=== PATIENT | female | born 1990 | race Caucasian/White ===

== ENCOUNTER 2020-05-07 15:45 | Emergency (ER) | payer OTHER, SELFPAY ==
[2020-05-07 15:47] VITALS: BP 99/57; PULSE 68; PULSE 76; RESP 17; TEMP 36.9; O2SAT 100; O2SAT 99; BMI 17.5
--- NOTE | 2020-05-07 16:13 | ED.VIS.GEN ---
History of Present Illness Chief Complaint: Vag Bleeding Informant: Patient Onset: Today Narrative: 29-year-old female presents with concern for pelvic pain and vaginal bleeding. States that it began this morning. States it is aching in nature. States that she has been passing clots. Has gone through approximately 3 pads today. States that she has had issues with her period before in the past. States that she has felt lightheaded. Denies any chest pain or shortness of breath. He says she has followed up with her [employer] Dr. Trey Menon before in the past for this issue. States that she was briefly on oral contraception however it causes her to have side effects including anger and mood swings. States that every month she does have significant pain with her period which will last for approximately 1 day. Denies any vaginal discharge, fever, chills, urinary symptoms. Last menstrual period approximately 28 days ago. Past Medical History - Allergies and Home Meds Allergies/Adverse Reactions: Allergies nut - unspecified Allergy (Verified 05/07/20 15:46) Hives Primary Care Physician: Romulo Kemp DO [Primary Care Provider] - Past Medical History: None Surgical History: cholecystectomy Lives: Spouse/ Significant Other Smoking Status: Current every day smoker Alcohol: None Drugs: None Review of Systems General: Denies: Chills, Fever, Sweats Eyes: Denies: Visual changes - bilaterally, Diplopia ENT: Denies: Rhinorrhea, Sore throat Cardiovascular: Denies: Chest pain, Palpitations Respiratory: Denies: Dyspnea, Cough, Dyspnea on exertion Gastrointestinal: Denies: Abdominal pain, Nausea, Vomiting, Diarrhea, Melena, Hematochezia Genitourinary: Reports: - - vaginal bleeding. Denies: Dysuria, Hematuria, Frequency Musculoskeletal: Denies: Back pain, Extremity Pain Skin: Denies: Rash, Wounds Neurological: Reports: - - dizziness. Denies: Headache, Weakness, Numbness Physical Exam Vital Signs/Narrative: Vital Signs Temp Pulse Resp BP Pulse Ox 05/07/20 15:47 98.5 F 76 17 99/57 L 100 Inital Vital Signs reviewed: Yes General: Well nourished, Well developed, No Acute Distress Head: Normocephalic, Atraumatic Eyes: Perrl, EOMI ENT: Moist mucous membranes, No rhinorrhea Neck: Supple, Nontender Cardiovascular: Regular rate, Regular rhythm, No murmurs Respiratory: No distress, CTA bilaterally, Chest nontender Abdomen: Soft, Nondistended, Normal bowel sounds, - - TTP in the suprapubic region Back: Nontender, Normal Inspection Extremities: Nontender, No edema Skin: Normal color, No rash Neurological: Alert, Oriented x3, Cranial nerves II-XII grossly intact, Normal Strength, Normal Sensation Psychological: Normal affect, Normal Mood Diagnostic/Tx/Re-eval Laboratory Data 05/07/20 05/07/20 05/07/20 16:15 16:15 17:17 WBC 14.6 H RBC 4.27 Hgb 13.1 Hct 40.0 MCV 93.7 MCH 30.7 MCHC 32.8 RDW Std Deviation 41.0 RDW Coeff of Carline 12.1 Plt Count 232 MPV 10.4 Immature Gran % (Auto) 0.500 Neut % (Auto) 83.4 H Lymph % (Auto) 10.7 L E[place]ka % (Auto) 4.4 Eos % (Auto) 0.7 Baso % (Auto) 0.3 Absolute Neuts (auto) 12.1 H Absolute Lymphs (auto) 1.56 Nucleated RBC % 0 Sodium 140 Potassium 4.1 Chloride 109 H Carbon Dioxide 26.0 Anion Gap 5 BUN 11 Creatinine 0.77 Estim Creat Clear Calc 80.62 Est GFR (MDRD) Af Amer 113 Est GFR (MDRD) Non-Af 93 BUN/Creatinine Ratio 14.3 Glucose 115 H Calcium 8.6 Total Bilirubin 0.80 AST 12 L ALT 22 Alkaline Phosphatase 41 L Total Protein 7.3 Albumin 4.0 Globulin 3.3 Albumin/Globulin Ratio 1.2 Urine Color Urine Clarity Urine pH Ur Specific Gordon Urine Protein Urine Glucose (UA) Urine Ketones Urine Occult Blood Urine Nitrite Urine Bilirubin Urine Urobilinogen Ur Leukocyte Esterase Urine RBC Urine WBC Ur Squamous Epith Cells Urine Bacteria Urine Mucus Urine Test Negative 05/07/20 17:17 WBC RBC Hgb Hct MCV MCH MCHC RDW Std Deviation RDW Coeff of Carline Plt Count MPV Immature Gran % (Auto) Neut % (Auto) Lymph % (Auto) Eureka % (Auto) Eos % (Auto) Baso % (Auto) Absolute Neuts (auto) Absolute Lymphs (auto) Nucleated RBC % Sodium Potassium Chloride Carbon Dioxide Anion Gap BUN Creatinine Estim Creat Clear Calc Est GFR (MDRD) Af Amer Est GFR (MDRD) Non-Af BUN/Creatinine Ratio Glucose Calcium Total Bilirubin AST ALT Alkaline Phosphatase Total Protein Albumin Globulin Albumin/Globulin Ratio Urine Color Yellow Urine Clarity Clear Urine pH 7.0 Ur Specific Gordon 1.010 Urine Protein Negative Urine Glucose (UA) Normal Urine Ketones Negative Urine Occult Blood 250 H Urine Nitrite Negative Urine Bilirubin Negative Urine Urobilinogen Normal Ur Leukocyte Esterase Negative Urine RBC 0-5 SEEN Urine WBC 0 SEEN Ur Squamous Epith Cells 0-5 SEEN Urine Bacteria RARE Urine Mucus 0 SEEN Urine Test - Medical Decision Making Appears well nontoxic. Vital signs within normal limits. Benign abdominal exam. Vaginal exam shows abnormal appearing tissue on the cervix. No evidence of discharge. No significant cervical motion tenderness. Lab work does show nonspecific leukocytosis. Afebrile. Patient not concerned for STDs at this time. Patient has no unilateral tenderness on abdominal pain. Patient's pain has been intermittent and she has had these with every 1 of her periods recently. Patient was advised to follow-up with her [employer] Dr. Marquez within the next 2 to 3 days. Will be given naproxen for home. Asked to return for new or worsening symptoms. Discharged home in stable condition. ED Disposition - Plan for ED Patient: Diagnosis: Pelvic pain Instructions: ED Cramping Menstrual Prescriptions: Naproxen 500 mg PO BID #10 tab Transmission Status: Pending to [id number] Referrals: Romulo Kemp DO [Primary Care Provider] - Patti Marquez MD [STAFF PHYSICIAN] -
[2020-05-07] MEDS: 0.9% Normal Saline 1,000 ML 1000 ML IV (16:16)
[2020-05-07 16:28] LABS: Absolute Lymphocyte Count 1.56 X10^3/uL (0.83-4.51); Absolute Neutrophil Count 12.1 X10^3/uL (2.0-7.7); Basophil# 0.05 X10^3/uL; Basophil% 0.3 % (0-1); Eosinophils% 0.7 % (0-5); Hemoglobin 13.1 g/dL (12.0-15.0); Lymphocyte # 1.56 X10^3/ul (4.0); Lymphocyte % 10.7 % (19-41); Mean Corp Hgb Conc 32.8 g/dL (32-36); Mean Corpuscular Hgb 30.7 pg (27.0-32.0); Mean Corpuscular Volume 93.7 fL (81-99); Mean Platelet Vol. 10.4 fl (6.2-12.0); Monocyte# 0.64 X10^3/uL; Monocyte% 4.4 % (0-10); NRBC Flagged by Analyzer 0 % (0-5); Neutrophil # 12.13 X10^3/uL (2.7-7.7); Neutrophil % 83.4 % (47-70); Platelet Count 232 K/mm3 (150-450); RBC Distribution Width CV 12.1 % (11.6-14.6); Red Blood Count 4.27 M/mm3 (4.2-5.4); White Blood Count 14.6 K/mm3 (4.4-11.0)
[2020-05-07 16:46] LABS: ALB/GLOB Ratio 1.2 RATIO (0.9-2.4); AST(SGOT) 12 U/L (15-37); Alanine Aminotransfer ALT/SGPT 22 U/L (13-56); Alkaline Phosphatase 41 U/L (45-117); Anion Gap 5 (5-15); BUN 11 mg/dL (7-18); BUN/Creat Ratio 14.3 RATIO (10-20); Calcium,Total 8.6 mg/dL (8.5-10.1); Chloride 109 mmol/L (98-107); Creatinine, Serum 0.77 mg/dL (0.55-1.02); EST Glomerular Filtration Rate 93 mL/min (>60); Est Glom Filt Rate - Afr Amer 113 mL/min (>60); Estimated Creatinine Clearance 80.62 ml/min; Globulin 3.3 g/dL (2.2-4.2); Glucose 115 mg/dL (74-106); Potassium 4.1 mmol/L (3.5-5.1); Protein, Total 7.3 g/dL (6.4-8.2); Sodium Level 140 mmol/L (136-145)
[2020-05-07 17:23] LABS: Mucous, Urine 0 SEEN /hpf (<or=2+); White Blood Cells 0 SEEN /hpf (0-5)
[2020-05-07 17:36] LABS: Internal QC Validated? YES +Cl - CLEAR BKGD; Pregnancy, Urine Negative Negative
[2020-05-07 17:37] LABS: Color, Urine Yellow (Yellow); Glucose, Dipstick Normal (Normal); Ketone-Dipstick Negative (Negative); Leukocyte Esterase-Dipstick Negative /ul (Negative); Nitrite-Dipstick Negative (Negative); Occult Blood-Urine 250 /ul (Negative); Protein-Dipstick Negative (Negative); Urine Bilirubin Dipstick Negative (Negative); Urine Clarity Clear (Clear); Urine Urobilinogen Normal (Normal)
[2020-05-07 17:38] LABS: Bacteria RARE /hpf (None Seen); Squamous Epithelial Cells - UA 0-5 SEEN /hpf (5-10)
[2020-05-07 17:39] LABS: Red Blood Cells-Urine 0-5 SEEN /hpf (0-5)
[2020-05-07 18:23] VITALS: RESP 16
[2020-05-07 18:31] VITALS: BP 94/69; RESP 16
[2020-05-07 21:27] LABS: Chlamydia Trachomatis by PCR Negative (Negative); Neisserai gonorrhoeae by PCR Negative (Negative); Probe Check PASS; Sample Adequacy Control PASS; Specimen Processing Control PASS
== END 2020-05-07 18:32 | disposition home or self-care (01) ==
PROVIDERS: Emergency Provider Emergency Medicine; PCP Student in an Organized Health Care Education/Training Program
DX: R10.2 Pelvic and perineal pain (principal); F17.200 Nicotine dependence, unspecified, uncomplicated
CPT/HCPCS: 80053; 81001; 81025; 85025; 87210; 87491; 87591; 96360; 99283; J7030; A4216

== ENCOUNTER → 2020-05-15 | Outpatient (CLI) | payer OTHER, SELFPAY ==
[2020-05-15 11:03] VITALS: BMI 17.5
[2020-05-15 20:45] LABS: Chlamydia Trachomatis by PCR Negative (Negative); Neisserai gonorrhoeae by PCR Negative (Negative); Probe Check PASS; Sample Adequacy Control PASS; Specimen Processing Control PASS
[2020-05-26 19:43] LABS: HPV APTIMA, High Risk Positive (Negative)
== END | disposition home or self-care (01) ==
LOC: LABSPEC 17:16
PROVIDERS: PCP Student in an Organized Health Care Education/Training Program; Referring Provider Nurse Practitioner Women's Health; Visit Provider Nurse Practitioner Women's Health
DX: N89.8 Other specified noninflammatory disorders of vagina (principal); Z11.3 Encounter for screening for infections with a predominantly sexual mode of transmission; Z86.19 Personal history of other infectious and parasitic diseases; Z12.4 Encounter for screening for malignant neoplasm of cervix
CPT/HCPCS: 87491; 87591; 87624; 88175; G0145

== ENCOUNTER → 2020-05-28 | Outpatient (CLI) | payer OTHER, SELFPAY ==
[2020-05-15 11:03] VITALS: BMI 17.5
--- NOTE | 2020-05-28 07:56 | US_ITS ---
STUDY: ULTRASOUND OF THE FEMALE PELVIS - COMPLETE REASON FOR EXAM: Female, 29 years old. Menorrhagia LMP: 05/07/2020 TECHNIQUE: Transabdominal and Transvaginal TECHNICAL QUALITY: Adequate. COMPARISON: None. FINDINGS: The uterus is retroverted and is in a midline position. The uterus measures 7.4 cm x 6.4 cm x 4.7 cm. There are Nabothian cysts of the cervix. The endometrium measures 10.1 mm in thickness, and is hyperechoic. There is no demonstrated endometrial mass. There is no demonstrated myometrial mass. I.U.D. - The patient does not have an I.U.D. The right ovary is visualized. The right ovary measures 3.4 cm x 2.8 cm x 1.8 cm. There is no right ovarian cyst or ovarian mass. There is no visualized right adnexal mass or complex lesion. There is normal arterial and normal venous vascularity. The left ovary is visualized. The left ovary measures 3.5 cm x 2.7 cm x 3.1 cm. There is a 2.4 cm x 2.2 cm x 2 cm left ovarian cyst. There is no visualized left adnexal mass or complex lesion. There is normal arterial and normal venous vascularity. There is no fluid in the cul-de-sac. The pre void volume of the bladder was 109 ml. Polycystic ovary disease: No. US/Transvaginal Non- IMPRESSION: 2.4 cm x 2.2 cm x 2 cm left ovarian cyst. Electronically Signed: Eloy Aguila, at 13:50 EDT , Service support ,
--- NOTE | 2020-05-28 07:56 | US_ITS ---
STUDY: ULTRASOUND OF THE FEMALE PELVIS - COMPLETE REASON FOR EXAM: Female, 29 years old. Menorrhagia LMP: 05/07/2020 TECHNIQUE: Transabdominal and Transvaginal TECHNICAL QUALITY: Adequate. COMPARISON: None. FINDINGS: The uterus is retroverted and is in a midline position. The uterus measures 7.4 cm x 6.4 cm x 4.7 cm. There are Nabothian cysts of the cervix. The endometrium measures 10.1 mm in thickness, and is hyperechoic. There is no demonstrated endometrial mass. There is no demonstrated myometrial mass. I.U.D. - The patient does not have an I.U.D. The right ovary is visualized. The right ovary measures 3.4 cm x 2.8 cm x 1.8 cm. There is no right ovarian cyst or ovarian mass. There is no visualized right adnexal mass or complex lesion. There is normal arterial and normal venous vascularity. The left ovary is visualized. The left ovary measures 3.5 cm x 2.7 cm x 3.1 cm. There is a 2.4 cm x 2.2 cm x 2 cm left ovarian cyst. There is no visualized left adnexal mass or complex lesion. There is normal arterial and normal venous vascularity. There is no fluid in the cul-de-sac. The pre void volume of the bladder was 109 ml. Polycystic ovary disease: No. US/Pelvic (Non ) IMPRESSION: 2.4 cm x 2.2 cm x 2 cm left ovarian cyst. Electronically Signed: Eloy Aguila, at 13:50 EDT , Service support ,
== END | disposition home or self-care (01) ==
LOC: OPUS 07:56
PROVIDERS: PCP Student in an Organized Health Care Education/Training Program; Referring Provider Nurse Practitioner Women's Health; Visit Provider Nurse Practitioner Women's Health
DX: N92.0 Excessive and frequent menstruation with regular cycle (principal)
CPT/HCPCS: 76830; 76856

== ENCOUNTER 2020-06-24 08:11 | Day surgery (SDC) | payer OTHER, SELFPAY ==
[2020-06-11 13:06] VITALS: BMI 17.5
[2020-06-24] VITALS (17 sets, daily range): BP systolic 91–116; BP diastolic 53–73; PULSE 46–87; RESP 16; TEMP 36.2–37.2; O2SAT 94–100; BMI 18.0; BMI 17.9
--- NOTE | 2020-06-24 05:07 | PCM.HPOB.BLA ---
- Problem List (1) Abnormal uterine bleeding (AUB) Status: Acute Comment: failed ocp in past. recommend TVHBS (2) Pelvic pain Status: Acute Comment: plan TVH BS History and Physical Date of Admission: 06/24/20 Intake Vital Signs 06/11/20 BMI 17.5 06/11/20 Height 5 ft 5 in 06/11/20 Weight: 106 lb 06/11/20 BMI 17.6 06/11/20 BP 98/64 Intake Visit Reasons: surg. 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 Patti Milligan MD) household members: spouse number of children: 2 current occupational status: unemployed history of recent travel: No sexually active: Yes Smoking Status: Current every day smoker alcohol intake: current alcohol intake frequency: holidays/special occasions only substance use type: does not use caffeine: Yes what type of physical activity do you participate in: none seatbelt use: always do you feel safe at home: Yes HPI surg. consult TVH: Details: ASHLEY MCDERMOTT is a 29 year old who presents for ocnsultation for hysterectomy. she has a history of heavy bleeding and then has severe dysmenorrhea. she has been on control in the past three different types and she had severe mood side effects. she has had to call off work due to pain and bleeding. she is done having children. Female Reproductive History Cycle Length: 21-35 Bleeding Duration: 5 Questions: Metorrhagia: No, Sexually active: Yes, Dyspareunia: Yes, PCB: No Pregancy History 3 Elective abortions Hx Para 2 Spontaneous abortions 1 Hx # Term Pregnancies Ectopic pregnancies Hx # Pregnancies Multiple births # of living children 2 Past Pregnancies Del. Date Name GA/Weeks Outcome Route Bth Weight Infant Gen Labor Lgth Anesthesia Del [facility] Provider FOB 12/04/10 Serenity 34 live - Female 05/02/14 Taran 38 live - full term Male ROS Const Constitutional: Denies fatigue, fever(s), headache(s), increased appetite, poor appetite, weight gain or weight loss Cardio Card: Denies chest pain Resp Resp: Denies cough or dyspnea GI GI: Reports as per HPI; denies abdominal pain, constipation, nausea or vomiting : Reports as per HPI; denies difficulty urinating, painful urination, nipple discharge, urinary frequency, urinary incontinence, urinary hesitancy, urinary urgency, vaginal discharge, vaginal dryness, vaginal odor or vaginal itching Skin Skin/Breast: Denies change in hair, breast lump, breast pain, breast skin changes or nipple discharge Exam Const General: cooperative, healthy appearing, comfortable, no acute distress, well developed Nutritional Appearance: average body habitus Orientation: alert HENMT Head: normal to inspection, normocephalic Neck Neck: normal visual inspection, trachea midline Thyroid: thyroid normal Resp Effort & Inspection: normal respiratory effort GI Inspection: normal to inspection, non-distended Palpation: soft, no hepatosplenomegaly Bimanual Exam- Adnexa, other: normal adnexae, adnexae mobile, no adnexal masses, pelvic support normal Pelvic Support: normal Skin General: no rashes or lesions noted Assessment & Plan Problems 1. Pelvic pain R10.2 plan TVH BS 2. Abnormal uterine bleeding (AUB) N93.9 failed ocp in past. recommend TVHBS Plan After discussing the patient's diagnosis and treatment plan options, patient wishes to proceed with surgical management. I have discussed with the patient the risks, benefits, and alternatives of the procedure which include but are not limited to risks of anesthesia, bleeding, infection, possible damage to bowel, bladder, or surrounding vasculature which could lead to additional surgery to evaluate any complications. Patient agrees to procedure and wishes to proceed. ACOG/uptodate references given for additional information regarding procedure. Coding Level of Care Code Off vis,est,level 4 Diagnoses Pelvic pain R10.2 Abnormal uterine bleeding (AUB) N93.9 UPDATE- I have seen the patient and performed any clinically relevant updates to the history and physical exam. Patti Milligan MD
[2020-06-24 08:46] LABS: Hematocrit 42.1 % (37-47); Hemoglobin 14.3 g/dL (12.0-15.0); Mean Corpuscular Hgb 31.6 pg (27.0-32.0); Mean Corpuscular Volume 92.9 fL (81-99); Mean Platelet Vol. 10.5 fl (6.2-12.0); Platelet Count 223 K/mm3 (150-450); RBC Distribution Width CV 12.1 % (11.6-14.6); Red Blood Count 4.53 M/mm3 (4.2-5.4); White Blood Count 9.3 K/mm3 (4.4-11.0)
[2020-06-24] MEDS: Gabapentin 600 MG Tablet PO (09:00)
[2020-06-24] MEDS: Acetaminophen 500 MG Tablet 1000 MG PO ×3 (09:00→20:50)
[2020-06-24 09:08] LABS: International Normalized Ratio 1.1; Prothrombin Time (Protime)PT. 13.9 SECONDS (11.7-14.9)
[2020-06-24 09:09] LABS: Partial Thromboplast Time 30.4 Seconds (24.1-36.2)
[2020-06-24 09:10] LABS: AST(SGOT) 17 U/L (15-37); Alanine Aminotransfer ALT/SGPT 24 U/L (13-56); Albumin, Serum 4.1 g/dL (3.2-5.0); Alkaline Phosphatase 42 U/L (45-117); Bilirubin, Direct 0.16 mg/dL (0.00-0.30); Globulin 3.5 g/dL (2.2-4.2); Magnesium 1.9 mg/dL (1.6-2.6); Protein, Total 7.6 g/dL (6.4-8.2)
[2020-06-24 09:11] LABS: Bedside Glucose 90 mg/dL (70-110)
[2020-06-24] MEDS: Lactated Ringers 1,000 ML 40 ML IV (09:16)
[2020-06-24 09:52] LABS: Internal QC Validated? YES +Cl - CLEAR BKGD
[2020-06-24 09:53] LABS: Pregnancy, Urine Negative Negative
--- NOTE | 2020-06-24 10:00 | HYST_PTH ---
PATIENT: ASHLEY MCDERMOTT LOC: [facility] – [place] U#:[id number] AGE/SX: 29/F ROOM: RE06/24/[address]: Dr. Patti Milligan MD : 1990 BED: DIS: 06/25/2020 SPEC #: [id number] RECD: 06/24/20 13:54 STATUS: BIENVENIDO IGNACIO #: [id number] NEAL: 06/24/20 10:[address]: Patti Milligan DEPT: SURGICAL PATHOLOGY RECD BY: Moe Schwartz ENTERED: 06/25/20 09:31 SP TYPE: HYSTERECT OTHR DR: Dr. 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 - Focal hyperkeratosis. - Moderate chronic inflammation. - Resection margin is free of dysplastic changes. Endometrium - secretory endometrium. Myometrium - focal superficial adenomyosis. Bilateral fallopian tubes - no pathologic diagnosis. SJ:rg 06/27/20 COMMENT The entire cervix is examined. Dysplastic changes also involves the endocervical glands. Results from immunohistochemistry ([id number]) for surrogate HPV marker (p16) will be reported separately. Case has been reviewed in consultation with Dr. Matthews who concurs with the above diagnosis. IDC:AM MICROSCOPIC DESCRIPTION Slides are reviewed. GROSS DESCRIPTION Received in fixative is one container labeled with the patient's name and designated uterus, cervix and bilateral fallopian tubes. The specimen consists of a hysterectomy specimen consisting of uterus with cervix and detached bilateral fallopian tubes. The uterus with cervix weighs 89 gm and measures 8 x 6.5 x 4 cm. The serosal surface is bruce, glistening. The ectocervical mucosa is focally eroded. The external os is circular in contour. The endocervical canal measures 2.5 cm in length and the endocervical mucosa is unremarkable. The triangular endometrial cavity measures 3.5 cm in length and up to 4 cm in width. The endometrium is bruce, glistening without any mass lesion and measures 0.3 cm in thickness. Sections of the uterine wall do not reveal any mass lesion and measures up to 2 cm in thickness. The fallopian tubes are not identified as right or left. One of the fallopian tubes measure 4 cm in length and up to 0.6 cm in diameter. The fimbrial end is identified. Sections reveal unremarkable cut surfaces. The second fallopian tube is interrupted in the middle and measures 6 cm in length and up to 0.5 cm in diameter. The fimbrial end is identified. Sections reveal unremarkable cut surfaces. Lei Maker sections are submitted in eight cassettes as follows: 1 - anterior cervix, 2 - posterior cervix, 3 & 4 - anterior uterine wall, 5 & 6 - posterior uterine wall, 7 & 8 - bilateral fallopian tubes with each cassette containing one fallopian tube. / SJ:tasia 06/25/20 The rest of the cervix is submitted in six more cassettes, 9-11 - anterior cervix, 12-14 - posterior cervix. / JUICE:tasia 06/26/20 TC:5 CPT: 68465
--- NOTE | 2020-06-24 10:18 | PCM.OPRPT ---
Problem List (1) Abnormal uterine bleeding (AUB) Status: Acute Comment: failed ocp in past. recommend TVHBS (2) Pelvic pain Status: Acute Comment: plan TVH BS Report of Operation Date of Procedure: 06/24/20 Pre-Operative Diagnosis: aub pelvic pain Post-Operative Diagnosis: same Surgery/Procedure Performed:: tvh bs Description of Surgical Findings:: nl tubes ovaries spring inspector: Bernadette Green Type of Anesthesia:: General Special Medications: none Specimen's removed: uterus tubes Drains: walters Estimated Blood Loss (mL): 50 Fluids Replaced: crystalloid Description of Procedure: Patient was taken to the operating room and was placed under general anesthesia was prepped and draped in normal sterile fashion in the dorsal lithotomy position. Preoperative antibiotics and SCDs and Walters catheter was placed inside the bladder. Weighted speculum was placed in the vagina and the anterior and posterior lip of the cervix was grasped with 2 Memo clamps and circumferentially injected with dilute vasopressin. A circumferential incision was made with a scalpel and the posterior cul-de-sac was entered into sharply and a longneck speculum was placed. The anterior cul-de-sac was also dissected down and entered into sharply and the uterosacral ligaments were clamped cut and suture ligated bilaterally followed by the cardinal ligaments which were Clamped cut and suture ligated bilaterally with 0 Monocryl. The uterus serially descended and progressive bites were taken bilaterally up to the level of the utero-ovarian ligament bilaterally which was clamped transected and double ligated with 0 Monocryl suture and 0 Vicryl free tie. Bilateral fallopian tubes and ovaries were well visualized and noted be within normal limits and the bilateral fallopian tubes were transected across the base with a Harper clamp and removed and sutured with 0 Vicryl suture. Excellent hemostasis was noted. The vagina was closed with [id number] 0 Vicryl pop offs including the posterior and anterior peritoneum in the reapproximation. Excellent hemostasis was noted. All instruments removed from the vagina clear urine was noted at the end of the procedure and patient was awoken and taken recovery in stable condition. Grafts/Implants Used: none - Complications none - Admit VTE Documentation VTE Present on Admission: No VTE Mechan Device Prophylaxis: SCD's VTE Pharm Prophylaxis ordered?: Yes Multi Select Codes - Urinary/Genital Urinary/Genital CPT Codes: 81747 TVH+BS/O <250gr uterus
--- NOTE | 2020-06-24 10:21 | PCM.DC.VHY ---
Discharge Diet: No Restrictions Discharge Activity: Return to Normal Activity, May Not Drive, May Shower May resume sexual activity in: 6-8 weeks Call your doctor if your incision/area has: Continuous Slow Oozing, Sudden Increased Bleeding, Increased Pain/ Swelling, Increased Redness, Foul Smelling Discharge Call your doctor if you observe: Fever of 101 or Higher, Inability to urinate, Inability to have a bowel movement, Using more than one pad per hour Allergies/Adverse Reactions: Allergies nut - unspecified Allergy (Verified 06/24/20 08:47) Hives Medications to take at Discharge acetaminophen 325 mg tablet 325 mg PO ONCE PRN 05/15/20 Metronidazole [Flagyl] 500 mg PO BID 06/13/20 Mv-Min/Iron/Folic/Calcium/Vitk [Women's Multivitamin Tablet] 1 ea PO DAILY 06/13/20 Naproxen [Naprosyn] 250 - 500 mg PO Q8H PRN PRN #30 tab 06/24/20 Oxycodone HCl/Acetaminophen [Percocet 5-325] 1 - 2 tablet PO Q6H PRN PRN 7 Days #15 tablet 06/24/20 The following prescriptions were given: Naproxen [Naprosyn] 250 - 500 mg PO Q8H PRN PRN #30 tab PRN Reason: MILD PAIN Transmission Status: Pending to [facility] Oxycodone HCl/Acetaminophen [Percocet 5-325] 1 - 2 tablet PO Q6H PRN PRN 7 Days #15 tablet PRN Reason: Pain Transmission Status: Sent to [facility] Primary Care Physician: Romulo Kemp DO [Primary Care Provider] - Test Results: Test results from this visit will be discussed in further detail at your follow-up appointment, if applicable. Please Follow Up With: Patti Milligan MD - [phone]
[2020-06-24] MEDS: Lubricating Jelly 60 GM Tube 30 GM TOPICAL (11:15)
[2020-06-24] MEDS: Vasopressin 20 UNITS/ML Vial (12:05)
[2020-06-24] MEDS: Lactated Ringers 1,000 ML 70 ML IV (14:32)
[2020-06-24] MEDS: 0.9% Saline Lock 10 ML Syringe IV (17:17)
[2020-06-24] MEDS: Ketorolac 30 MG/ML Syringe IV ×2 (17:17→23:06)
[2020-06-24] MEDS: oxyCODONE 5 MG Tablet PO (18:36)
[2020-06-24] MEDS: Docusate Sodium 100 MG Capsule PO (20:50)
--- NOTE | 2020-06-25 | IMM_PTH ---
PATIENT: ASHLEY MCDERMOTT [place] [facility] [place][id number] AGE/SX: 29/F ROOM: RE06/24/[address]: Dr. Patti Milligan MD : 1990 BED: DIS: 06/25/2020 SPEC #: [id number] RECD: 06/26/20 13:09 STATUS: BIENVENIDO RESylvia #: [id number] NEAL: 06/25/20 00:[address]: Patti Milligan DEPT: IMMUNOHISTOCHEMISTRY RECD BY: Shanon Ellis ENTERED: 06/26/20 13:10 SP TYPE: IMMUNO OTHR DR: Dr. Romulo Kemp DO Tissues: Uterus, NOS Procedures: p16 (initial) KI-67 (add) P16 (add) PHYSICIAN & INSTITUTION [place] [address] SPECIMEN INFORMATION: Tissue Source: Uterus Clinical Info: Pelvic pain, abnormal uterine bleeding Specimen Number: [id number] #1 & 2 CPT code: 63975, 95811 x3 METHODOLOGY: Deparaffinized sections of prefer/formalin-fixed tissue or PAP/DQ stained slides are incubated with monoclonal/polyclonal antibodies/oligonucleotide probes. Localization is made via biotin free immunoperoxidase method. Appropriate controls are performed and reacted as expected. Results on target cell population are indicated in the following table: RESULTS: ANTIBODY / CLONE RESULT Block 1 P16 (E6H4) positive, focal, block-like Ki-67 (30-9) positive, moderate Block 2 P16 (E6H4) positive, focal, block-like Ki-67 (30-9) positive, moderate These tests were developed and their performance characteristics determined by [facility]. They may not have been cleared or approved by the U.S. Food and Drug Administration. The FDA has determined that such clearance or approval is not necessary. The above immunohistochemical/dualISH markers are ordered and reviewed by the Pathologist. INTERPRETATION: Uterus, hysterectomy: Mild and moderate squamous dysplasia, EDNA II (HSIL). AM:tasia 06/30/20 Case has been reviewed in consultation with Dr. Garcia who concurs with the above diagnosis. IDC:JUICE
[2020-06-25 02:49] VITALS: BP 97/57; PULSE 83; RESP 16; TEMP 37.2; O2SAT 98
[2020-06-25] MEDS: oxyCODONE 5 MG Tablet PO ×2 (02:57→06:49)
[2020-06-25] MEDS: Acetaminophen 500 MG Tablet 1000 MG PO ×2 (02:57→10:30)
--- NOTE | 2020-06-25 04:41 | PCM.PN.OB ---
Subjective: patient recovering well, denies CP, SOB, N, or V. patient is ambulating, voiding ,tolerating adequate po, and pain is controlled with oral medications. - Physical Exam Vitals/I&O's: Vital Signs Temp Pulse Resp BP Pulse Ox 99.0 F 83 16 97/57 L 98 06/25/20 02:49 06/25/20 02:49 06/25/20 02:49 06/25/20 02:49 06/25/20 02:49 Oxygen Flow Rate (L/min) 6 Oxygen Delivery Method Room Air Weight: 108 lb 0.424 oz Body Mass Index (BMI) 17.9 Intake and Output for Last 24 Hours 06/23/20 06/24/20 06/25/20 23:59 23:59 23:59 Intake Total 1203 / 1203 Output Total 850 / 850 Balance 353 / 353 General: Alert, Oriented x3 Laboratory Results 06/24/20 08:25: Urine Test Negative 06/24/20 08:34: WBC 9.3, RBC 4.53, Hgb 14.3, Hct 42.1, MCV 92.9, MCH 31.6, MCHC 34.0, RDW Std Deviation 41.0, RDW Coeff of Carline 12.1, Plt Count 223, MPV 10.5 06/24/20 08:34: PT 13.9, INR 1.1, APTT 30.4 06/24/20 08:34: Magnesium 1.9, Total Bilirubin 0.60, Direct Bilirubin 0.16, AST 17, ALT 24, Alkaline Phosphatase 42 L, Total Protein 7.6, Albumin 4.1, Globulin 3.5 06/24/20 08:34: Blood Type AB POSITIVE, Antibody Screen NEGATIVE 06/24/20 08:43: POC Glucose 90 Current Medications Acetaminophen (Tylenol) 1,000 mg PO Q6H [facility] Last Admin: 06/25/20 02:57 Dose: 1,000 mg Documented by: Docusate Sodium (Colace) 100 mg PO BID [facility] Last Admin: 06/24/20 20:50 Dose: 100 mg Documented by: Enoxaparin Sodium (Lovenox) 40 mg SC DAILY [facility] Lactated Ringer's () 1,000 mls @ 70 mls/hr IV .[id number] [facility] Stop: 06/25/20 14:30 Last Admin: 06/24/20 14:32 Dose: 70 mls/hr Documented by: Ketorolac Tromethamine (Toradol (Bkc)) 30 mg IV Q6H [facility] Stop: 06/25/20 23:31 Last Admin: 06/24/20 23:06 Dose: 30 mg Documented by: Magnesium Oxide (Mag-Ox 400) 400 mg PO DAILY PRN PRN PRN Reason: Constipation Nutritional Formula (Lactose Free) (Ensure Enlive) 120 ml PO TIDCM [facility] Ondansetron HCl (Zofran Odt) 4 mg PO Q6H PRN PRN PRN Reason: NAUSEA Oxycodone HCl (Oxyir) 5 - 10 mg PO Q4H PRN PRN PRN Reason: Pain Score 4-10/10 Last Admin: 06/25/20 02:57 Dose: 5 mg Documented by: Sodium Chloride () 10 - 40 ml IV UD PRN PRN Reason: SALINE FLUSH Last Admin: 06/24/20 17:17 Dose: 10 ml Documented by: Medical Necessity - Tobacco Use Smoking Status: Current every day smoker Tobacco Use: Cigarettes Assessment/Plan All Active Problems (Last Reviewed 05/15/20 @ 10:33 by Mary Guillen) Pelvic pain (Acute) Abnormal uterine bleeding (AUB) (Acute) HPV test positive (Acute) LGSIL on Pap smear of cervix (Acute) patient is s/p tvh POD 1 1. routine ERAS protocol postop care- increase ambulation, encourage oral intake and oral control of pain. lovenox and scds for dvt prophylaxis, patient stable for discharge to home.
[2020-06-25] MEDS: Ketorolac 30 MG/ML Syringe IV (04:56)
[2020-06-25] MEDS: Lactated Ringers 1,000 ML 70 ML IV (04:56)
[2020-06-25 06:13] LABS: Hematocrit 35.4 % (37-47); Hemoglobin 11.5 g/dL (12.0-15.0); Mean Corp Hgb Conc 32.5 g/dL (32-36); Mean Corpuscular Hgb 30.2 pg (27.0-32.0); Mean Corpuscular Volume 92.9 fL (81-99); Mean Platelet Vol. 10.7 fl (6.2-12.0); Platelet Count 215 K/mm3 (150-450); RBC Distribution Width SD 40.7 fl (35.1-43.9); Red Blood Count 3.81 M/mm3 (4.2-5.4); White Blood Count 24.1 K/mm3 (4.4-11.0)
[2020-06-25 06:42] VITALS: BP 92/51; PULSE 64; RESP 16; TEMP 37; O2SAT 99
[2020-06-25 07:25] VITALS: O2SAT 94
[2020-06-25 10:15] VITALS: BP 101/61; PULSE 65; RESP 16; TEMP 37.1; O2SAT 98
[2020-06-25] MEDS: Docusate Sodium 100 MG Capsule PO (10:31)
== END 2020-06-25 11:33 | disposition home or self-care (01) ==
LOC: SDC 08:14 → AC 08:14 → MS3 06-25 13:42
PROVIDERS: Anesthesiology; PCP Student in an Organized Health Care Education/Training Program; Referring Provider Obstetrics & Gynecology; Visit Provider Obstetrics & Gynecology
PROC: (CPT 58260; principal; 2020-06-24 09:40)
DX: N87.1 Moderate cervical dysplasia (principal); N88.0 Leukoplakia of cervix uteri; N72 Inflammatory disease of cervix uteri; N80.0 Endometriosis of uterus; K21.9 Gastro-esophageal reflux disease without esophagitis; F17.210 Nicotine dependence, cigarettes, uncomplicated; Z11.59 Encounter for screening for other viral diseases
CPT/HCPCS: 00944; 58262; 36415; 80076; 81025; 82962; 83735; 85027; 85610; 85730; 86850; 86900; 86901; 87635; 88307; 88341; 88342; 94762; 94799; 99251; 99406; J7120; A4216; G0463; J2405; J3475; U0003

== ENCOUNTER 2020-10-09 20:43 | Emergency (ER) | payer OTHER, SELFPAY ==
[2020-08-04 10:51] VITALS: BMI 17.9
[2020-10-09 20:44] VITALS: BP 140/87; PULSE 114; RESP 16; TEMP 36.2; O2SAT 100; BMI 19.3
--- NOTE | 2020-10-09 21:35 | ED.DCSUM_ITS ---
History of Present Illness Chief Complaint: Abscess Informant: Patient Narrative: 29-year-old female presenting with painful swelling in the left inguinal region. She had concern it could be abscess or possible hernia. It is tender to palpation but is not red and is not fluctuant. She not had systemic signs or symptoms of fever, chill, nausea, vomiting. States she has been otherwise healthy. She has a follow-up with her PCP tomorrow. Past Medical History - Allergies and Home Meds Allergies/Adverse Reactions: Allergies nut - unspecified Allergy (Verified 10/09/20 20:46) Hives Primary Care Physician: Romulo Kemp DO [Primary Care Provider] - Prior records reviewed: Yes Past Medical History: - - Anxiety Surgical History: cholecystectomy, - - Hysterectomy Lives: Spouse/ Significant Other Smoking Status: Current every day smoker Alcohol: None Drugs: None Review of Systems General: Denies: Chills, Fever, Sweats Eyes: Denies: Visual changes - bilaterally, Diplopia ENT: Denies: Rhinorrhea, Sore throat Cardiovascular: Denies: Chest pain, Palpitations Respiratory: Denies: Dyspnea, Cough, Dyspnea on exertion Gastrointestinal: Denies: Abdominal pain, Nausea, Vomiting, Diarrhea, Melena, Hematochezia Genitourinary: Denies: Dysuria, Hematuria, Frequency Musculoskeletal: Denies: Back pain, Extremity Pain Skin: Denies: Rash, Wounds Neurological: Denies: Headache, Weakness, Numbness Physical Exam Vital Signs/Narrative: Vital Signs Temp Pulse Resp BP Pulse Ox 10/09/20 20:44 97.1 F L 114 H 16 140/87 H 100 Inital Vital Signs reviewed: Yes General: Well nourished, Well developed, No Acute Distress Head: Normocephalic, Atraumatic Eyes: Perrl, EOMI ENT: Moist mucous membranes, No rhinorrhea Cardiovascular: Regular rate, Regular rhythm Respiratory: No distress, CTA bilaterally Abdomen: Soft, Nontender : - - Left inguinal lymphadenopathy. Back: Nontender, Normal Inspection Extremities: Nontender, No edema Skin: Normal color, No rash. Negative for: Rash Neurological: Alert, Oriented x3 Psychological: Normal affect, Normal Mood Diagnostic/Tx/Re-eval Clinical Impression(s) from Imaging Studies Abdomen/Pelvis CT 10/09/20 21:36 IMPRESSION: Complex/involuting right ovarian cyst. Trace free fluid in the pelvis, which can be physiologic. There is no appendicitis, colitis, ascites, abscess, collection, perforation or obstruction. Other nonacute findings as outlined above. Electronically Signed: Maribell Garcia MD at 23:53 EST , Service support , Laboratory Data 10/09/20 10/09/20 10/09/20 21:51 21:51 22:05 WBC 13.6 H RBC 4.75 Hgb 13.9 Hct 43.6 MCV 91.8 MCH 29.3 MCHC 31.9 L RDW Std Deviation 40.8 RDW Coeff of Carline 12.0 Plt Count 284 MPV 10.2 Immature Gran % (Auto) 0.400 Neut % (Auto) 61.8 Lymph % (Auto) 30.1 [place] % (Auto) 6.4 Eos % (Auto) 0.9 Baso % (Auto) 0.4 Absolute Neuts (auto) 8.4 H Absolute Lymphs (auto) 4.09 Nucleated RBC % 0 Sodium 138 Potassium 3.8 Chloride 104 Carbon Dioxide 28.0 Anion Gap 6 BUN 13 Creatinine 0.78 Estim Creat Clear Calc 85.34 Est GFR (MDRD) Af Amer 110 Est GFR (MDRD) Non-Af 91 BUN/Creatinine Ratio 16.6 Glucose 89 Calcium 9.7 Urine Color Yellow Urine Clarity Clear Urine pH 6.0 Ur Specific [place] 1.015 Urine Protein Negative Urine Glucose (UA) Normal Urine Ketones Negative Urine Occult Blood Negative Urine Nitrite Negative Urine Bilirubin Negative Urine Urobilinogen Normal Ur Leukocyte Esterase Negative Urine RBC 0 SEEN Urine WBC 0-5 SEEN Ur Squamous Epith Cells 0-5 SEEN Urine Bacteria 2+ Urine Mucus 0 SEEN - Medical Decision Making 29-year-old female with painful lump in the left inguinal area which feels like it could be consistent with lymphadenopathy but also could be a hernia. She had lab work which showed a slight leukocytosis at 13,000. She is not having systemic signs or symptoms. CT of the abdomen pelvis is negative. There appears to be a lymphadenopathy here on the CT. Patient has follow-up with her primary care tomorrow and will follow up with him. I counseled the patient on return precautions. Impression: 1. Left inguinal lymphadenopathy ED Disposition - Plan for ED Patient: Disposition: Home or Assisted Living Instructions: ED Lymphangitis Referrals: Romulo Kemp DO [Primary Care Provider] -
--- NOTE | 2020-10-09 21:36 | CT_ITS ---
STUDY: CT ABDOMEN AND PELVIS WITH CONTRAST REASON FOR EXAM: Female, 29 years old. LEFT GROIN PAIN, INCREASING IN SIZE AND PAIN TODAY, HX GB, HYSTERECTOMY, D and C RADIATION DOSAGE (If Supplied By Facility): CTDIvol = ( 9.28 ) mGy, DLP = ( 295.92 ) mGycm TECHNIQUE: Transaxial 3.75 mm images were obtained from the dome of the diaphragm to the symphysis pubis with oral contrast. 100mL Isovue-370 was administered. Sagittal and coronal images were reconstructed. Individualized dose optimization techniques were used for this CT. COMPARISON: CT abdomen and pelvis 08/18/2017. 07/08/2011. FINDINGS: Minimal scarring or atelectasis in the right middle lobe. The visualized portions of the heart are within normal limits. Normal liver. Gallbladder not visualized consistent with cholecystectomy. Normal postoperative extrahepatic biliary system. Normal spleen. Normal pancreas. Normal bilateral adrenal glands. Normal right kidney. Normal left kidney. Normal visualized stomach. Normal small intestine. Normal colon. The appendix is visualized and appears normal. Normal abdominal aorta. Normal inferior vena cava. Normal retroperitoneum. Normal urinary bladder. Peripherally enhancing low-attenuation in the right ovary 2.5 x 2.3 x 2.3 cm measuring 31 [place] units consistent with an involuting cyst. Uterus is surgically absent. Trace free fluid in the pelvis, which can be physiologic. Normal abdominal wall. Normal osseous structures. CT/Abdomen/Pelvis WITH Contrast IMPRESSION: Complex/involuting right ovarian cyst. Trace free fluid in the pelvis, which can be physiologic. There is no appendicitis, colitis, ascites, abscess, collection, perforation or obstruction. Other nonacute findings as outlined above. Electronically Signed: Maribell Garcia MD at 23:53 EST , Service support ,
[2020-10-09 22:06] LABS: Absolute Lymphocyte Count 4.09 X10^3/uL (0.83-4.51); Absolute Neutrophil Count 8.4 X10^3/uL (2.0-7.7); Basophil# 0.06 X10^3/uL; Basophil% 0.4 % (0-1); Eosinophil# 0.12 X10^3/uL; Eosinophils% 0.9 % (0-5); Hematocrit 43.6 % (37-47); Hemoglobin 13.9 g/dL (12.0-15.0); Lymphocyte # 4.09 X10^3/ul (4.0); Lymphocyte % 30.1 % (19-41); Mean Corp Hgb Conc 31.9 g/dL (32-36); Mean Corpuscular Hgb 29.3 pg (27.0-32.0); Mean Corpuscular Volume 91.8 fL (81-99); Mean Platelet Vol. 10.2 fl (6.2-12.0); Monocyte# 0.87 X10^3/uL; Monocyte% 6.4 % (0-10); NRBC Flagged by Analyzer 0 % (0-5); Neutrophil # 8.39 X10^3/uL (2.7-7.7); Neutrophil % 61.8 % (47-70); Platelet Count 284 K/mm3 (150-450); RBC Distribution Width SD 40.8 fl (35.1-43.9); Red Blood Count 4.75 M/mm3 (4.2-5.4); White Blood Count 13.6 K/mm3 (4.4-11.0)
[2020-10-09 22:12] LABS: Mucous, Urine 0 SEEN /hpf (<or=2+); Red Blood Cells-Urine 0 SEEN /hpf (0-5)
[2020-10-09 22:14] LABS: Color, Urine Yellow (Yellow); Glucose, Dipstick Normal (Normal); Ketone-Dipstick Negative (Negative); Leukocyte Esterase-Dipstick Negative /ul (Negative); Nitrite-Dipstick Negative (Negative); Occult Blood-Urine Negative /ul (Negative); Protein-Dipstick Negative (Negative); Specific Gravity, Urine 1.015 (1.002-1.030); Urine Bilirubin Dipstick Negative (Negative); Urine Clarity Clear (Clear); Urine Urobilinogen Normal (Normal)
[2020-10-09 22:17] LABS: Anion Gap 6 (5-15); BUN 13 mg/dL (7-18); BUN/Creat Ratio 16.6 RATIO (10-20); Calcium,Total 9.7 mg/dL (8.5-10.1); Chloride 104 mmol/L (98-107); Creatinine, Serum 0.78 mg/dL (0.55-1.02); EST Glomerular Filtration Rate 91 mL/min (>60); Est Glom Filt Rate - Afr Amer 110 mL/min (>60); Estimated Creatinine Clearance 85.34 ml/min; Glucose 89 mg/dL (74-106); Potassium 3.8 mmol/L (3.5-5.1); Sodium Level 138 mmol/L (136-145)
[2020-10-09 22:23] LABS: Bacteria 2+ /hpf (None Seen); Squamous Epithelial Cells - UA 0-5 SEEN /hpf (5-10); White Blood Cells 0-5 SEEN /hpf (0-5)
[2020-10-09] MEDS: Morphine 4 MG/ML Syringe IV (23:30)
[2020-10-09] MEDS: Ondansetron 4 MG/2 ML Vial IV (23:31)
[2020-10-09 23:32] VITALS: BP 108/70; PULSE 102; RESP 14; O2SAT 95
== END 2020-10-10 00:23 | disposition home or self-care (01) ==
PROVIDERS: Emergency Provider Student in an Organized Health Care Education/Training Program; PCP Student in an Organized Health Care Education/Training Program
DX: R59.0 Localized enlarged lymph nodes (principal); F17.200 Nicotine dependence, unspecified, uncomplicated
CPT/HCPCS: 74177; 80048; 81001; 85025; 96374; 96375; 99283; Q9967; A4216; J2405

== ENCOUNTER 2023-06-27 08:22 | Emergency (ER) | payer OTHER, SELFPAY ==
[2023-06-27 08:22] VITALS: BP 126/81; PULSE 108; RESP 16; TEMP 36.2; O2SAT 100; BMI 19.4
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
== END 2023-06-27 09:52 | disposition home or self-care (01) ==
LOC: ED 09:01
PROVIDERS: Emergency Provider Emergency Medicine; PCP Student in an Organized Health Care Education/Training Program; Visit Provider Emergency Medicine
DX: S97.82XA Crushing injury of left foot, initial encounter (principal); F17.210 Nicotine dependence, cigarettes, uncomplicated; W23.2XXA Caught, crushed, jammed or pinched between a moving and stationary object, initial encounter
CPT/HCPCS: 73630; 99282

== ENCOUNTER 2024-09-13 20:00 | Emergency (ER) | payer OTHER, SELFPAY ==
[2024-09-13 20:00] VITALS: BP 125/87; PULSE 105; RESP 26; TEMP 36.2; O2SAT 99; BMI 18.3
--- NOTE | 2024-09-13 22:11 | EDS_ITS ---
HPI History of Present Illness Chief Complaint: Laceration Detail of Chief Complaint: Injury to right little finger Informant: patient Onset/Context/Timing Onset: Today and Hours Mechanism/Context: Blunt Injury Location of pain/injuries: - (Right little finger) Quality of Pain: Aching Location: Nail of the right little finger Current Severity: Mild Maximum Severity: Moderate Worsened by: Use of right hand Relieved by: Remaining still Associated Symptoms Associated Symptoms: Negative for Parasthesias, Weakness, Loss of function or Inability to ambulate Narrative Narrative: Patient is a 33-year-old [id number] woman. She presents with injury to her left little finger. She was peeling potatoes. The potato slicer hit her nail and partially avulsed the nail. She denies pain in the finger. She denies limited range of motion. She states her last tetanus shot was when she was 14. Tetanus Immunization: >10 years Prior similar symptoms: No Recent Illness/Hospitalization: No PFSH PFSH Medical History (Updated 09/13/24 @ 22:[address] Yusuf Roe MD) EDNA III (cervical intraepithelial neoplasia III) Home Medications ?Medication ?Instructions ?Recorded ?Last Taken ?Type acetaminophen 325 mg tablet 325 mg PO ONCE PRN Headache 08/04/20 Unknown History (Tylenol) lorazepam 1 mg tablet 1 mg PO PRN PRN Anxiety 10/09/20 Unknown History Allergy/AdvReac Type Severity Reaction Status Date / Time nut - unspecified Allergy Hives Verified 09/13/24 20:00 Family History Father Heart disease Mother COPD (chronic obstructive pulmonary disease) Diabetes Grandfather Heart disease Surgical History Hx of bilateral salpingectomy History of total vaginal hysterectomy (TVH) History of oral surgery History of dilation and curettage History of cholecystectomy Social History household members: spouse number of children: 2 current occupational status: employed history of recent travel: No sexually active: Yes Smoking Status: Current every day smoker tobacco type: cigarettes alcohol intake: current alcohol intake frequency: holidays/special occasions only substance use type: does not use caffeine: Yes what type of physical activity do you participate in: none seatbelt use: always do you feel safe at home: Yes TYSHAWN ROS ED Neurologic Neurologic: Denies paresthesias or weakness Hematologic/Lymphatic Hematologic/Lymphatic: Denies easy bleeding or easy bruising EXAM Physical Exam Const Vital Signs: 09/13/24 20:00 Temperature 97.2 F L Temperature Source Temporal Pulse Rate 105 H Respiratory Rate 26 H Blood Pressure 125/87 H Blood Pressure Mean 99 Pulse Ox 99 Oxygen Delivery Method Room Air Positive well nourished and well developed General Appearance ED: well developed and NAD HEENT atraumatic Eyes PERRL and EOMs intact bilaterally Resp normal respiratory effort Cardio regular rhythm Rate: regular rate Extremity Extremity Narrative: There is injury to the nailbed of the right little finger. The extensor Intrasite tendon is functionally intact. The flexor digitorum superficialis and flexor digitorum profundus are intact. Patient has normal to point discrimination. Patient has normal capillary refill. Since there is no swelling of the digit or pain on the volar surface x-ray was not obtained this is a soft tissue injury. Neuro oriented x3 and CN's II-XII intact bilaterally Sensorium / Orientation: alert Skin No no wounds Skin Narrative: Nailbed injury PROC Procedures Other Procedures Procedure(s): Digit was anesthetized by digital block using 1% lidocaine without epinephrine. A total of 2.5 cc was infiltrated. After 10 minutes patient had no sensation in the digit. The nail was removed. Was removed in 2 pieces. There is a small flap like laceration distal ulnar side of the nailbed. Using 5-0 Vicryl 1 simple interrupted stitch was placed. The nail was cleansed. The nail was then sutured back in place. Patient's wound was irrigated with 100 cc of normal saline. In my opinion antibiotics are not indicated. Discharge Plan Triage Chief Complaint: Laceration ED Provider: Yusuf Roe Dx/Rx/DC Orders Clinical Impression: Nailbed laceration, finger Instructions: ED Laceration, All Closures Prescriptions: No Action acetaminophen [Tylenol] 325 mg tablet 325 mg PO ONCE PRN (Reason: Headache) lorazepam 1 MG tablet 1 mg PO PRN PRN (Reason: Anxiety) Patient Comments: 1 MG PO TID 5 days anxiety Primary Care Provider: Romulo Kemp Referrals: Romulo Kemp DO [Primary Care Provider] - Lebron Bates MD [Med Staff - Active Staff] - 3-5 Days Print Language: Kinyarwanda Disposition Disposition: Home, Self Care
[2024-09-13] MEDS: Lidocaine 1% (20 ml mdv) 20 ML Vial 10 ML INFILT (22:13)
[2024-09-13] MEDS: Diphth,Pertuss(Acell),Tet Vac 0.5 ML Vial IM (22:16)
== END 2024-09-13 22:36 | disposition home or self-care (01) ==
PROVIDERS: Emergency Provider Emergency Medicine; PCP Student in an Organized Health Care Education/Training Program; Referring Provider Emergency Medicine; Visit Provider Emergency Medicine
DX: S61.316A Laceration without foreign body of right little finger with damage to nail, initial encounter (principal); W26.8XXA Contact with other sharp object(s), not elsewhere classified, initial encounter; F17.210 Nicotine dependence, cigarettes, uncomplicated
CPT/HCPCS: 11760; 90715; 99282

== ENCOUNTER → 2025-02-22 | Outpatient (CLI) | payer OTHER, SELFPAY ==
[2025-02-22 12:09] LABS: Hematocrit 41.8 % (37-47); Hemoglobin 13.8 g/dL (12.0-15.0); Mean Corpuscular Hgb 30.6 pg (27.0-32.0); Mean Corpuscular Volume 92.7 fL (81-99); Mean Platelet Vol. 11.1 fl (6.2-12.0); Platelet Count 272 K/mm3 (150-450); RBC Distribution Width CV 12.2 % (11.6-14.6); RBC Distribution Width SD 41.4 fl (35.1-43.9); Red Blood Count 4.51 M/mm3 (4.2-5.4)
[2025-02-22 12:48] LABS: Free T3 3.2 pg/mL (2.18-3.98)
== END | disposition home or self-care (01) ==
LOC: LAB 11:24
PROVIDERS: PCP Student in an Organized Health Care Education/Training Program; Referring Provider Nurse Practitioner Family; Visit Provider Nurse Practitioner Family
DX: Z00.00 Encounter for general adult medical examination without abnormal findings (principal); Z83.49 Family history of other endocrine, nutritional and metabolic diseases
CPT/HCPCS: 36415; 84432; 84439; 84443; 84481; 85027; 86376; 86800

== ENCOUNTER → 2025-02-25 | Outpatient (CLI) | payer OTHER, SELFPAY ==
[2025-02-25 17:40] LABS: HIV Nonreactive (Nonreactive); Syphilis Antibodies Nonreactive (Nonreactive)
[2025-02-27 20:07] LABS: HCV Quant. RNA PCR HCV Not Detected IU/mL (.)
[2025-02-28 04:07] LABS: Chlamydia By Nucleic Acid AMP Negative (Negative); Gonococcus By Nucleic Acid AMP Negative (Negative)
[2025-02-28 12:08] LABS: HPV APTIMA, High Risk Negative (Negative)
== END | disposition home or self-care (01) ==
PROVIDERS: PCP Student in an Organized Health Care Education/Training Program; Referring Provider Nurse Practitioner Women's Health; Visit Provider Nurse Practitioner Women's Health
DX: Z12.4 Encounter for screening for malignant neoplasm of cervix (principal); Z20.2 Contact with and (suspected) exposure to infections with a predominantly sexual mode of transmission
CPT/HCPCS: 36415; 86703; 86780; 87491; 87522; 87591; 87624; 88175; G0145

== ENCOUNTER 2025-07-23 17:02 | Emergency (ER) | payer OTHER, SELFPAY ==
[2025-07-23 17:02] VITALS: BP 118/77; PULSE 100; RESP 14; TEMP 35.6; O2SAT 100; BMI 18.5
--- OUTSIDE RECORDS SUMMARY | 2025-07-23 19:07 | XMS RPT_ITS | CCD ---
Author Organization [facility] Care Team Providers Care Cloth Desizing Range Tender Name Role Phone KIMMIE, CROW Unavailable Unavailable KEMP, ROMULO Unavailable Unavailable KIMMIE, CROW Unavailable Unavailable KEMP, ROMULO Unavailable Unavailable JILLIAN MARTINEZ Unavailable Unavailable KEMP, ROMULO Unavailable Unavailable Romulo Kemp DO Primary Care Provider Romulo Kemp DO Primary Care Provider Romulo Kemp DO Primary Care Provider Pily CONSTRUCTION EQUIPMENT TECHNICIAN.LEGAL CONSULTANT, Suad Unavailable Dr. Romulo Kemp DO Primary Care Provider Pily PRIMING POWDER PREMIX BLENDER-CSuad Attending Provider Pily PRIMING POWDER PREMIX BLENDER-CSuad Referring Provider Dr. Romulo Kemp DO Referring Provider Jordi PRIMING POWDER PREMIX BLENDER-CKiara Attending Provider Jordi PRIMING POWDER PREMIX BLENDER-CKiara Referring Provider Dr. Dustin Flowers MD Attending Provider Justo, Romulo Primary Care Unavailable Kemp, Romulo Referring Unavailable Dustin Flowers Attending Unavailable Kemp, Romulo Referring Unavailable Kemp, Romulo Primary Care Unavailable Keystone PRIMING POWDER PREMIX BLENDERKiara Attending Unavailable Jordi PRIMING POWDER PREMIX BLENDERKiara Attending Unavailable Justo, Romulo Primary Care Unavailable Jordi PRIMING POWDER PREMIX BLENDER, Kiara Referring Unavailable Kemp, Romulo Primary Care Unavailable Pily PRIMING POWDER PREMIX BLENDER, Suad Referring Unavailable Pily PRIMING POWDER PREMIX BLENDER, Suad Attending Unavailable Justo, Romulo Primary Care Unavailable Roe, Yusuf Referring Unavailable Roe, Yusuf Attending Unavailable Assessment, Health Risk Referring Unavaila ble Assessment, Health Risk Attending Unavaila ble Romulo Kemp Primary Care Unavailable Marin STEWARTN.Roxana HERNANDEZ Unavailable [phone] ROMULO KEMP Primary Care Unavailable PILYSUAD Attending Unavailable ROMULO KEMP Primary Care Unavailable SELF Referring Unavailable ANABEL HUGHES Attending Unavailable ROMULO KEMP Primary Care Unavailable ROMULO KEMP Primary Care Unavailable ANABEL HUGHES Referring Unavailable Allergies Allergy Classification Reported Allergen(s) Allergy Type Date of Onset Reaction(s) Facility (13 sources) Seasonal allergy; Translations: [SEASONAL ALLERGIES] Allergy to substance 3 Other: See Comments [facility] Work Phone: (13 sources) tree nut, unspecified; Translations: [TREE NUTS] Drug Allergy 7 [facility] (2 sources) Seasonal Allergies: Uncoded; Translations: [Seasonal Allergies: Uncoded] Allergy to substance 5 [facility] (2 sources) nut - unspecified; Translations: [nut - unspecified] Allergy to substance 5 [facility] Medications Current Medications Medication Drug Class(es) Dates Sig (Normalized) Sig (Original) acetaminophen 325 mg oral tablet (16 sources) Start: 08-04-2020 take 1 tablet by mouth once as needed for headache Acetaminophen (Tylenol) 325 mg tablet Active 325 mg PO ONCE as needed for Headache August 04, 2020 12:00am Start: 05-15-2020 End: 07-10-2020 take 1 tablet by mouth once as needed for pain Acetaminophen (Tylenol) 325 mg tablet Discontinued 325 mg PO ONCE as needed for Pain Or Fever May 15, 2020 12:00am July 10, 2020 9:22am take 2 tablets by [facility] every six hours as needed acetaminophen (TYLENOL) 325 mg tablet Indications: Screening for cervical cancer , Encounter for gynecological examination with abnormal finding , Abnormal uterine bleeding Take 650 mg by mouth every 6 hours as needed. Active Comment on above: Take 650 mg by mouth every 6 hours as needed. [id number] 200 actuat albuterol 0.09 mg/actuat metered dose inhaler (13 sources) beta2-Adrenergic Agonist Start: 2018 End: 2023 take 2 puff(s) by inhalation every four hours as needed albuterol HFA (PROVENTIL HFA, VENTOLIN HFA) 90 mcg/actuation inhaler Indications: Wheezing Inhale 2 Puffs as instructed every 4 hours as needed. 1 Each 08/14/2024 Active Comment on above: Inhale 2 Puffs as in structed every 4 hours as needed. amoxicillin 875 mg / clavulanate 125 mg oral tablet (3 sources) Penicillin-class Antibacterial Start: 2023 End: 2023 take 1 tablet by mouth twice daily amoxicillin-clavulana te potassium (AUGMENTIN) 875-125 mg per tablet Indications: Dental infection Take 1 tablet by mouth two times a day for 10 days. 20 tablet 08/03/2024 08/13/2024 Active azithromycin 250 mg oral tablet (1 source) Macrolide Antimicrobial Start: 2023 End: 2023 take 2 tablets by mouth once daily, then take 1 tablet by mouth once daily azithromycin (ZITHROMAX) 250 mg tablet Take 2 tablets by mouth once daily for 1 day, THEN 1 tablet once daily for 4 days. 6 tablet 08/07/2024 08/12/2024 Active benzonatate 100 mg oral capsule (7 sources) Non-narcotic Antitussive Start: 2018 End: 2023 take 1 capsule by mouth every eight hours as needed for cough and cough benzonatate (TESSALON PERLES) 100 mg capsule Indications: Cough Take 1 capsule by mouth three times daily as needed. 40 capsule 01/05/2019 08/14/2024 Discontinued Comment on above: Take 1 capsule by [facility] three times daily as needed. cefadroxil 500 mg oral capsule (3 sources) Cephalosporin Antibacterial Start: 2023 End: 2023 take 1 capsule by mouth twice daily cefADROxil (DURICEF) 500 mg capsule Take 1 capsule by mouth two times a day for 10 days. 20 capsule 08/14/2024 08/24/2024 Active colestipol hydrochloride 1000 mg oral tablet (7 sources) Bile Acid Sequestrant Start: 2017 End: 2023 take 1 tablet by mouth once daily colestipol (COLESTID) 1 gram tablet Take 1 tablet by mouth once daily. 30 tablet 5 12/12/2017 08/14/2024 Discontinued Comment on above: Take 1 tablet by flor once daily. cyclobenzaprine hydrochloride 10 mg oral tablet (8 sources) Muscle Relaxant Start: 2020 End: 2023 take 1 tablet by mouth every twelve hours as needed cyclobenzaprine (FLEXERIL) 10 mg tablet Take 1 tablet by mouth twice daily as needed for muscle spasm. 20 tablet 1 03/15/2023 08/14/2024 Discontinued Comment on above: Take 1 tablet by flor twice daily as needed for Muscle Spasm. estradiol 1 mg oral tablet (7 sources) Estrogen Start: 2017 End: 2023 take 1 tablet by mouth once daily estradiol (ESTRACE) 1 mg tablet Take 1 tablet by mouth once daily for 10 days. 10 tablet 02/20/2018 08/14/2024 Discontinued Comment on above: Take 1 tablet by flor once daily for 10 days. FLUoxetine 10 mg oral capsule (1 source) Serotonin Reuptake Inhibitor Start: 2024 take 1 capsule by mouth once daily Fluoxetine 10 mg capsule Active 10 mg PO daily 90 May 02, 2025 12:00am fluticasone propionate 0.05 mg/actuat metered dose nasal spray (7 sources) Corticosteroid Start: 2016 End: 2023 take 2 spray(s) by mouth once daily fluticasone (FLONASE) 50 mcg/actuation nasal spray Indications: Acute non-recurrent maxillary sinusitis , Cough Use 2 Sprays in each nostril once daily. Rinse mouth after use. 1 Bottle 2 02/02/2017 08/14/2024 Discontinued Comment on above: Use 2 Sprays in each nostril once daily. Rinse mouth after use. Food Supplement, Lactose-Free (ENSURE ACTIVE HIGH PROTEIN) liqd (7 sources) Start: 2017 End: 2023 take 237 mL by mouth twice daily Food Supplement, Lactose-Free (ENSURE ACTIVE HIGH PROTEIN) liqd Indications: Severely underweight adult , Bile reflux gastritis Take 237 mL by mouth twice daily. 60 Bottle 3 12/13/2017 08/14/2024 Discontinued Start: 12-13-2017 take 237 mL by mouth twice daily Food Supplement, Lactose-Free (ENSURE ACTIVE HIGH PROTEIN) liqd Indications: Severely underweight adult , Bile reflux gastritis Take 237 mL by mouth twice daily. 60 Bottle 3 12/13/2017 Active Comment on above: Take 237 mL by mouth twice daily. 12 hr guaiFENesin 600 mg extended release oral tablet (7 sources) Start: 01-06-20 End: 08-14-20 take 2 tablets by mouth twice daily guaiFENesin (MUCINEX) 600 mg 12 hr tablet Indications: Influenza-like illness Take 2 tablets by mouth twice daily. 30 tablet 01/05/2019 08/14/2024 Discontinued Comment on above: Take 2 tablets by mo [facility] twice daily. hydrOXYzine hydrochloride 25 mg oral tablet (7 sources) Antihistamine Start: 04-20-20 End: 08-14-20 take 1 tablet by mouth every six hours as needed hydrOXYzine HCl (ATARAX) 25 mg tablet Take 1 tablet by mouth every 6 hours as needed for Itching/Rash. 30 tablet 04/20/2019 08/14/2024 Discontinued Comment on above: Take 1 tablet by flor every 6 hours as needed for Itching/Rash. 12 hr hyoscyamine sulfate 0.375 mg extended release oral tablet (9 sources) Start: 12-12-19 18 take 1 tablet by mouth twice daily hyoscyamine SR (SYMAX-SR) 0.375 mg 12 hr tablet Take 1 tablet by mouth twice daily. 60 tablet 3 12/12/2017 Active Comment on above: Take 1 tablet by flor twice daily. LORazepam 1 mg oral tablet (16 sources) Benzodiazepine Start: 10-09-20 20 Lorazepam 1 MG tablet Active 1 mg PO NEEDED as needed for Anxiety October 09, 2020 1:00am Start: 06-25-2020 End: 06-30-2020 take 1 tablet by mouth three times daily Lorazepam 1 MG tablet Discontinued 1 mg PO THREE TIMES A DAY 10 5 0 June 25, 2020 12:00am June 29, 2020 12:00am June 30, 2020 12:02am anxiety lorazepam (ATIVA N ORAL) Take by mouth. Active lorazepam (ATIVA N ORAL) Take by mouth. 0 Active Comment on above: Take by mouth. meclizine hydrochloride 12.5 mg oral tablet (7 sources) Antiemetic Start: End: take 1 tablet by mouth every six hours as needed for dizziness and dizziness meclizine (ANTIVERT) 12.5 mg tab Indications: Dizziness Take 1 tablet by mouth every 6 hours as needed (dizziness). 20 tablet 07/07/2021 08/14/2024 Discontinued Comment on above: Take 1 tablet by flor th every 6 hours as needed (dizziness). 24 hr nicotine 0.583 mg/hr transdermal system (7 sources) Cholinergic Nicotinic Agonist Start: End: apply 1 dose transdermal route every twenty-four hours nicotine (NICODERM) 14 mg/24 hr Indications: nicotine withdrawal symptoms , smoking cessation Apply 1 Patch as directed every 24 hours. 30 Patch 1 12/09/2020 08/14/2024 Discontinued Comment on above: Apply 1 Patch as dir ected every 24 hours. nitrofurantoin, macrocrystals 25 mg / nitrofurantoin, monohydrate 75 mg oral capsule (2 sources) Nitrofuran Antibacterial Start: End: take 1 capsule by mouth twice daily nitrofurantoin monohydrate and macrocrystal (MACROBID) 100 mg capsule Take 1 capsule by mouth two times a day for 5 days. 10 capsule 08/05/2024 08/10/2024 Active nystatin 230007 unt/ml oral suspension (7 sources) Polyene Antifungal Start: End: nystatin (MYCOSTATIN) 100,000 unit/mL suspension Take 5 mL by mouth four times daily. 1tsp swish in mouth for several minutes, then swallow (or expectorate) 4 times daily until gone. 200 mL 09/20/2018 08/14/2024 Discontinued Comment on above: Take 5 mL by mouth f our times daily. 1tsp swish in mouth for several minutes, then swallow (or expectorate) 4 times daily until gone. ondansetron 8 mg disintegrating oral tablet (16 sources) Serotonin-3 Receptor Antagonist Start: End: ondansetron orally disintegrating (ZOFRAN ODT) 8 mg disintegrating tablet Take one tab 30 min prior to taking azithromycin. Can repeat in 8 hrs if needed. 2 tablet 10/13/2020 08/14/2024 Discontinued Start: 08-18-2017 End: 08-14-2024 take 1 tablet by mouth every eight hours as needed for nausea Ondansetron 4 MG tablet Discontinued 4 mg PO EVERY 8 HOURS NEEDED as needed for Nausea August 18, 2017 12:00am May 15, 2020 10:32am Comment on above: DISSOLVE ONE TABLET BY MOUTH EVERY 8 HOURS NEEDED FOR NAUSEA Take one tab 30 min prior to taking azithromycin. Can repeat in 8 hrs if needed. predniSONE 20 mg oral tablet (4 sources) Start: 08-03-2024 End: 08-07-2024 take 1 tablet by mouth once daily at mealtime predniSONE (DELTASONE) 20 mg tablet Indications: Bronchitis Take 1 tablet by mouth once daily for 4 days. Take daily with food. 4 tablet 08/03/2024 08/07/2024 Active Start: 03-15-2023 End: 03-20-2023 take 2 tablets by mouth once daily predniSONE (DELTASONE) 20 mg tablet Take 2 tablets by mouth once daily for 5 days. 10 tablet 0 03/15/2023 03/20/2023 Active Comment on above: Take 2 tablets by mo [facility] once daily for 5 days. sucralfate 1000 mg oral tablet (7 sources) Aluminum Complex Start: 7 End: 4 take 1 tablet by mouth 30 minutes before bedtime sucralfate (CARAFATE) 1 gram tablet TAKE 1 PO 30 MINUTES BEFORE MEALS AND AT BEDTIME. 120 tablet 3 10/27/2017 08/14/2024 Discontinued Comment on above: TAKE 1 PO 30 MINUTES BEFORE MEALS AND AT BEDTIME. traMADol hydrochloride 50 mg oral tablet (7 sources) Opioid Agonist Start: 8 End: 4 traMADol (ULTRAM) 50 mg tablet Indications: Chronic pain syndrome Take 1 tablet by mouth as needed for Pain for up to 7 days. 28 tablet 12/13/2017 08/14/2024 Discontinued Comment on above: Take 1 tablet by flor as needed for Pain for up to 7 days. Completed/Discontinued Medications Medication Drug Class(es) Dates Sig (Normalized) Sig (Original) acetaminophen 325 mg / oxyCODONE hydrochloride 5 mg oral tablet (2 sources) Opioid Agonist Start: 06-24-2020 End: 07-01-2020 Oxycodone-Acetaminoph en 1 TABLET tablet Discontinued 1 - 2 {tbl} PO EVERY 6 HOURS NEEDED as needed for Pain 15 7 0 June 24, 2020 June 30, 2020 12:00am July 01, 2020 12:02am Other acute postprocedural pain Start: 06-24-2020 End: 07-01-2020 take 1 tablet by mouth every six hours as needed Oxycodone-Acetaminophen Discontinued 1 - 2 TABLET PO EVERY 6 HOURS NEEDED 15 7 June 24, 2020 July 01, 2020 12:02am lidocaine 0.05 mg/mg medicated patch (1 source) Antiarrhythmic, Amide Local Anesthetic Start: 02-05-2022 End: 02-10-2022 lidocaine (LIDODERM) 5 % Indications: Acute pain of right shoulder Apply 2 Patches as directed every 24 hours for 5 days. Remove old patch prior to placing new patch. Location: shoulder and collarbone 10 Patch 02/05/2022 02/10/2022 metroNIDAZOLE 500 mg oral tablet (4 sources) Nitroimidazole Antimicrobial Start: 06-13-2020 End: 07-10-2020 take 1 tablet by mouth twice daily Metronidazole 500 MG tablet Discontinued 500 mg PO TWICE A DAY June 13, 2020 12:00am July 10, 2020 9:22am bacterial infection Start: 05-15-2020 End: 06-11-2020 take 1 tablet by mouth twice daily Metronidazole (Flagyl) 500 mg tablet Discontinued 500 mg PO TWICE A DAY 14 0 May 15, 2020 12:00am June 11, 2020 1:05pm Vr-Kc-Fbhf-Fa-Ca Carb-Vit K (1 source) Start: 06-13-2020 End: 08-04-2020 Fq-Jh-Mupg-Fa-Ca Carb-Vit K Discontinued 1 EACH PO DAILY June 13, 2020 12:00am August 04, 2020 10:51am Ui-Vm-Tfyb-Fa-Ca Carb-Vit K 1 EACH tablet (1 source) Start: 06-13-2020 End: 08-04-2020 take 1 tablet by mouth once daily Bg-Hd-Qfgk-Fa-Ca Carb-Vit K 1 EACH tablet Discontinued 1 NMA PO DAILY June 13, 2020 12:00am August 04, 2020 10:51am supplement naproxen 500 mg oral tablet (6 sources) Nonsteroidal Anti-inflammatory Drug Start: 02-05-2022 End: 03-07-2022 take 1 tablet by mouth twice daily as needed for pain naproxen (NAPROSYN) 500 mg tablet Indications: Acute pain of right shoulder Take 1 tablet by mouth twice daily as needed (for pain/inflammation). Take with food. 60 tablet 02/05/2022 03/07/2022 Start: 06-24-2020 End: 07-10-2020 take 250-500 mg by mouth every eight hours as needed for pain Naproxen 250 MG tablet Discontinued 250 - 500 mg PO EVERY 8 HOURS NEEDED as needed for MILD PAIN 30 June 24, 2020 12:00am July 10, 2020 9:22am Start: 05-07-2020 End: 06-11-2020 take 1 tablet by mouth twice daily Naproxen 500 MG tablet Discontinued 500 mg PO TWICE A DAY May 07, 2020 12:00am June 11, 2020 1:06pm Comment on above: Take 1 tablet by flor twice daily as needed (for pain/inflammation). Take with food. Problems Active Problems Problem Classification Problem Date Documented Date Episodic/Chronic Anxiety disorders (12 sources) Panic disorder without agoraphobia; Translations: [Panic disorder [episodic paroxysmal anxiety]] Onset: 07-17-2015 07-17-2015 Chronic Cancer of cervix (4 sources) Carcinoma in situ of uterine cervix; Translations: [Carcinoma in situ of cervix, unspecified] 10-09-2020 Episodic Comment on above: Paps x20 years Crushing injury or internal injury (2 sources) Crush injury of left foot; Translations: [Crushing injury of left foot, initial encounter] 06-27-2023 Episodic Disorders of teeth and jaw (1 source) Infection of tooth; Translations: [Periapical abscess without sinus] 08-03-2024 Episodic Genitourinary symptoms and ill-defined conditions (1 source) Scalding pain on urination ; Translations: [Dysuria] 08-03-2024 Episodic Immunizations and screening for infectious disease (2 sources) Exposure to sexually transmissible disorder; Translations: [Contact with and (suspected) exposure to infections with a predominantly sexual mode of transmission] Onset: 02-25-2025 02-25-2025 Episodic Mood disorders (12 sources) Recurrent major depression in partial remission; Translations: [Major depressive disorder, recurrent, in partial remission] Onset: 07-17-2015 07-17-2015 Chronic Mycoses (1 source) Superficial mycosis, unspecified; Translations: [Fungal rash of torso] Onset: 02-20-2025 Episodic Open wounds of extremities (1 source) Laceration of nail bed of finger ; Translations: [Laceration without foreign body of unspecified finger with damage to nail, initial encounter] 09-21-2024 Episodic Other female genital disorders (14 sources) Abnormal uterine bleeding; Translations: [Abnormal uterine and vaginal bleeding, unspecified] Onset: 09-07-2016 09-07-2016 Chronic Comment on above: failed ocp in past. recommend TVHBS Other injuries and conditions due to external causes (1 source) Unspecified injury of right wrist, hand and finger(s), initial encounter; Translations: [Unspecified injury of right wrist, hand and finger(s), initial encounter] Onset: 05-02-2025 Episodic Other lower respiratory disease (1 source) Wheezing; Translations: [Wheezing] 08-14-2024 Episodic Other non-traumatic joint disorders (1 source) Pain in right shoulder; Translations: [Pain in joint, shoulder region] 02-05-2022 Episodic Other screening for suspected conditions (not mental disorders or infectious disease) (2 sources) Encounter for screening for malignant neoplasm of cervix; Translations: [Encounter for screening for nutritional disorder] Onset: 02-20-2025 Episodic Pancreatic disorders (not diabetes) (2 sources) Acute pancreatitis; Translations: [Acute pancreatitis without necrosis or infection, unspecified] 11-13-2013 Episodic Residual codes; unclassified (2 sources) Positive measurement finding; Translations: [Positive test for human papillomavirus (HPV)] 05-29-2020 Episodic Residual codes; unclassified (2 sources) FH: Thyroid disorder; Translations: [Family history of other endocrine, nutritional and metabolic diseases] 03-07-2025 Episodic Residual codes; unclassified (1 source) Family history of other endocrine, nutritional and metabolic diseases; Translations: [Family history of thyroid disease] Onset: 02-20-2025 Episodic Sprains and strains (2 sources) Strain of neck muscle; Translations: [Strain of muscle, fascia and tendon at neck level, initial encounter] Episodic Substance-related disorders (2 sources) Tobacco user; Translations: [Nicotine dependence, unspecified, uncomplicated] 11-13-2013 Chronic Thyroid disorders (3 sources) Garcia thyroiditis; Translations: [Autoimmune thyroiditis] Onset: 05-02-2025 05-02-2025 Chronic Viral infection (2 sources) Herpes simplex type 2 infection; Translations: [Herpesviral infection, unspecified] 02-25-2025 Episodic Comment on above: rare outbreak:last 2 022 Past or Other Problems Problem Classification Problem Date Documented Da te Episodic/Chronic Abdominal pain (16 sources) Indigestion; Translations: [Epigastric pain] Onset: 10-28-2017 10-28-2017 Episodic Comment on above: plan TV BS Chronic obstructive pulmonary disease and bronchiectasis (4 sources) Bronchitis; Translations: [Bronchitis, not specified as acute or chronic] Onset: 08-14-2024 08-03-2024 Episodic Hemorrhage during ; abruptio placenta; placenta previa (20 sources) Subchorionic hematoma; Translations: [Other antepartum hemorrhage, unspecified trimester] Onset: 04-05-2013 Resolved: 07-03-2014 10-26-2021 Episodic Other complications of (10 sources) H/O: premature delivery; Translations: [Supervision of other high risk pregnancies, unspecified trimester] Onset: 03-27-2013 Resolved: 07-03-2014 10-26-2021 Episodic Other complications of (10 sources) Maternal tobacco use in ; Translations: [Smoking (tobacco) complicating , unspecified trimester] Onset: 03-27-2013 Resolved: 07-03-2014 10-26-2021 Episodic Other complications of (10 sources) H/O: miscarriage; Translations: [Supervision of with other poor reproductive or obstetric history, unspecified trimester] Onset: 09-20-2013 Resolved: 07-03-2014 10-26-2021 Episodic Other gastrointestinal disorders (1 source) Alteration in bowel elimination; Translations: [Change in bowel habit] Onset: 10-28-2017 10-28-2017 Episodic Other gastrointestinal disorders (11 sources) Altered bowel function; Translations: [Change in bowel habit] Onset: 10-28-2017 10-28-2017 Episodic Other gastrointestinal disorders (10 sources) History of pancreatitis; Translations: [Personal history of other diseases of the digestive system] Onset: 03-27-2013 Resolved: 07-03-2014 10-26-2021 Episodic Other infections; including parasitic (10 sources) History of sexually transmitted disease; Translations: [Personal history of other infectious and parasitic diseases] Onset: 03-27-2013 Resolved: 07-03-2014 10-26-2021 Episodic Results Test Name Value Interpretation Reference Range Facility [facility] 05-06-2025 [facility] Tele[facility] (EMQ) -- ASHLEY BROWN ([id number]) 1990 F IPA Date Time Provider Department 05/06/25 ROMULO KEMP EMQ During your visit today, we recorded the following information about you: Carri Brown 05/06/2025 4:10 PM Signed Lvm for pt stating that she has a referral to see Endocrinology. Provided the number to call and schedule when ready. Will send letter in mail. Allergies As of Date: 05/06/2025 Noted Allergy Reaction SEASONAL ALLERGIES 03/27/2013 14 - Other: See Comments Comments: RUNNY NOSE, ITCHY EYES TREE NUTS 10/27/2017 4 - Hives Date Reviewed: 02/20/2025 Reviewed by: Martha Castaneda MA - Fully Assessed Reason for Visit: Appointment [[id number]] Prescriptions as of 05/06/2025 - albuterol HFA (PROVENTIL HFA, VENTOLIN HFA) 90 mcg/actuation inhaler Inhale 2 Puffs as instructed every 4 hours as needed. - lorazepam (ATIVAN ORAL) Take by mouth. - acetaminophen (TYLENOL) 325 mg tablet Take 650 mg by mouth every 6 hours as needed. Problem List As Of Date 05/06/2025 Noted Resolved History of delivery, currently *03/27/2013 07/03/2014 Tobacco use in [O99.330] 03/27/2013 07/03/2014 History of herpes genitalis [Z86.19] 03/27/2013 07/03/2014 History of pancreatitis [Z87.19] 03/27/2013 07/03/2014 Subchorionic hemorrhage [O46.8X9] 04/05/2013 07/03/2014 History of miscarriage, currently [O09*09/20/2013 07/03/2014 Low-lying placenta [O44.40] 02/18/2014 07/03/2014 Recurrent major depression in partial remission*07/17/2015 Panic disorder without agoraphobia [F41.0] 07/17/2015 Abnormal uterine bleeding [N93.9] 09/07/2016 Altered bowel habits [R19.4] 10/28/2017 Dyspepsia [R10.13] 10/28/2017 Encounter Status:Closed by CARRI BROWN on 05/06/25 Normal [facility] Endocrinology Visit Reporton 05-02-2025 Endocrinology Visit Report [facility] [address] [place] [address] OFFICE VISIT Date of Service: 05/02/25 MR#: [id number] Acct: [id number] Name: ASHLEY BROWN Rep #: [id number] : 1990 Provider: Aga Ahmadi Age/Sex: 34/F Location[place] [facility] [place] [facility] [place] Status: Signed Intake Vital Signs 02/25/25 13:36 05/02/25 10:29 Height 5 ft 5 in 5 ft 5 in Weight: 109 lb 110 lb BMI 18.1 18.3 BP 127/78 H 127/88 H Blood Pressure Location Lt brachial Position Sitting Pulse 75 Pulse Source Monitor Pulse Oximetry (%) 98 Oxygen Delivery Method room air Intake Visit Reasons: Thyroid Chief Complaint: Thyroid Allergies Seasonal Allergies: Uncoded Allergy (Mild, Verified 05/02/25 10:34) Other nut - unspecified Allergy (Verified 05/02/25 10:34) Hives Medications ???Medication ???Instructions ???Recorded ???Confirmed ???Type acetaminophen 325 mg tablet 325 mg PO ONCE PRN Headache 05/02/25 History (Tylenol) lorazepam 1 mg tablet 1 mg PO PRN PRN Anxiety 10/09/20 0 05/02/25 History fluoxetine 10 mg capsule 10 mg PO QDAY #90 caps 05/02/25 Rx PFSH Medical History (Updated 05/02/25 @ 15:[address] Dustin Flowers MD) Joint laxity Dysautonomia Garcia's thyroiditis EDNA III (cervical intraepithelial neoplasia III) Surgical History Hx of bilateral salpingectomy History of total vaginal hysterectomy (TVH) History of oral surgery History of dilation and curettage History of cholecystectomy Family History Father Heart disease Alcoholism Mother Diabetes Bladder cancer, Onset Age: 60 COPD (chronic obstructive pulmonary disease) Arthritis Cancer Uterine cancer Thyroid disorder Respiratory disease Grandfather Heart disease Arthritis Cancer Uncle Skin cancer Social History household members: spouse number of children: 2 current occupational status: employed current occupation: [employer] history of recent travel: No sexually active: Yes Smoking Status: Current every day smoker tobacco type: cigarettes alcohol intake: current alcohol intake frequency: holidays/special occasions only substance use type: does not use caffeine: Yes what type of physical activity do you participate in: none seatbelt use: always do you feel safe at home: Yes additional social history: soon to be . Has boyfriend - Female Reproductive History Menstrual Ab spontaneous: 1 HPI HPI Chief Complaint: Thyroid Details: ASHLEY BROWN, is a 34 F who presents to the office today for evaluation and management of thyroid disease. She has known Garcia's disease. In January, TSH 2.8 TPO 137 Her complaints include: tachycardia, palpitations, postural dizziness, body aches, being extra bendy (lax joints). She was on fluoxetine in the past, but it was stopped as a possible cause of her tachycardia. ROS Const Constitutional: Positive for fatigue and other (difficulty gaining weight); No weight change ENT ENT: Positive for dizziness/vertigo and balance problems Cardio Cardiology: Positive for palpitations and other (increased cardiac awareness); No chest pain at rest, chest pain with exertion or shortness of breath Musc Musculoskeletal: Positive for joint pain, myalgias and other (joint laxity) Neuro Neurology: Positive for lack of coordination and tremor(s) (Pt describes them as jitters. ) Psych Psychiatric: Positive for anxiety Skin Skin: No wounds Endo Endocrine: Positive for fatigue; No weight change Exam Const General: cooperative, healthy appearing, comfortable, no acute distress, well developed and not cushingoid Nutritional Appearance: underweight Orientation: alert, awake and oriented x3 HENMT Head: normal to inspection Ears: hearing grossly normal bilaterally Nose: external nose normal Mouth: oral mucosae normal Eyes General: appearance normal, both eyes and all related structures Alignment and Position: alignment normal Periorbital: periorbital findings normal Eyelids: eyelids normal Conjunctivae: conjunctivae normal Neck Neck: normal visual inspection Neck mass: No Thyroid: thyroid normal Lymphatic: no lymphadenopathy noted Chest Chest palpation inspection: normal inspection of the chest Resp Effort Inspection: normal respiratory effort, able to speak in complete sentences, symmetric chest movement, no audible wheezes and no cough Auscultation: Bilateral: Clear to Auscultation Cardio Rate: regular rate Rhythm: regular rhythm Pulses: posterior tibial pulses present Musc Other: Extreme joint laxity, prominent ears Skin General: no nelda (more content not included)... Normal [facility] 03[facility]07[facility]2025 [facility] -- ASHLEY BROWN ([id number]) 1990 F [facility] Date Time Provider Department 03/07/25 [facility] During your visit today, we recorded the following information about you: Aga Fong, ASTER 03/07/2025 1:48 PM Signed [facility] reports they received a referral from [facility] provider for patient to see Endo due to family history of thyroid disease. States if labs or documentation do not show a valid reason for referral for patient to see Endo they will not see patient. They are able to view patient's thyroid labs and state they are normal. Pt does not take medications that would qualify for referral to endo. Suad Nascimento APRN.[facility] 03/07/2025 1:52 PM Signed I agree with this and stated the same in the previous message. Please let patient know. Suad Nascimento APRN.Martha Ritchie MA 03/07/2025 3:37 PM Signed Sent to pt via message MIN Foster Sherrie, RN 03/11/2025 12:39 PM Signed Ivanna from [facility] calling and requesting pt's recent OV note be sent to them for further review to re-determine if Dr. Flowers will see pt or not. Faxed as requested. ASTER Neri M Robin, RN 03/11/2025 3:02 PM Signed Faxed recent ov notes to [facility]- states they only received 1 page of the last fax. . Allergies As of Date: 03/07/2025 Noted Allergy Reaction SEASONAL ALLERGIES 03/27/2013 14 - Other: See Comments Comments: RUNNY NOSE, ITCHY EYES TREE NUTS 10/27/2017 4 - Hives Date Reviewed: 02/20/2025 Reviewed by: Martha Castaneda MA - Fully Assessed Reason for Visit: Referral to Endo [Other] Prescriptions as of 03/11/2025 - albuterol HFA (PROVENTIL HFA, VENTOLIN HFA) 90 mcg/actuation inhaler Inhale 2 Puffs as instructed every 4 hours as needed. - lorazepam (ATIVAN ORAL) Take by mouth. - acetaminophen (TYLENOL) 325 mg tablet Take 650 mg by mouth every 6 hours as needed. Problem List As Of Date 03/07/2025 Noted Resolved History of delivery, currently *03/27/2013 07/03/2014 Tobacco use in [O99.330] 03/27/2013 07/03/2014 History of herpes genitalis [Z86.19] 03/27/2013 07/03/2014 History of pancreatitis [Z87.19] 03/27/2013 07/03/2014 Subchorionic hemorrhage [O46.8X9] 04/05/2013 07/03/2014 History of miscarriage, currently [O09*09/20/2013 07/03/2014 Low-lying placenta [O44.40] 02/18/2014 07/03/2014 Recurrent major depression in partial remission*07/17/2015 Panic disorder without agoraphobia [F41.0] 07/17/2015 Abnormal uterine bleeding [N93.9] 09/07/2016 Altered bowel habits [R19.4] 10/28/2017 Dyspepsia [R10.13] 10/28/2017 Encounter Status:Closed by MARTHA CASTANEDA on 03/07/25 [facility] 03-06-2025 [facility] ([facility] -- ASHLEY BROWN ([id number]) 1990 F [facility] Date Time Provider Department 03/06/25 [facility] During your visit today, we recorded the following information about you: Margaret Peraza 03/06/2025 1:47 PM Signed Patient is requesting a referral to Endocrinology to see Dr. Flowers after her thyroid labs came back high. Please review and advise patient. Margaret Peraza March 06, 2025 1:46 PM Martha Castaneda MA 03/06/2025 6:16 PM Signed See thyroid labs attached-- Scan on 03/06/2025 8:35 AM by Provider, External, PAFeleciaC: Miscellaneous Lab Suad Nascimento APRN.DAVID 03/07/2025 7:03 AM Signed I can send her a consult if she would like. However, the elevated labs are not significantly elevated, and all they show is that she is at increased risk to develop hypothyroidism. This is not indicative of a thyroid problem. Endocrinology consult placed, please fax per her request if she would still like to see Dr. Flowers. Suad Nascimento APRN.Martha Ritchie MA 03/07/2025 9:17 AM Signed Pt informed. Consult faxed per pt request Martha Castaneda MA Allergies As of Date: 03/06/2025 Noted Allergy Reaction SEASONAL ALLERGIES 03/27/2013 14 - Other: See Comments Comments: RUNNY NOSE, ITCHY EYES TREE NUTS 10/27/2017 4 - Hives Date Reviewed: 02/20/2025 Reviewed by: Martha Castaneda MA - Fully Assessed Reason for Visit: Referral to Endocrinology [Other] Primary Visit Diagnosis:Family history of thyroid disease [Z83.49] Order(s):CONSULT TO ENDOCRINOLOGY [9007] Order #: [id number]: 1 FUTURE Prescriptions as of 03/07/2025 - albuterol HFA (PROVENTIL HFA, VENTOLIN HFA) 90 mcg/actuation inhaler Inhale 2 Puffs as instructed every 4 hours as needed. - lorazepam (ATIVAN ORAL) Take by mouth. - acetaminophen (TYLENOL) 325 mg tablet Take 650 mg by mouth every 6 hours as needed. Problem List As Of Date 03/06/2025 Noted Resolved History of delivery, currently *03/27/2013 07/03/2014 Tobacco use in [O99.330] 03/27/2013 07/03/2014 History of herpes genitalis [Z86.19] 03/27/2013 07/03/2014 History of pancreatitis [Z87.19] 03/27/2013 07/03/2014 Subchorionic hemorrhage [O46.8X9] 04/05/2013 07/03/2014 History of miscarriage, currently [O09*09/20/2013 07/03/2014 Low-lying placenta [O44.40] 02/18/2014 07/03/2014 Recurrent major depression in partial remission*07/17/2015 Panic disorder without agoraphobia [F41.0] 07/17/2015 Abnormal uterine bleeding [N93.9] 09/07/2016 Altered bowel habits [R19.4] 10/28/2017 Dyspepsia [R10.13] 10/28/2017 Encounter Status:Closed by MARTHA CASTANEDA on 03/07/25 Normal [facility] Thyroglobulin w/Anti-TG ABon 03-05-2025 TG-ULICES 27 ng/mL Normal . [facility] Comment on above: Result Comment: This test was developed and its performance characteristics determined by [facility]. It has not been cleared or approved by the Food and Drug Administration. Reference Range: Pubertal Children and Adults: <40 According to the National Academy of Clinical Biochemistry, the reference interval for Thyroglobulin (TG) should be related to euthyroid patients and not for patients who underwent thyroidectomy. TG reference intervals for these patients depend on the residual mass of the thyroid tissue left after surgery. Establishing a post-operative baseline is recommended. The assay quantitation limit is 2.0 ng/mL. Performed By: #### L 501.63231, L501.9520, L506.0400, L3300.6750, L100.0500, L3300.6820 ####[facility] [address] [place], [address] Thyroid Antibodieson 025 TG AB 1.1 IU/mL High 0.0-0.9 [facility] Comment on above: Result Comment: Thyr oglobulin Antibody measured by [employer] Kaylene Methodology It should be noted that the presence of thyroglobulin antibodies may not be pathogenic nor diagnostic, especially at very low levels. The assay chemical instrumentation officer has found that four percent of individuals without evidence of thyroid disease or autoimmunity will have positive TgAb levels up to 4 IU/mL. Performed By: #### L 501.61431, L501.9520, L506.0400, L3300.6750, L100.0500, L3300.6820 ####[facility] [address] [facility] [place], [address] THYR PEROX AB 137 IU/mL High 0-34 [facility] Comment on above: Result Comment: Perf ormed at: CB - [facility] [address] [id number] Canine Deputy: Toby Reese PhD, Phone: [phone] Performed at: [facility] [place] [id number] Canine Deputy: Sonny Hughes MD, Phone: [phone] Performed By: #### L 501.00978, L501.9520, L506.0400, L3300.6750, L100.0500, L3300.6820 ####[facility] [address] [place], [address] Chlamydia/GC TORIE aptimaon CHLAMY,NUC ACID Negative Normal Negative [facility] Comment on above: Performed By: #### L 7000.1800, L7400.0280 #### [facility] [address] [place], [address] GC BY NUC ACID Negative Normal Negative [facility] Comment on above: Result Comment: Perf ormed at: =G - [facility] [address] [id number] Canine Deputy: Bebe Rodgers MD, Phone: [phone] Performed By: #### L 7000.1800, L7400.0280 #### [facility] [address] [place], [address] PAP IG HPV APTIMA 16/18,45on 02-28-2025 ADEQ Comment Normal . [facility] Comment on above: Order Comment: Speci men Comment: [id number] Specimen Comment: No. of containers..01 ThinPrep Vial Result Comment: Sati sfactory for evaluation. No endocervical cells are present. This is consistent with a history of hysterectomy. Performed By: #### L 7000.1800, L7400.0280 #### [facility] [address] [place], [address] COMM . Normal . [facility] Comment on above: Order Comment: Speci men Comment: [id number] Specimen Comment: No. of containers..01 ThinPrep Vial Performed By: #### L 7000.1800, L7400.0280 #### [facility] [address] [place], [address] COMMENT Comment Normal . [facility] Comment on above: Order Comment: Speci men Comment: [id number] Specimen Comment: No. of containers..01 ThinPrep Vial Result Comment: This liquid based ThinPrep(R) pap test was screened with the use of an image guided system. Performed By: #### L 7000.1800, L7400.0280 #### [facility] [address] [place], [address] DIAG Comment Normal . [facility] Comment on above: Order Comment: Speci men Comment: [id number] Specimen Comment: No. of containers..01 ThinPrep Vial Result Comment: NEGA TIVE FOR INTRAEPITHELIAL LESION OR MALIGNANCY. CELLULAR CHANGES ASSOCIATED WITH INFLAMMATION ARE PRESENT. Performed By: #### L 7000.1800, L7400.0280 #### [facility] [address] [place], [address] HPV APTIMA, HR Negative Normal Negative [facility] Comment on above: Order Comment: Speci men Comment: [id number] Specimen Comment: No. of containers..01 ThinPrep Vial Result Comment: This nucleic acid amplification test detects fourteen high- risk HPV types (16,18,31,33,35,39,45,51,52,56,58,59,66,68) without differentiation. Performed By: #### L 7000.1800, L7400.0280 #### [facility] [address] [place], [address] HPV Clarissa Rfx Comment Normal . [facility] Comment on above: Order Comment: Speci men Comment: [id number] Specimen Comment: No. of containers..01 ThinPrep Vial Result Comment: Crit eria not met, HPV Genotype not performed. Performed at: - [address] [id number] Canine Deputy: Bebe Rodgers MD, Phone: [phone] Performed at: = - [facility], [place] [id number] Canine Deputy: Bebe Rodgers MD, Phone: [phone] Performed By: #### L 7000.1800, L7400.0280 #### [facility] [address] [place], [place], [address] PAPSMR Comment Normal . [facility] Comment on above: Order Comment: Speci men Comment: [id number] Specimen Comment: No. of containers..01 ThinPrep Vial Result Comment: The Pap smear is a screening test designed to aid in the detection of premalignant and malignant conditions of the uterine cervix. It is not a diagnostic procedure and should not be used as the sole means of detecting cervical cancer. Both false-positive and false-negative reports do occur. Performed By: #### L 7000.1800, L7400.0280 #### [facility] [address] [place], [place], [id number] PERFORM Comment Normal . [facility] Comment on above: Order Comment: Speci men Comment: [id number] Specimen Comment: No. of containers..01 ThinPrep Vial Result Comment: Gómez Sanchez, Jewel Sorter (ASCP) Performed By: #### L 7000.1800, L7400.0280 #### [facility] [address] 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 [facility] Comment on above: Performed By: #### L 7000.7000, L509.8002, L3890.6006 ####[facility] [address] [place], [address] HCV QT RNA PCR Not detected Normal . [facility] Comment on above: Performed By: #### L 7000.7000, L509.8002, L3890.6006 ####[facility] [address] [place], [address] TEST INFO: Comment Normal . [facility] Comment on above: Result Comment: The quantitative range of this assay is 15 IU/mL to 100 million IU/mL. Performed at: [address], [place], [place] [id number] Canine Deputy: Cheryl De La Rosa MD, Phone: [phone] Performed By: #### L 7000.7000, L509.8002, L3890.6006 ####[facility] [address] [place], [address] Cervical or vaginal specimen microscopic examination by liquid based cytology (reportOrdered By: Kiara Bacon on 02-25-2025 Cytology report Cyto stain.thin prep Doc (Cvx/Vag) Comment . [facility] Comment on above: Criteria not met, HP V Genotype not performed.Performed at: [address] [id number] Director: Bebe Rodgers MD, Phone: [phone] at: =[address] [id number] Director: Bebe Rodgers MD, Phone: [phone] Cervical or vagninal specime n microscopic examination by cytology stain (reported asOrdered By: Kiara Bacon on 02-25-2025 Cytology report Cyto stain Doc (Cvx/Vag) Comment . [facility] Comment on above: The Pap smear is a s creening test designed to aid in thedetection of premalignant and malignant conditions of theuterine cervix. It is not a diagnostic procedure andshould not be used as the sole means of detecting cervicalcancer. Both false-positive and false-negative reports dooccur. Chlamydia trachomatis rRNA d etection by probe and target amplification methodOrdered By: Kiara Bacon on 02-25-2025 C. trachomatis rRNA TORIE+probe Ql (Unsp spec) Negative Negative [facility] Detection in cervical specim en of any of human papilloma virus (HPV) 16, 18, 31, 33,Ordered By: Kiara Bacon on 02-25-2025 HPV 16+18+31+33+35+39+45+ 51+52+56+58+59+66+68 DNA Probe+sig amp Ql (Cvx) Negative Negative [facility] Comment on above: This nucleic acid am plification test detects fourteen high- risk HPV types (16,18,31,33,35,39,45,51,52,56,58,59,66,68)without differentiation. HIVon 02-25-2025 HIV Non-Reactive Normal Nonreactive [facility] Comment on above: Result Comment: Non- Reactive Reactive Repeatedly reactive samples must be confirmed according to CDC recommended confirmatory algorithms. The subresults for either HIVAG or AHIV can be used as an aid in the selection of the confirmation algorithm for reactive samples. [facility] Order the HIV antibody detection and differentiation: lc#[id number] Performed By: #### L 7000.7000, L509.8002, L3890.6006 ####[facility] [address] [place], [place], [address] Laboratory - CytologyOrdered By: Kiara Bacon on 02-25-2025 Jewel Sorter Cyto stain Nom (Cvx/Vag) [ID] Comment . [facility] Comment on above: Daya Weinberg gist (ASCP) Laboratory - Miscellaneous t estsOrdered By: Kiara Bacon on 02-25-2025 Service comment (Unsp spec) [Interp] . . [facility] Neisseria gonorrhoeae nuclei c acid detection by amplified probe techniqueOrdered By: Kiara Bacon on 02-25-2025 N. gonorrhoeae DNA TORIE+probe Ql (Unsp spec) Negative Negative [facility] Comment on above: Performed at: [address] [id number] Director: Bebe Rodgers MD, Phone: [phone] No Panel InformationOrdered By: Kiara Bacon on 02-25-2025 Pap Smear Specimen Adequacy Comment . [facility] Comment on above: Satisfactory for michelle luation. No endocervical cells are present. This isconsistent with a history of hysterectomy. POC Trichomonas (Rapid) Negative [facility] Addendum Document Comment . [facility] Comment on above: The quantitative ran ge of this assay is 15 IU/mL to 100million IU/mL.Performed at: [address] [id number] Director: Cheryl De La Rosa MD, Phone: [phone] HIV (1&2) Antibody Non-Reactive Nonreactive [facility] Comment on above: Non-ReactiveReactive Repeatedly reactive samples must be confirmed according to CDC recommended confirmatory algorithms. The subresults for either HIVAG or AHIV can be used as an aid in the selection of the confirmation algorithm for reactive samples.Send out specimens with Reactive results to [facility] for confirmation.Order the HIV antibody detection and differentiation: #[id number] Bed Setter Office Visit Reporton 02-25-2025 Bed Setter Office Visit Report [facility] [address], [address] [place] [address] OFFICE VISIT Date of Service: 02/25/25 MR#: [id number] Acct: [id number] Name: ASHLEY BROWN Rep #: [id number] : 1990 Provider: EMIR dickson Age/Sex: 34/F Location: [facility] Status: Signed Intake Vital Signs 09/13/24 20:00 02/25/25 13:36 Height 5 ft 5 in 5 ft 5 in Weight: 109 lb BMI 18.1 BP 127/78 H 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: No Is patient in pain?: No Allergies Seasonal Allergies: Uncoded Allergy (Mild, Verified 02/25/25 13:55) Other nut - unspecified Allergy (Verified 02/25/25 13:55) Hives Medications ???Medication ???Instructions ???Recorded ???Confirmed ???Type acetaminophen 325 mg tablet 325 mg PO ONCE PRN Headache 02/25/25 History (Tylenol) lorazepam 1 mg tablet 1 mg PO PRN PRN Anxiety 10/09/20 0 02/25/25 History Is last menstrual period known: No Post menopausal: No Patient : No : No PFSH Medical History (Updated 02/25/25 @ 14:02 by Kiara Bacon NP, ANNABEL-C) EDNA III (cervical intraepithelial neoplasia III) Surgical History Hx of bilateral salpingectomy History of total vaginal hysterectomy (TVH) History of oral surgery History of dilation and curettage History of cholecystectomy Family History (Updated 02/25/25 @ 13:43 by Kiara Powell) Father Heart disease Mother Diabetes Bladder cancer, Onset Age: 60 COPD (chronic obstructive pulmonary disease) Grandfather Heart disease Uncle Skin cancer Social History (Updated 02/25/25 @ 13:44 by Kiara Powell) household members: spouse number of children: 2 current occupational status: employed current occupation: [employer] history of recent travel: No sexually active: Yes Smoking Status: Current every day smoker tobacco type: cigarettes alcohol intake: current alcohol intake frequency: holidays/special occasions only substance use type: does not use caffeine: Yes what type of physical activity do you participate in: none seatbelt use: always do you feel safe at home: Yes additional social history: soon to be . Has boyfriend - History 3 Elective abortions Hx Para 2 Spontaneous abortions 1 Hx # Term Pregnancies Ectopic pregnancies Hx # Pregnancies Multiple births # of living children 2 Past Pregnancies Del. Date Name GA/Weeks Outcome Route Bth Weight Infant Gen Labor Lgth Anesthesia Del Locatn Provider FOB 12/04/10 Se[facility]ity 34 live - Female 05/02/14 Taran 38 live - full term Male HPI Encounter for routine gynecological examination Details: ASHLEY BROWN is a 34 year old who presents for annual exam. Last exam 2019. New sexual partner. Last PAP: EDNA 3 at time of hysterectomy, paps yearly X 20 yr from 2020 History of abnormal PAP: yes Last mammogram: age 39 Other preventative health care screenings: [facility] Female Reproductive History Questions: sexually active: Yes, dyspareunia: No and PCB: No ROS Const Constitutional: Denies fatigue, weight gain or weight loss Cardio Card: Denies chest pain Resp Resp: Denies cough or dyspnea on exertion GI GI: Denies abdominal pain, bloating, change in stool character, constipation or vomiting : Reports as per HPI; Denies difficulty voiding, pelvic pain, urinary frequency, urinary incontinence, urinary urgency, vaginal discharge or vaginal pruritus Exam Const General: cooperative, healthy appearing, no acute distress and well developed Orientation: alert, oriented to person and oriented to place HENMT Head: normal to inspection Neck Neck: normal visual inspection Thyroid: thyroid normal Lymphatic: no lymphadenopathy noted Chest Breast inspection: normal inspection of the breasts and normal inspection of the axillae Breast palpation: normal palpation of the breasts, normal palpation of the axillae and no axillary lymphadenopathy Resp Effort Inspection: normal respiratory effort GI Palpation: soft, no masses and nontender Rectal Exam: deferred External Female Exam: normal external appearance and normal appearance of the urethra Urethra: normal appearance of the urethra and normal palpation Speculum Exam - Vagina: normal appearance of the vagina and normal vaginal discharge Speculum Exam - Cervix: absent Bimanual Exam- Vagina Uterus: normal bimanual exam and uterus absent Bimanual Exam- Adnexa, other: normal adnexae, no masses, normal and non-tender Pelvic Support: normal Neuro General: patient alert and patient oriented x3 Psych Affect: normal affect Coding Level of Care Code Off vis,new,prev 18-39yrs Diagnoses Encounter for obstetrician and gynaecologist (more content not included)... Normal [facility] Serum or plasma hepatitis C virus RNA measurement by probe and target amplification mOrdered By: Kiara Bacon on 02-25-2025 HCV RNA TORIE+probe Qn Not detected . [facility] Syphilis Antibodieson 2024 Syphilis Abs Non-Reactive Normal Nonreactive [facility] Comment on above: Performed By: #### L 7000.7000, L509.8002, L3890.6006 #### [facility] [address] [place], [address] CBC-Complete Blood Cnt No Di ffon 02-22-2025 Erythrocyte distribution width (RBC) [Ratio] 12.2 % Normal 11.6-14.6 [facility] Comment on above: Performed By: #### L 501.58315, L501.9520, L506.0400, L3300.6750, L100.0500, L3300.6820 ####[facility] [address] [place], [address] Hematocrit (Bld) [Volume fraction] 41.8 % Normal 37-47 [facility] Comment on above: Performed By: #### L 501.81636, L501.9520, L506.0400, L3300.6750, L100.0500, L3300.6820 ####[facility] [address] [place], [address] Hemoglobin (Bld) [Mass/Vol] 13.8 g/dL Normal 12.0-15.0 [facility] Comment on above: Performed By: #### L 501.84339, L501.9520, L506.0400, L3300.6750, L100.0500, L3300.6820 ####[facility] [address] [place], [address] MCH (RBC) [Entitic mass] 30.6 pg Normal 27.0-32.0 [facility] Comment on above: Performed By: #### L 501.38467, L501.9520, L506.0400, L3300.6750, L100.0500, L3300.6820 ####[facility] [address] [place], [address] MCHC (RBC) [Mass/Vol] 33.0 g/dL Normal 32-36 [facility] Comment on above: Performed By: #### L 501.54796, L501.9520, L506.0400, L3300.6750, L100.0500, L3300.6820 ####[facility] [address] [place], [address] MCV (RBC) [Entitic vol] 92.7 fL Normal 81-99 [facility] Comment on above: Performed By: #### L 501.42312, L501.9520, L506.0400, L3300.6750, L100.0500, L3300.6820 ####[facility] [address] [place], [address] Platelet mean volume (Bld) [Entitic vol] 11.1 fL Normal 6.2-12.0 [facility] Comment on above: Performed By: #### L 501.83676, L501.9520, L506.0400, L3300.6750, L100.0500, L3300.6820 ####[facility] [address] [place], [address] Platelets (Bld) [#/Vol] 272 10*3/uL Normal 150-450 [facility] Comment on above: Performed By: #### L 501.59317, L501.9520, L506.0400, L3300.6750, L100.0500, L3300.6820 ####[facility] [address] [place], [address] RBC (Bld) [#/Vol] 4.51 10*6/uL Normal 4.2-5.4 [facility] Comment on above: Performed By: #### L 501.60266, L501.9520, L506.0400, L3300.6750, L100.0500, L3300.6820 ####[facility] [address] [place], [address] RDW SD 41.4 fl Normal 35.1-43.9 [facility] Comment on above: Performed By: #### L 501.99597, L501.9520, L506.0400, L3300.6750, L100.0500, L3300.6820 ####[facility] [address] [place], [address] WBC (Bld) [#/Vol] 12.0 10*3/uL High 4.4-11.0 [facility] Comment on above: Performed By: #### L 501.70475, L501.9520, L506.0400, L3300.6750, L100.0500, L3300.6820 ####[facility] [address] [place], [address] Erythrocyte distribution wid th ratioOrdered By: Suad Nascimento on 02-22-2025 Erythrocyte distribution width (RBC) [Ratio] 12.2 % 11.6-14.6 [facility] Erythrocyte distribution wid th standard deviationOrdered By: Suad Nascimento on 02-22-2025 Erythrocyte distribution width (RBC) [Ratio] 41.4 fl 35.1-43.9 [facility] Free T3on 02-22-2025 Free T3 [Mass/Vol] 3.2 pg/mL Normal 2.18-3.98 [facility] Comment on above: Performed By: #### L 501.66983, L501.9520, L506.0400, L3300.6750, L100.0500, L3300.6820 ####[facility] [address] [place], [address] Free G7Wkmjche By: Suad willson on 02-22-2025 Free T3 [Mass/Vol] 3.2 pg/mL 2.18-3.98 [facility] Hematocrit Auto (Bld) [Volum e fraction]Ordered By: Suad Nascimento on 02-22-2025 Hematocrit (Bld) [Volume fraction] 41.8 % 37-47 [facility] Hemoglobin measurementOrdere d By: Suad Nascimento on 02-22-2025 Hemoglobin (Bld) [Mass/Vol] 13.8 g/dL 12.0-15.0 [facility] MCV (mean corpuscular volume ) determinationOrdered By: Suad Nascimento on 02-22-2025 MCV (RBC) [Entitic vol] 92.7 fL 81-99 [facility] Mean corpuscular hemoglobin (MCH) determinationOrdered By: Suad Nascimento on 02-22-2025 MCH (RBC) [Entitic mass] 30.6 pg 27.0-32.0 [facility] Mean corpuscular hemoglobin concentration (MCHC) determinationOrdered By: Suad Nascimento on 02-22-2025 MCHC (RBC) [Mass/Vol] 33.0 g/dL 32-36 [facility] Mean platelet volume determi nationOrdered By: Suad Nascimento on 02-22-2025 Platelet mean volume (Bld) [Entitic vol] 11.1 fL 6.2-12.0 [facility] Platelet countOrdered By: Griselda gilbertkazaki Nascimento on 02-22-2025 Platelets (Bld) [#/Vol] 272 10*3/uL 150-450 [facility] RBC Auto (Bld) [#/Vol]Ordere d By: Suad Nascimento on 02-22-2025 RBC (Bld) [#/Vol] 4.51 10*6/uL 4.2-5.4 [facility] Serum or plasma thyroperoxid ase antibody assay (units/volume)Ordered By: Suad Nascimento on 02-22-2025 TPO Ab Qn 137 [IU]/mL High 0-34 [facility] Comment on above: Performed at: [employer] [address] [id number] Director: Toby Reese PhD, Phone: [phone] at: [facility] [employer] [id number] [place] [id number] Director: Sonny Hughes MD, Phone: [phone] T4 Free Directon 02-22-2025 T4 FREE DIRECT 1.10 ng/dL Normal 0.76-1.46 [facility] Comment on above: Performed By: #### L 501.71639, L501.9520, L506.0400, L3300.3250, L100.0500, L3300.6820 ####[facility] [address] [place], [place], [id number] T4 freeOrdered By: Suad willson on 02-22-2025 Free T4 [Mass/Vol] 1.10 ng/dL 0.76-1.46 [facility] TSH DL <= 0.005 mIU/L QnOrde red By: Suad Nascimento on 02-22-2025 TSH Qn 2.850 uIU/mL 0.300-4.200 [facility] Thyroglobulin measurement by radioimmunoassay (ULICES)Ordered By: Suad Nascimento on 02-22-2025 Thyroglobulin Ab ULICES Qn (S) 27 ng/mL . [facility] Comment on above: This test was develo ped and its performance characteristicsdetermined by [facility]. It has not been cleared or approvedby the Food and Drug Administration.Reference Range:Pubertal Childrenand Adults: <40According to the National Academy of Clinical Biochemistry,the reference interval for Thyroglobulin (TG) should berelated to euthyroid patients and not for patients whounderwent thyroidectomy. TG reference intervals for thesepatients depend on the residual mass of the thyroid tissueleft after surgery. Establishing a post-operative baselineis recommended. The assay quantitation limit is 2.0 ng/mL. Thyroid Stim Hormone (TSH)on 02-22-2025 TSH 2.850 uIU/mL Normal 0.300-4.200 [facility] Comment on above: Performed By: #### L 501.03601, L501.9520, L506.0400, L3300.6750, L100.0500, L3300.6820 ####[facility] [address] [place], [address] White blood cell (WBC) count Ordered By: Suad Nascimento on 02-22-2025 WBC (Bld) [#/Vol] 12.0 10*3/uL High 4.4-11.0 [facility] CNOVon 02-20-2025 [facility] ASHLEY [facility]OWN ([id number]) 1990 F Date Time Provider Department 02/20/25 1:00 PM SUAD NASCIMENTO During your visit today, we recorded the following information about you: Pulse Blood pressure Weight Height 96/minute 111/75 49.8 kg 1.7 m Suad Nascimento APRN.CNP 02/20/2025 2:59 PM Signed Chief Complaint Patient presents with: Insurance Physical: Rash on chest and left thigh x 6 months, unsteady, tunnel vision, heart palp, flushed with activity x 1 month HPI Ashley Brown is a 34 year old female who presents here today for Above Complaints.. Reports a woozy feeling- Pt reports feeling woozy and feels a warm/cool sensation throughout her whole body similar to the feeling of having a glass of wine. Her skin on her chest and cheeks also becomes red which this happens. This is triggered by walking fast for short distances. Siting down and resting helps. This started a month ago and has been persistent. Denies SOB, chest pain, palpitations, vertigo, syncope. Pt is concerned for her thyroid d/t strong family history of thyroid disease. Skin rash- Couple months ago she noticed small flat patches on her chest. They get red when taking a hot shower. Does not itch or cause pain or discomfort in any way, not spreading from what she can tell. Past medical history, appointments, medications, allergies reviewed. Previous Medical History PAST MEDICAL HISTORY Diagnosis Date Abnormal Pap smear of cervix FRACTURE WRIST AGE 6 Herpes simplex without mention of complication PANCREATITIS 2010 Recurrent major depression in partial remission (HCC) 07/17/2015 ? hypomanic Previous Surgical History PAST SURGICAL HISTORY Procedure Laterality Date COLONOSCOPY FLX DX W/COLLJ SPEC WHEN PFRMD 11/22/2017 Colonoscopy DILATION AND CURETTAGE DXAND/THER NONOBSTETRIC 2013 Dilation AND curettage ESOPHAGOGASTRODUODENOSCOPY TRANSORAL DIAGNOSTIC 11/22/2017 EGD LAPAROSCOPY SURG CHOLECYSTECTOMY 2011 Cholecystectomy, lap Family History FAMILY HISTORY Problem Relation Age of Onset Diabetes Mother COPD Mother Thyroid Mother Lipids Father Heart Father Patient Allergies ALLERGIES Allergen Reactions Seasonal Allergies Other: See Comments RUNNY NOSE, ITCHY EYES Tree Nuts Hives Current Medications Current Outpatient Medications on File Prior to Visit Medication Sig albuterol HFA (PROVENTIL HFA, VENTOLIN HFA) 90 mcg/actuation inhaler Inhale 2 Puffs as instructed every 4 hours as needed. lorazepam (ATIVAN ORAL) Take by mouth. hyoscyamine SR (SYMAX-SR) 0.375 mg 12 hr tablet Take 1 tablet by mouth twice daily. (Patient not taking: Reported on 04/20/2019 ) acetaminophen (TYLENOL) 325 mg tablet Take 650 mg by mouth every 6 hours as needed. No current facility-administered medications on file prior to visit. Social History Social History Tobacco Use Smoking status: Every Day Current packs/day: 0.50 Average packs/day: 0.5 packs/day for 9.0 years (4.5 ttl pk-yrs) Types: Cigarettes Smokeless tobacco: Never Vaping Use Vaping status: Never Used Substance Use Topics Alcohol use: Yes Comment: Rarely Drug use: No Review of Symptoms REVIEW OF SYSTEMS See HPI, otherwise negative EXAM: [facility] 05/01/2020 General Appearance: Well appearing, alert, in no acute distress, well-hydrated, well nourished.. Skin: Positives: small, round flat pink-colored patches scattered across chest- approximately 0.5cm in diameter Ears: External ears normal, canals clear. Oropharynx: Lips, mucosa, and tongue normal, teeth and gums normal, oropharynx normal. Neck: Negative findings: no asymmetry, masses, or scars, Positive findings: thyroid: normal to inspection and palpation and tender. Lungs: Lungs clear to auscultation. No wheezing, rhonchi, rales.. Heart: RRR without murmur, gallop, or rubs. No ectopy. Abdomen: Normal abdominal exam, Abdomen soft, non-tender. Bowel sounds normal. No masses, organomegaly. Extremities: No deformities, edema, skin discoloration, clubbing or cyanosis. Good capillary refill. . Peripheral Pulses: Normal. Psychiatric: pleasant, cooperative Health Maintenance List Hepatitis B Vaccine(1 of 3 - 19+ 3-dose series) Never done Pneumococcal Vaccine(2 of 2 - PCV) due on 05/03/2015 Cervical Cancer Screening due on 02/15/2023 Covid-19 Vaccine(2023- season) Never done DTaP,Tdap,Td Vaccine(3 - Td or Tdap) due on 09/13/2034 Influenza Vaccine Completed Hepatitis C Screening Completed HIV Screening Completed Data reviewed ASSESSMENT/PLAN: 1. Well adult exam - ICD9: V70.0, ICD10: Z00.00 (primary diagnosis) - THYROID STIMULATING HORMONE - T3 - T4 FREE/FREE THYROXINE - THYROGLOBULIN ANTIBODY - THYROID PEROXIDASE ANTIBODY 2. Family history of thyroid disease - ICD9: V18.19, ICD10: Z83.49 - THYROID STIMULATING HORMONE (more content not included)... Normal [facility] Mumps Antibody,IgGon 025 MUMPS Ab, IgG < 9.0 Low Immune >10.9 [facility] Comment on above: Result Comment: Nega tive <9.0 Equivocal 9.0 - 10.9 Positive >10.9 A positive result generally indicates past exposure to Mumps virus or previous vaccination. Performed By: #### L 509.4015, L3100.0539, L3100.3400, L3400.1750 #### [facility] [address] [place], [place], [id number] [facility] EMP Rubeola Titeron - RUBEOLA Ab, IgG 280.0 AU/mL Normal Immune >16.4 [facility] Comment on above: Result Comment: Nega tive <13.5 Equivocal 13.5 - 16.4 Positive >16.4 Presence of antibodies to Rubeola is presumptive evidence of immunity except when acute infection is suspected. Performed at: [address] [id number] Canine Deputy: Toby Reese PhD, Phone: [phone] Performed By: #### L 509.4015, L3100.0539, L3100.3400, L3400.1750 #### [facility] [address] [place], [address] Hepatitis B Surf AB - EMPon 12-21-2024 HEP B Surf Ab Non-Reactive Normal [facility] Comment on above: Result Comment: Non Reactive: Inconsistent with immunity less than <10 mIU/mL Reactive: Consistent with immunity greater than or equal to 10 mIU/mL Performed By: #### L 509.4015, L3100.0539, L3100.3400, L3400.1750 #### [facility] [address] [place], [place], [id number] Rubella IgG [facility] EM[facility]OY[facility] 0 12-21-2024 Rubella IgG Reactive Normal Nonreactive [facility] Comment on above: Result Comment: Anti body Results Interpretation of Immune Status Non Reactive Presumed Non-Immune Equivocal Equivocal Reactive Presumed Immune Performed By: #### L 509.4015, L3100.0539, L3100.3400, L3400.1750 #### [facility] [address] [place], [address] Emergency Department Summary on 09-13-2024 Emergency Department Summary [facility] Medical Records Department [address] [place] [address] Emergency Department Summary 09/13/24 MR#: [id number] Acct: [id number] Name: ASHLEY BROWN Rep #: [id number] : 1990 33 From: Yusuf Roe MD PCP: Dr. Romulo Kemp, DO Status:REG ER Location: ED HPI History of Present Illness Chief Complaint: Laceration Detail of Chief Complaint: Injury to right little finger Informant: patient Onset/Context/Timing Onset: Today and Hours Mechanism/Context: Blunt Injury Location of pain/injuries: - (Right little finger) Quality of Pain: Aching Location: Nail of the right little finger Current Severity: Mild Maximum Severity: Moderate Worsened by: Use of right hand Relieved by: Remaining still Associated Symptoms Associated Symptoms: Negative for Parasthesias, Weakness, Loss of function or Inability to ambulate Narrative Narrative: Patient is a 33-year-old sxmsw-plvx-crdaxumr woman. She presents with injury to her left little finger. She was peeling potatoes. The potato slicer hit her nail and partially avulsed the nail. She denies pain in the finger. She denies limited range of motion. She states her last tetanus shot was when she was 14. Tetanus Immunization: >10 years Prior similar symptoms: No Recent Illness/Hospitalization: No PFSH PFS Medical History (Updated 09/13/24 @ 22:[address] Yusuf Roe MD) EDNA III (cervical intraepithelial neoplasia III) Home Medications ???Medication ???Instructions ???Recorded ???Last Taken ???Type acetaminophen 325 mg tablet 325 mg PO ONCE PRN Headache 08/04/20 Unknown History (Tylenol) lorazepam 1 mg tablet 1 mg PO PRN PRN Anxiety 10/09/20 Unknown History Allergy/AdvReac Type Severity Reaction Status Date / Time nut - unspecified Allergy Hives Verified 09/13/24 20:00 Family History Father Heart disease Mother COPD (chronic obstructive pulmonary disease) Diabetes Grandfather Heart disease Surgical History Hx of bilateral salpingectomy History of total vaginal hysterectomy (TVH) History of oral surgery History of dilation and curettage History of cholecystectomy Social History household members: spouse number of children: 2 current occupational status: employed history of recent travel: No sexually active: Yes Smoking Status: Current every day smoker tobacco type: cigarettes alcohol intake: current alcohol intake frequency: holidays/special occasions only substance use type: does not use caffeine: Yes what type of physical activity do you participate in: none seatbelt use: always do you feel safe at home: Yes ROS ROS ED Neurologic Neurologic: Denies paresthesias or weakness Hematologic/Lymphatic Hematologic/Lymphatic: Denies easy bleeding or easy bruising EXAM Physical Exam Const Vital Signs: 09/13/24 20:00 Temperature 97.2 F L Temperature Source Temporal Pulse Rate 105 H Respiratory Rate 26 H Blood Pressure 125/87 H Blood Pressure Mean 99 Pulse Ox 99 Oxygen Delivery Method Room Air Positive well nourished and well developed General Appearance ED: well developed and NAD HEENT atraumatic Eyes PERRL and EOMs intact bilaterally Resp normal respiratory effort Cardio regular rhythm Rate: regular rate Extremity Extremity Narrative: There is injury to the nailbed of the right little finger. The extensor Intrasite tendon is functionally intact. The flexor digitorum superficialis and flexor digitorum profundus are intact. Patient has normal to point discrimination. Patient has normal capillary refill. Since there is no swelling of the digit or pain on the volar surface x-ray was not obtained this is a soft tissue injury. Neuro oriented x3 and CN's II-XII intact bilaterally Sensorium / Orientation: alert Skin No no wounds Skin Narrative: Nailbed injury PROC Procedures Other Procedures Procedure(s): Digit was anesthetized by digital block using 1% lidocaine without epinephrine. A total of 2.5 cc was infiltrated. After 10 minutes patient had no sensation in the digit. The nail was removed. Was removed in 2 pieces. There is a small flap like laceration distal ulnar side of the nailbed. Using 5-0 Vicryl 1 simple interrupted stitch was placed. The nail was cleansed. The nail was then sutured back in place. Patient's wound was irrigated with 100 cc of normal saline. In my opinion antibiotics are not indicated. Discharge Plan Triage Chief Complaint: Laceration ED Provider: Yusuf Roe Dx/Rx/DC Orders Clinical Impression: Nailbed laceration, finger Instructions: ED Laceration, All Closures Prescriptions: No Action aceta (more content not included)... Normal [facility] CNOVon 08-14-2024 [facility] ASHLEY BROWN ([id number]) 1990 F Date Time Provider Department 08/14/24 7[facility]00 [facility] During your visit today, we recorded the following information about you: Temperature Pulse Respiration Blood pressure 97.8 degrees 94/minute 16/minute 92/72 Weight 48.5 kg Anabel Hughes PA-C 08/14/2024 7:32 AM Signed Chief Complaint Patient presents with: Recheck: Was seen in [facility]. Still having cough and headache and shortness breath HPI Ashley Brown is a 33 year old female who presents here today for Above Complaints.. Still has dry cough Last fever was 4 days ago. Does feel slightly better. States she is starting to feel chest tightness again. Past medical history, appointments, medications, allergies reviewed. Previous Medical History PAST MEDICAL HISTORY Diagnosis Date Abnormal Pap smear of cervix FRACTURE WRIST AGE 6 Herpes simplex without mention of complication PANCREATITIS 2010 Recurrent major depression in partial remission (HCC) 07/17/2015 ? hypomanic Previous Surgical History PAST SURGICAL HISTORY Procedure Laterality Date COLONOSCOPY FLX DX W/COLLJ SPEC WHEN PFRMD 11/22/2017 Colonoscopy DILATION AND CURETTAGE DXAND/THER NONOBSTETRIC 2012 Dilation AND curettage ESOPHAGOGASTRODUODENOSCOPY TRANSORAL DIAGNOSTIC 11/22/2017 EGD LAPAROSCOPY SURG CHOLECYSTECTOMY 2011 Cholecystectomy, lap Family History FAMILY HISTORY Problem Relation Age of Onset Diabetes Mother COPD Mother Thyroid Mother Lipids Father Heart Father Patient Allergies ALLERGIES Allergen Reactions Seasonal Allergies Other: See Comments RUNNY NOSE, ITCHY EYES Tree Nuts Hives Current Medications Current Outpatient Medications on File Prior to Visit Medication Sig lorazepam (ATIVAN ORAL) Take by mouth. acetaminophen (TYLENOL) 325 mg tablet Take 650 mg by mouth every 6 hours as needed. cyclobenzaprine (FLEXERIL) 10 mg tablet Take 1 tablet by mouth twice daily as needed for muscle spasm. (Patient not taking: Reported on 10/22/2023) meclizine (ANTIVERT) 12.5 mg tab Take 1 tablet by mouth every 6 hours as needed (dizziness). (Patient not taking: Reported on 07/10/2021 ) nicotine (NICODERM) 14 mg/24 hr Apply 1 Patch as directed every 24 hours. (Patient not taking: Reported on 07/10/2021 ) ondansetron orally disintegrating (ZOFRAN ODT) 8 mg disintegrating tablet Take one tab 30 min prior to taking azithromycin. Can repeat in 8 hrs if needed. (Patient not taking: Reported on 10/29/2020 ) hydrOXYzine HCl (ATARAX) 25 mg tablet Take 1 tablet by mouth every 6 hours as needed for Itching/Rash. (Patient not taking: Reported on 10/29/2020 ) guaiFENesin (MUCINEX) 600 mg 12 hr tablet Take 2 tablets by mouth twice daily. (Patient not taking: Reported on 04/20/2019 ) benzonatate (TESSALON PERLES) 100 mg capsule Take 1 capsule by mouth three times daily as needed. (Patient not taking: Reported on 04/20/2019 ) albuterol HFA (PROVENTIL HFA, VENTOLIN HFA) 90 mcg/actuation inhaler Inhale 2 Puffs as instructed every 4 hours as needed. (Patient not taking: Reported on 04/20/2019 ) nystatin (MYCOSTATIN) 100,000 unit/mL suspension Take 5 mL by mouth four times daily. 1tsp swish in mouth for several minutes, then swallow (or expectorate) 4 times daily until gone. (Patient not taking: Reported on 12/06/2018 ) estradiol (ESTRACE) 1 mg tablet Take 1 tablet by mouth once daily for 10 days. (Patient not taking: Reported on 12/06/2018 ) traMADol (ULTRAM) 50 mg tablet Take 1 tablet by mouth as needed for Pain for up to 7 days. (Patient not taking: Reported on 07/07/2021) Food Supplement, Lactose-Free (ENSURE ACTIVE HIGH PROTEIN) liqd Take 237 mL by mouth twice daily. (Patient not taking: Reported on 04/20/2019 ) colestipol (COLESTID) 1 gram tablet Take 1 tablet by mouth once daily. (Patient not taking: Reported on 04/20/2019 ) hyoscyamine SR (SYMAX-SR) 0.375 mg 12 hr tablet Take 1 tablet by mouth twice daily. (Patient not taking: Reported on 04/20/2019 ) ondansetron orally disintegrating (ZOFRAN ODT) 4 mg disintegrating tablet DISSOLVE ONE TABLET BY MOUTH EVERY 8 HOURS NEEDED FOR NAUSEA (Patient not taking: Reported on 05/15/2021) sucralfate (CARAFATE) 1 gram tablet TAKE 1 PO 30 MINUTES BEFORE MEALS AND AT BEDTIME. (Patient not taking: Reported on 12/06/2018 ) fluticasone (FLONASE) 50 mcg/actuation nasal spray Use 2 Sprays in each nostril once daily. Rinse mouth after use. (Patient not taking: Reported on 04/20/2019 ) No current facility-administered medications on file prior to visit. Social History Social History Tobacco Use Smoking status: Every Day Current packs/day: 0.50 Average packs/day: 0.5 packs/day for 9.0 years (4.5 ttl pk-yrs) Types: Cigarettes Smokeless tobacco: Never Vaping Use Vaping status: Never Used Subs (more content not included)... Normal [facility] 08-14-2024 [facility] Telephone ([facility]) -- ASHLEY BROWN ([id number]) 1990 F Date Time Provider Department 08/14/24 ANABEL HUGHES During your visit today, we recorded the following information about you: Anabel Hughes PA-C 08/14/2024 8:41 AM Signed Xray neg. Continue as we discussed. JOE Zuñiga Sherill A, LPN 08/14/2024 9:15 AM Signed Pt notified of same. Juvencio Holbrook LPN Allergies As of Date: 08/14/2024 Noted Allergy Reaction SEASONAL ALLERGIES 03/27/2013 14 - Other: See Comments Comments: RUNNY NOSE, ITCHY EYES TREE NUTS 10/27/2017 4 - Hives Date Reviewed: 08/14/2024 Reviewed by: Juvencio Holbrook LPN - Fully Assessed Reason for Visit: Results [95] Prescriptions as of 08/14/2024 - albuterol HFA (PROVENTIL HFA, VENTOLIN HFA) 90 mcg/actuation inhaler Inhale 2 Puffs as instructed every 4 hours as needed. - cefADROxil (DURICEF) 500 mg capsule Take 1 capsule by mouth two times a day for 10 days. - lorazepam (ATIVAN ORAL) Take by mouth. - hyoscyamine SR (SYMAX-SR) 0.375 mg 12 hr tablet Take 1 tablet by mouth twice daily. - acetaminophen (TYLENOL) 325 mg tablet Take 650 mg by mouth every 6 hours as needed. Problem List As Of Date 08/14/2024 Noted Resolved History of delivery, currently *03/27/2013 07/03/2014 Tobacco use in [O99.330] 03/27/2013 07/03/2014 History of herpes genitalis [Z86.19] 03/27/2013 07/03/2014 History of pancreatitis [Z87.19] 03/27/2013 07/03/2014 Subchorionic hemorrhage [O46.8X9] 04/05/2013 07/03/2014 History of miscarriage, currently [O09*09/20/2013 07/03/2014 Low-lying placenta [O44.40] 02/18/2014 07/03/2014 Recurrent major depression in partial remission*07/17/2015 Panic disorder without agoraphobia [F41.0] 07/17/2015 Abnormal uterine bleeding [N93.9] 09/07/2016 Altered bowel habits [R19.4] 10/28/2017 Dyspepsia [R10.13] 10/28/2017 Encounter Status:Closed by JUVENCIO HOLBROOK Chad on 08/14/24 Normal [facility] XR CHEST 2V FRONTAL/LATon XR CHEST 2V FRONTAL/LAT * * *Final Report* * * DATE OF EXAM: Aug 14 2024 8:14AM WOX 5291 - XR CHEST 2V FRONTAL/LAT / PROCEDURE REASON: Bronchitis * * * * Physician Interpretation * * * * EXAMINATION: CHEST RADIOGRAPH (2 VIEW FRONTAL and LATERAL) CLINICAL HISTORY: Bronchitis MQ: XC2_6 EXAM DATE/TIME: 08/14/2024 8:14 AM COMPARISON: Chest x-ray on 01/05/2019 RESULT: Lines, tubes, and devices: None. Lungs and pleura: No consolidation. No lung mass. No pleural effusion. No pneumothorax. Cardiomediastinal silhouette: Normal cardiomediastinal silhouette. Bones and soft tissues: Unremarkable. IMPRESSION: No acute radiographic abnormality. 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: [facility] Transcribe Date/Time: Aug 14 2024 8:37A Dictated by : CHANG COWART MD This examination was interpreted and the report reviewed and electronically signed by: CHANG COWART MD on Aug 14 2024 8:38AM EST DIVISION OF RADIOLOGY * * *Final Report* * * DATE OF EXAM: Aug 14 2024 8:14AM WOX 5291 - XR CHEST 2V FRONTAL/LAT / PROCEDURE REASON: Bronchitis * * * * Physician Interpretation * * * * EXAMINATION: CHEST RADIOGRAPH (2 VIEW FRONTAL & LATERAL) CLINICAL HISTORY: Bronchitis MQ: XC2_6 EXAM DATE/TIME: 08/14/2024 8:14 AM COMPARISON: Chest x-ray on 01/05/2019 RESULT: Lines, tubes, and devices: None. Lungs and pleura: No consolidation. No lung mass. No pleural effusion. No pneumothorax. Cardiomediastinal silhouette: Normal cardiomediastinal silhouette. Bones and soft tissues: Unremarkable. DIVISION OF RADIOLOGY Provider, Leslie Velásquez - 08/14/2024 * * *Final Report* * * DATE OF EXAM: Aug 14 2024 8:14AM WOX 5291 - XR CHEST 2V FRONTAL/LAT / PROCEDURE REASON: Bronchitis * * * * Physician Interpretation * * * * EXAMINATION: CHEST RADIOGRAPH (2 VIEW FRONTAL & LATERAL) CLINICAL HISTORY: Bronchitis MQ: XC2_6 EXAM DATE/TIME: 08/14/2024 8:14 AM COMPARISON: Chest x-ray on 01/05/2019 RESULT: Lines, tubes, and devices: None. Lungs and pleura: No consolidation. No lung mass. No pleural effusion. No pneumothorax. Cardiomediastinal silhouette: Normal cardiomediastinal silhouette. Bones and soft tissues: Unremarkable. IMPRESSION IMPRESSION: No acute radiographic abnormality. 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: [facility] Transcribe Date/Time: Aug 14 2024 8:37A Dictated by : CHANG COWART MD This examination was interpreted and the report reviewed and electronically signed by: CHANG COWART MD on Aug 14 2024 8:38AM EST [facility] Radiology Study observation (narrative) [facility] XR Chest PA and LateralOrder ed By: Ccf Provider on 08-14-2024 [facility] -- ASHLEY BROWN ([id number]) 1990 F Date Time Provider Department 08/07/24 ROSELINE SOTO [facility] During your visit today, we recorded the following information about you: Roseline Soto APRN.LEGAL CONSULTANT 08/07/2024 4:00 PM Signed Patient reaches out. Endorses that her chid is being seen presently . Dx with pneumonia. Her daughter last week I don't feel the ATB is working Will change to Zithromax. Patient aware. Allergies As of Date: 08/07/2024 Noted Allergy Reaction SEASONAL ALLERGIES 03/27/2013 14 - Other: See Comments Comments: RUNNY NOSE, ITCHY EYES TREE NUTS 10/27/2017 4 - Hives Date Reviewed: 08/03/2024 Reviewed by: Sunshine Kim MA - Fully Assessed Reason for Visit: Results [95] Order(s):azithromycin (ZITHROMAX) 250 mg tabletTake 2 tablets by mouth once daily for 1 day, THEN 1 tablet once daily for 4 days.Disp: 6 tabletRfl: 0 Prescriptions as of 08/07/2024 - azithromycin (ZITHROMAX) 250 mg tablet Take 2 tablets by mouth once daily for 1 day, THEN 1 tablet once daily for 4 days. - nitrofurantoin monohydrate and macrocrystal (MACROBID) 100 mg capsule Take 1 capsule by mouth two times a day for 5 days. - amoxicillin-clavulanate potassium (AUGMENTIN) 875-125 mg per tablet Take 1 tablet by mouth two times a day for 10 days. - predniSONE (DELTASONE) 20 mg tablet Take 1 tablet by mouth once daily for 4 days. Take daily with food. - cyclobenzaprine (FLEXERIL) 10 mg tablet Take 1 tablet by mouth twice daily as needed for muscle spasm. - meclizine (ANTIVERT) 12.5 mg tab Take 1 tablet by mouth every 6 hours as needed (dizziness). - nicotine (NICODERM) 14 mg/24 hr Apply 1 Patch as directed every 24 hours. - lorazepam (ATIVAN ORAL) Take by mouth. - ondansetron orally disintegrating (ZOFRAN ODT) 8 mg disintegrating tablet Take one tab 30 min prior to taking azithromycin. Can repeat in 8 hrs if needed. - hydrOXYzine HCl (ATARAX) 25 mg tablet Take 1 tablet by mouth every 6 hours as needed for Itching/Rash. - guaiFENesin (MUCINEX) 600 mg 12 hr tablet Take 2 tablets by mouth twice daily. - benzonatate (TESSALON PERLES) 100 mg capsule Take 1 capsule by mouth three times daily as needed. - albuterol HFA (PROVENTIL HFA, VENTOLIN HFA) 90 mcg/actuation inhaler Inhale 2 Puffs as instructed every 4 hours as needed. - nystatin (MYCOSTATIN) 100,000 unit/mL suspension Take 5 mL by mouth four times daily. 1tsp swish in mouth for several minutes, then swallow (or expectorate) 4 times daily until gone. - estradiol (ESTRACE) 1 mg tablet Take 1 tablet by mouth once daily for 10 days. - traMADol (ULTRAM) 50 mg tablet Take 1 tablet by mouth as needed for Pain for up to 7 days. - Food Supplement, Lactose-Free (ENSURE ACTIVE HIGH PROTEIN) liqd Take 237 mL by mouth twice daily. - colestipol (COLESTID) 1 gram tablet Take 1 tablet by mouth once daily. - hyoscyamine SR (SYMAX-SR) 0.375 mg 12 hr tablet Take 1 tablet by mouth twice daily. - ondansetron orally disintegrating (ZOFRAN ODT) 4 mg disintegrating tablet DISSOLVE ONE TABLET BY MOUTH EVERY 8 HOURS NEEDED FOR NAUSEA - sucralfate (CARAFATE) 1 gram tablet TAKE 1 PO 30 MINUTES BEFORE MEALS AND AT BEDTIME. - fluticasone (FLONASE) 50 mcg/actuation nasal spray Use 2 Sprays in each nostril once daily. Rinse mouth after use. - acetaminophen (TYLENOL) 325 mg tablet Take 650 mg by mouth every 6 hours as needed. Problem List As Of Date 08/07/2024 Noted Resolved History of delivery, currently *03/27/2013 07/03/2014 Tobacco use in [O99.330] 03/27/2013 07/03/2014 History of herpes genitalis [Z86.19] 03/27/2013 07/03/2014 History of pancreatitis [Z87.19] 03/27/2013 07/03/2014 Subchorionic hemorrhage [O46.8X9] 04/05/2013 07/03/2014 History of miscarriage, currently [O09*09/20/2013 07/03/2014 Low-lying placenta [O44.40] 02/18/2014 07/03/2014 Recurrent major depression in partial remission*07/17/2015 Panic disorder without agoraphobia [F41.0] 07/17/2015 Abnormal uterine bleeding [N93.9] 09/07/2016 Altered bowel habits [R19.4] 10/28/2017 Dyspepsia [R10.13] 10/28/2017 Prescriptions ordered this encounter Disp Refills Start End AZITHROMYCIN 250 MG TABLET 6 ta* 0 08/07/2024 08/12/2024 Route: ORAL Sig: Take 2 tablets by mouth once daily for 1 day, THEN 1 tablet once daily for 4 days. Encounter Status:Closed by ROSELINE SOTO on 08/07/24 [facility] CNPNon 08-05-2024 [facility] Telephone ([facility]) -- ASHLEY BROWN ([id number]) 1990 F Date Time Provider Department 08/05/24 KYREE LEAHY [facility] During your visit today, we recorded the following information about you: Kyree Leahy APRN.[facility] 08/05/2024 11:43 AM Signed Urinary culture came back and patient needs her antibiotic changed. Going to change the antibiotic to Macrobid twice a day for 5 days. Patient can continue taking the other antibiotic for upper respiratory stuff. If no improvement follow-up with PCP. Afua Woo MA 08/05/2024 1:54 PM Signed Patient given results and verbalized understanding of instructions given. Afua Woo MA Allergies As of Date: 08/05/2024 Noted Allergy Reaction SEASONAL ALLERGIES 03/27/2013 14 - Other: See Comments Comments: RUNNY NOSE, ITCHY EYES TREE NUTS 10/27/2017 4 - Hives Date Reviewed: 08/03/2024 Reviewed by: Sunshine Kim MA - Fully Assessed Reason for Visit: Results [95] Orders [681] Order(s):nitrofurantoin monohydrate and macrocrystal (MACROBID) 100 mg capsuleTake 1 capsule by mouth two times a day for 5 days.Disp: 10 capsuleRfl: 0 Prescriptions as of 08/05/2024 - nitrofurantoin monohydrate and macrocrystal (MACROBID) 100 mg capsule Take 1 capsule by mouth two times a day for 5 days. - amoxicillin-clavulanate potassium (AUGMENTIN) 875-125 mg per tablet Take 1 tablet by mouth two times a day for 10 days. - predniSONE (DELTASONE) 20 mg tablet Take 1 tablet by mouth once daily for 4 days. Take daily with food. - cyclobenzaprine (FLEXERIL) 10 mg tablet Take 1 tablet by mouth twice daily as needed for muscle spasm. - meclizine (ANTIVERT) 12.5 mg tab Take 1 tablet by mouth every 6 hours as needed (dizziness). - nicotine (NICODERM) 14 mg/24 hr Apply 1 Patch as directed every 24 hours. - lorazepam (ATIVAN ORAL) Take by mouth. - ondansetron orally disintegrating (ZOFRAN ODT) 8 mg disintegrating tablet Take one tab 30 min prior to taking azithromycin. Can repeat in 8 hrs if needed. - hydrOXYzine HCl (ATARAX) 25 mg tablet Take 1 tablet by mouth every 6 hours as needed for Itching/Rash. - guaiFENesin (MUCINEX) 600 mg 12 hr tablet Take 2 tablets by mouth twice daily. - benzonatate (TESSALON PERLES) 100 mg capsule Take 1 capsule by mouth three times daily as needed. - albuterol HFA (PROVENTIL HFA, VENTOLIN HFA) 90 mcg/actuation inhaler Inhale 2 Puffs as instructed every 4 hours as needed. - nystatin (MYCOSTATIN) 100,000 unit/mL suspension Take 5 mL by mouth four times daily. 1tsp swish in mouth for several minutes, then swallow (or expectorate) 4 times daily until gone. - estradiol (ESTRACE) 1 mg tablet Take 1 tablet by mouth once daily for 10 days. - traMADol (ULTRAM) 50 mg tablet Take 1 tablet by mouth as needed for Pain for up to 7 days. - Food Supplement, Lactose-Free (ENSURE ACTIVE HIGH PROTEIN) liqd Take 237 mL by mouth twice daily. - colestipol (COLESTID) 1 gram tablet Take 1 tablet by mouth once daily. - hyoscyamine SR (SYMAX-SR) 0.375 mg 12 hr tablet Take 1 tablet by mouth twice daily. - ondansetron orally disintegrating (ZOFRAN ODT) 4 mg disintegrating tablet DISSOLVE ONE TABLET BY MOUTH EVERY 8 HOURS NEEDED FOR NAUSEA - sucralfate (CARAFATE) 1 gram tablet TAKE 1 PO 30 MINUTES BEFORE MEALS AND AT BEDTIME. - fluticasone (FLONASE) 50 mcg/actuation nasal spray Use 2 Sprays in each nostril once daily. Rinse mouth after use. - acetaminophen (TYLENOL) 325 mg tablet Take 650 mg by mouth every 6 hours as needed. Problem List As Of Date 08/05/2024 Noted Resolved History of delivery, currently *03/27/2013 07/03/2014 Tobacco use in [O99.330] 03/27/2013 07/03/2014 History of herpes genitalis [Z86.19] 03/27/2013 07/03/2014 History of pancreatitis [Z87.19] 03/27/2013 07/03/2014 Subchorionic hemorrhage [O46.8X9] 04/05/2013 07/03/2014 History of miscarriage, currently [O09*09/20/2013 07/03/2014 Low-lying placenta [O44.40] 02/18/2014 07/03/2014 Recurrent major depression in partial remission*07/17/2015 Panic disorder without agoraphobia [F41.0] 07/17/2015 Abnormal uterine bleeding [N93.9] 09/07/2016 Altered bowel habits [R19.4] 10/28/2017 Dyspepsia [R10.13] 10/28/2017 Prescriptions ordered this encounter Disp Refills Start End NITROFURANTOIN MONOHYDRATE AND MACROCR* 10 c* 0 08/05/2024 08/10/2024 Route: ORAL Sig: Take 1 capsule by mouth two times a day for 5 days. Encounter Status:Closed by AFUA WOO on 08/05/24 [facility] Bacteria Culton 4 Bacteria identified Cx Nom (U) ORGANISM ID: 1 >=100,000 CFU/ml Escherichia coli ORGANISM ID: 1 (ESCHERICHIA COLI) ANTIBIOTIC INTERPRETATION LOTUS STATUS REFERENCE RANGE Ampicillin I 16 F Susceptible <=8 , Intermediate >8 , Resistant >16 Cefazolin S <=4 F Susceptible 0-16 , Intermediate <0 or >16 , Resistant >16 For uncomplicated urinary tract infections, cefazolin results can be used to predict susceptibility or resistance to cephalexin. Ceftriaxone S <=1 F Susceptible <=1 , Intermediate >1 , Resistant >=4 Cefepime S <=1 F Susceptible <=2 , Susceptible-Dose Dependent >2 , Resistant >=16 Ertapenem S <=0.5 F Susceptible <=0.5 , Intermediate >.5 , Resistant >1 Meropenem S <=0.25 F Susceptible <=1 , Intermediate >1 , Resistant >2 Ampicillin/Sulbact S 4 F Susceptible <=8 , Intermediate >8 , Resistant >16 Piperacillin/Tazobac S <=4 F Susceptible <16 , Susceptible-Dose Dependent >=16 , Resistant >=32 Gentamicin S <=1 F Susceptible <=2 , Intermediate >2 , Resistant >=8 Tobramycin S <=1 F Susceptible <4 , Intermediate >=4 , Resistant >=8 Trimeth sulfameth S <=20 F Susceptible <=40 , Resistant >40 Ciprofloxacin S <=0.25 F Susceptible <0.5 , Intermediate >=.5 , Resistant >=1 Nitrofurantoin S <=16 F Susceptible <=32 , Intermediate >32 , Resistant >64 Abnormal [facility] Comment on above: Performed By: #### 6 30-4 ####[facility] [id number] [place] [id number] [place] CNOVon 08-03-2024 CNOV Office Visit ([facility] ) -- ASHLEY BROWN ([id number]) 1990 F Date Time Provider Department 08/03/24 4:45 PM EMILY BUSBY [facility] During your visit today, we recorded the following information about you: Temperature Pulse Respiration Blood pressure 99 degrees 114/minute 18/minute 125/85 Weight 50 kg Emily Busby APRN.LEGAL CONSULTANT 08/03/2024 5:08 PM Signed Subjective UTI Associated symptoms include urgency. Pertinent negatives include no chills, no nausea and no vomiting. Cough Associated symptoms include shortness of breath and wheezing. Pertinent negatives include no chills and no sore throat. Ashley Brown is a 33 year old female who presents with cough x 1 month, feels like she is unable to cough up anything, chest feels tight with cough. She has not had a fever. Cough is generally dry. She has has some shortness of breath. She denies any known sick contacts. She also notes having cloudy urine, urgency, and dysuria since this morning. Denies fever. No back pain today. She also notes finding a small abscess above her top teeth. One opened and drained yesterday but she is still having some pain in the area. She feels like another one is developing. She notes poor dentition due to a medication she used to take. Review of Systems Constitutional: Negative for chills and fever. HENT: Positive for congestion (runny nose that started today). Negative for sore throat. Respiratory: Positive for cough, shortness of breath and wheezing. Negative for sputum production. Cardiovascular: Negative. Gastrointestinal: Negative for abdominal pain, nausea and vomiting. Genitourinary: Positive for dysuria and urgency. Musculoskeletal: Negative for back pain. BP 125/85 Pulse 114 Temp 37.2 ?C (99 ?F) Resp 18 Wt 50 kg (110 lb 3.7 oz) LMP 05/01/2020 SpO2 99% BMI 18.34 kg/m? PAST MEDICAL HISTORY Diagnosis Date Abnormal Pap smear of cervix FRACTURE WRIST AGE 6 Herpes simplex without mention of complication PANCREATITIS 2010 Recurrent major depression in partial remission (HCC) 07/17/2015 ? hypomanic PAST SURGICAL HISTORY Procedure Laterality Date COLONOSCOPY FLX DX W/COLLJ SPEC WHEN PFRMD 11/22/2017 Colonoscopy DILATION AND CURETTAGE DXAND/THER NONOBSTETRIC 2012 Dilation AND curettage ESOPHAGOGASTRODUODENOSCOPY TRANSORAL DIAGNOSTIC 11/22/2017 EGD LAPAROSCOPY SURG CHOLECYSTECTOMY 2010 Cholecystectomy, lap ALLERGIES Seasonal Allergies and Tree Nuts MEDICATIONS amoxicillin-clavulanate potassium (AUGMENTIN) 875-125 mg per tablet Take 1 tablet by mouth two times a day for 10 days. predniSONE (DELTASONE) 20 mg tablet Take 1 tablet by mouth once daily for 4 days. Take daily with food. cyclobenzaprine (FLEXERIL) 10 mg tablet Take 1 tablet by mouth twice daily as needed for muscle spasm. (Patient not taking: Reported on 10/22/2023) meclizine (ANTIVERT) 12.5 mg tab Take 1 tablet by mouth every 6 hours as needed (dizziness). (Patient not taking: Reported on 07/10/2021 ) nicotine (NICODERM) 14 mg/24 hr Apply 1 Patch as directed every 24 hours. (Patient not taking: Reported on 07/10/2021 ) lorazepam (ATIVAN ORAL) Take by mouth. ondansetron orally disintegrating (ZOFRAN ODT) 8 mg disintegrating tablet Take one tab 30 min prior to taking azithromycin. Can repeat in 8 hrs if needed. (Patient not taking: Reported on 10/29/2020 ) hydrOXYzine HCl (ATARAX) 25 mg tablet Take 1 tablet by mouth every 6 hours as needed for Itching/Rash. (Patient not taking: Reported on 10/29/2020 ) guaiFENesin (MUCINEX) 600 mg 12 hr tablet Take 2 tablets by mouth twice daily. (Patient not taking: Reported on 04/20/2019 ) benzonatate (TESSALON PERLES) 100 mg capsule Take 1 capsule by mouth three times daily as needed. (Patient not taking: Reported on 04/20/2019 ) albuterol HFA (PROVENTIL HFA, VENTOLIN HFA) 90 mcg/actuation inhaler Inhale 2 Puffs as instructed every 4 hours as needed. (Patient not taking: Reported on 04/20/2019 ) nystatin (MYCOSTATIN) 100,000 unit/mL suspension Take 5 mL by mouth four times daily. 1tsp swish in mouth for several minutes, then swallow (or expectorate) 4 times daily until gone. (Patient not taking: Reported on 12/06/2018 ) estradiol (ESTRACE) 1 mg tablet Take 1 tablet by mouth once daily for 10 days. (Patient not taking: Reported on 12/06/2018 ) traMADol (ULTRAM) 50 mg tablet Take 1 tablet by mouth as needed for Pain for up to 7 days. (Patient not taking: Reported on 07/07/2021) Food Supplement, Lactose-Free (ENSURE ACTIVE HIGH PROTEIN) liqd Take 237 mL by mouth twice daily. (Patient not taking: Reported on 04/20/2019 ) colestipol (COLESTID) 1 gram tablet Take 1 tablet by mouth once daily. (Patient not taking: Reported on 04/20/2019 ) hyoscyamine SR (SYMAX-SR) 0.375 mg 12 hr tablet Take 1 tablet by mouth twice daily. (Patient not taking: Reported o (more content not included)... Normal [facility] UA DIP, URINE (POC)on 2023 BILIRUBIN UA (POCT) Negative Negative [facility] CLARITY UA (POCT) Slightly Cloudy Cl [facility] COLOR UA (POCT) Yellow [facility] GLUCOSE UA (POCT) Negative Negative mg/dL [facility] Hemoglobin Ql (U) Negative Negative [facility] Interpretation and review of laboratory results Abnormal [facility] KETONE UA (POCT) Negative Negative mg/dL [facility] LEUKOCYTES UA (POCT) Negative Negative [facility] NITRITE UA (POCT) Positive Abnormal Negative [facility] PH UA (POCT) 6.5 4.5 - 8.0 [facility] Protein Ql (U) Negative Negative mg/dL [facility] SPECIFIC GRAVITY UA (POCT) 1.020 1.005 - 1.030 [facility] UROBILINOGEN UA (POCT) 0.2 Normal E.U./dL [facility] Location:[address], [place], [place], [id number] [place] [address] POINT OF CARE [facility] XR Shoulder - right 3 Viewso n 02-05-2022 IMPRESSION: Negative 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: [employer] Transcribe Date/Time: Feb 05 2022 11:42A Dictated by : TOSIN LARES MD This examination was interpreted and the report reviewed and electronically signed by: TOSIN LARES MD on Feb 05 2022 11:43AM EST DIVISION OF RADIOLOGY * * *Final Report* * * DATE OF EXAM: Feb 05 2022 11:40AM WOX [id number] - XR SHLDR >/=3V AP/EVELIN AP/OTHR RT / PROCEDURE REASON: Acute pain of right shoulder * * * * Physician Interpretation * * * * PROCEDURE: Right shoulder INDICATION: Acute pain of right shoulder .about 1.5 weeks ago threw a softball hare and heard a pop in right shoulder pain is anterior right shoulder/clavicle area TECHNIQUE: XR SHLDR >/=3V AP/EVELIN AP/OTHR RT COMPARISON: None FINDINGS: No fractures or dislocations are seen. The bones, joint spaces and soft tissues are unremarkable. DIVISION OF RADIOLOGY [facility] * * *Final Report* * * DATE OF EXAM: Feb 05 2022 11:40AM WOX 5253 - XR SHLDR >/=3V AP/EVELIN AP/OTHR RT / PROCEDURE REASON: Acute pain of right shoulder * * * * Physician Interpretation * * * * PROCEDURE: Right shoulder INDICATION: Acute pain of right shoulder .about 1.5 weeks ago threw a softball hare and heard a pop in right shoulder pain is anterior right shoulder/clavicle area TECHNIQUE: XR SHLDR >/=3V AP/EVELIN AP/OTHR RT COMPARISON: None FINDINGS: No fractures or dislocations are seen. The bones, joint spaces and soft tissues are unremarkable. IMPRESSION IMPRESSION: Negative 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: [employer] Transcribe Date/Time: Feb 05 2022 11:42A Dictated by : TOSIN LARES MD This examination was interpreted and the report reviewed and electronically signed by: TOSIN LARES MD on Feb 05 2022 11:43AM EST [facility] Radiology Study observation (narrative) [facility] XR Shoulder - right 3 ViewsO rdered By: Ccf Provider on 02-05-[address] [facility] [address] HEAD OR BRAIN W/O CONTRAS Ton 07-14-2018 CT HEAD OR BRAIN W/O CONTRAST ORIGINALCT HEAD OR BRAIN W/O CONTRAST Clinical Statement: pain; trauma patient. Status post fall. Headache and dizziness TECHNIQUE: Axial CT images from skull base to vertex without IV contrast. This exam was performed according to our departmental dose optimization program, and includes the following measures where applicable: automated exposure control, adjustment of the mAs and/or kVp according to patient size and/or exam, and an iterative reconstruction algorithm. COMPARISON: None. FINDINGS: There is no intracranial hemorrhage, mass, mass effect or abnormal extra-axial fluid collection. No CT evidence for acute territorial infarction. The density in the larger dural venous sinuses is grossly normal. The ventricles are normal. The skull base and calvarium demonstrate no acute abnormality. The included paranasal sinuses and mastoid air cells are predominantly clear. IMPRESSION: No acute intracranial abnormality. I have personally reviewed the images of this examination and agree with the resident's findings and interpretation. Interpreted By: Jameel MejiaPreliminary Report By: Jarod Hauser DOElectronically Signed By: Jameel Mejia Dictated Date: 07/14/2018 9:21:32 PM Prelim Date: 07/14/2018 9:23:46 PM Sign Date: 07/14/2018 9:44:18 PM Normal [facility]) [facility] Note on 07-14-2018 [facility] Note Normal [facility]) Pat Eduon 07-14-2018 [facility] Normal [facility]) Patient Summary Documentson 07-14-2018 Patient Summary Documents Normal [facility]) BSOon 2017 Protein mass conc . MICRO - MicrobiologyPROCEDURE: Culture Beta Strep Only [O1 *1]SOURCE: Throat BODY SITE:COLLECTED DATE/TIME: 11/23/2017 20:06 EST RECEIVED DATE/TIME: 11/23/2017 20:33 ESTSTART DATE/TIME: 11/23/2017 20:33 EST FREE TEXT SOURCE:FINAL REPORTSFinal Report []Verified Date/Time/Personnel: 2017 07:23 ESTNo Beta Strep isolated at 48hrs.PRELIMINARY REPORTSPreliminary Report []Verified Date/Time/Personnel: 11/25/2017 08:01 ESTNo beta Strep isolated at 24 hours.Order CommentsO1: Culture Beta Strep Only Order added by [email or web address] Locations*1: This test was performed at: [address], [address] [place] [address] ([place]) Comment on above: Performed By: #### ISHAAN Quintana PREGU ####[facility] [place], [place] [address] CURon 2017 CUR . MICRO - MicrobiologyPROCEDURE: Urine Culture [*1] Urine, Clean Catch BODY SITE:COLLECTED DATE/TIME: 11/23/2017 20:17 EST RECEIVED DATE/TIME: 11/24/2017 13:31 ESTSTART DATE/TIME: 11/24/2017 13:31 EST FREE TEXT SOURCE:FINAL REPORTSFinal Report []Verified Date/Time/Personnel: 2017 07:43 ESTNo growth at 48 hours.Sensitivity testing not indicated.PRELIMINARY REPORTSPreliminary Report []Verified Date/Time/Personnel: 11/25/2017 10:18 ESTNo growth to datePerforming Locations*1: This test was performed at: [address], [address] [place] [address] ([place]) Comment on above: Performed By: #### ISHAAN Quintana PREGU ####[facility] [place], [place] [address] CT ABD/PELVIS W/ IV CONTRAST ONLYon 11-24-2017 CT ABD/PELVIS W/ IV CONTRAST ONLY ORIGINALCT ABD/PELVIS W/ IV CONTRAST ONLY CLINICAL STATEMENT: Diffuse abd pain and fever since endoscopy and colonoscopy yesterday. COMPARISON: 08/17/2017. TECHNIQUE: Axial images were obtained from the lung bases through the pubic symphysis after the administration of IV contrast. Coronal and sagittal reformatted images were generated from the axial dataset. This exam was performed according to our departmental dose optimization program, and includes the following measures where applicable: automated exposure control, adjustment of the mAs and/or kVp according to patient size and/or exam, and an iterative reconstruction algorithm. FINDINGS: The included lung bases are clear. There is no visible pleural or pericardial effusion. The heart is normal in size. The liver, pancreas, spleen, adrenal glands, and kidneys are normal. The patient is status post cholecystectomy. The common duct is stable in size. Rectosigmoid wall thickening is suspected. The remainder of the colon is within normal limits. The appendix is normal. The stomach and small bowel are predominantly fluid-filled. There is no intraluminal bowel dilation. There is a small amount of free fluid in the pelvis. No free intraperitoneal air is identified. The aorta is normal in caliber. There is no lymphadenopathy. The urinary bladder, uterus, and adnexa are within normal limits. There is no visible fracture or aggressive osseous lesion. IMPRESSION: Suspect rectosigmoid wall thickening, consistent with inflammatory etiology. Evaluation of the bowel is limited without oral contrast. There is no evidence of obstruction, bowel perforation, or abscess. I have personally reviewed the images of this examination and agree with the resident's findings and interpretation. Interpreted By: Jameel Mendozareliminary Report By: Roseline Montelongo DOElectronically Signed By: Jameel Mendoza MD Dictated Date: 11/23/2017 9:25:13 PM Prelim Date: 11/23/2017 9:50:06 PM Sign Date: 11/23/2017 10:24:12 PM Normal [facility] ([place]) [facility] Note on 11-24-2017 [facility] Normal [facility] ([place]) RESPIDon 11-24-2017 Adenovirus Not Detected Normal Not Detected [facility] ([place]) Comment on above: Order Comment: Order added by [email or web address] Performed By: #### U ISHAAN Bonilla PREGU ####Ella [address] [place], [place] [address] Bordetella Parapertussis Not Detected Normal Not Detected [facility] ([place]) Comment on above: Order Comment: Order added by [email or web address] Performed By: #### U ISHAAN Bonilla PREGU ####Ella [address] [place], [place] [address] Bordetella Pertussis Not Detected Normal Not Detected [facility] ([place]) Comment on above: Order Comment: Order added by [email or web address] Performed By: #### U A, UAMICAO, PREGU ####Ella Sex[address] [place], [place] [address] Chlamydophila pneumoniae Not Detected Normal Not Detected [facility] ([place]) Comment on above: Order Comment: Order added by [email or web address] Performed By: #### U A, UAMICAO, PREGU ####Ella [address] [place], [place] [address] Coronavirus 229E Not Detected Normal Not Detected [facility] ([place]) Comment on above: Order Comment: Order added by [email or web address] Performed By: #### U A, UAMICAO, PREGU ####Ella [address] [place], [place] [address] Coronavirus HKU1 Not Detected Normal Not Detected [facility] ([place]) Comment on above: Order Comment: Order added by [email or web address] Performed By: #### U A, UAMICAO, PREGU ####Ella [address] [place], [place] [address] Coronavirus NL63 Not Detected Normal Not Detected [facility] ([place]) Comment on above: Order Comment: Order added by [email or web address] Performed By: #### U A, UAMICAO, PREGU ####Ella [address]se[address] [place], [place] [address] Coronavirus OC43 Not Detected Normal Not Detected [facility] ([place]) Comment on above: Order Comment: Order added by [email or web address] Performed By: #### U A, UAMICAO, PREGU ####Ella [address] [place], [place] [address] Human Metapneumovirus Not Detected Normal Not Detected [facility] ([place]) Comment on above: Order Comment: Order added by [email or web address] Performed By: #### U A, UAMICAO, PREGU ####Ella [address] [place], [place] [address] Influenza A Not Detected Normal Not Detected [facility] ([place]) Comment on above: Order Comment: Order added by [email or web address] Performed By: #### U A, UAMICAO, PREGU ####Ella [address] [place], [place] [address] Influenza B Not Detected Normal Not Detected [facility] ([place]) Comment on above: Order Comment: Order added by [email or web address] Performed By: #### U A, UAMICAO, PREGU ####Ella [address] [place], [place] [address] Mycoplasma pneumoniae Not Detected Normal Not Detected [facility] ([place]) Comment on above: Order Comment: Order added by [email or web address] Performed By: #### U A, UAMICAO, PREGU ####Ella [address] [place] [address] Parainfluenza 1 Not Detected Normal Not Detected [facility] ([place]) Comment on above: Order Comment: Order added by [email or web address] Performed By: #### U A, UAMICAO, PREGU ####Ella [address] [place] [id number] Parainfluenza 2 Not Detected Normal Not Detected [facility] ([place]) Comment on above: Order Comment: Order added by [email or web address] Performed By: #### U A, UAMICAO, PREGU ####Ella [address] [place] [id number] Parainfluenza 3 Not Detected Normal Not Detected [facility] ([place]) Comment on above: Order Comment: Order added by [email or web address] Performed By: #### U A, UAMICAO, PREGU ####Ella [address] [place] [id number] Parainfluenza 4 Not Detected Normal Not Detected [facility] ([place]) Comment on above: Order Comment: Order added by [email or web address] Performed By: #### U A, UAMICAO, PREGU ####Ella [address] [place], [place] [address] Respiratory Syncytial Virus Not Detected Normal Not Detected [facility] ([place]) Comment on above: Order Comment: Order added by JEAN [email or web address]_REFLEX_NEGAB Performed By: #### ISHAAN Quintana PREGU ####Ella [address] [place], [place] [address] Rhinovirus/Enteroviru s Not Detected Normal Not Detected [facility] ([place]) Comment on above: Order Comment: Order added by JEAN [email or web address]_REFLEX_NEGAB Performed By: #### ISHAAN Quintana PREGU ####Ella [address] [place], [place] [address] .Auto Diffon 11-23-2017 Ammonia mass conc (P) 1.00 10 3/mcL Normal 0.15-1.00 [facility] ([place]) Comment on above: Performed By: #### ISHAAN Quintana PREGU ####Ella [address] [place], [place] [address] Basophils Auto #/vol (Bld) 0.10 10 3/mcL Normal 0.00-0.19 [facility] ([place]) Comment on above: Performed By: #### ISHAAN Quintana PREGU ####Ella [address] [place], [place] [address] Basophils/100 WBC Auto (Bld) 0.5 % Normal 0.0-2.5 [facility] ([place]) Comment on above: Performed By: #### ISHAAN Quintana PREGU ####Ella [place] [place], [place] [address] Eosinophils Auto #/vol (Bld) 0.10 10 3/mcL Normal 0.00-0.40 [facility] ([place]) Comment on above: Performed By: #### ISHAAN Quintana PREGU ####Ella [address] [place], [place] [address] Eosinophils/100 WBC Auto (Bld) 1.0 % Normal 0.0-7.0 [facility] ([place]) Comment on above: Performed By: #### ISHAAN Quintana PREGU ####Ella [place] [place], [place] [address] Lymphocytes Auto #/vol (Bld) 2.40 10 3/mcL Normal 0.77-3.85 [facility] ([place]) Comment on above: Performed By: #### ISHAAN Quintana PREGU ####Ella [place] [place], [place] [address] Lymphocytes/100 WBC Auto (Bld) 23.3 % Normal 10.0-50.0 [facility] ([place]) Comment on above: Performed By: #### ISHAAN Quintana PREGU ####Ella [address] [place], [place] [address] Monocytes/100 WBC Auto (Bld) 9.6 % Normal 1.7-13.0 [facility] ([place]) Comment on above: Performed By: #### ISHAAN Quintana PREGU ####Ella [place] [place], [place] [address] Neutrophils/100 WBC Auto (Bld) 65.6 % Normal 37.0-80.0 [facility] ([place]) Comment on above: Performed By: #### ISHAAN Quintana PREGU ####Ella [place] [place], [place] [address] .GFRon 11-23-2017 GFR Non- >60 Normal [facility] ([place]) Comment on above: Result Comment: GFR Population mean for , Non- Americans Ages 20-29 = 116 mL/min/1.73 sq.m. Ages 30-39 = 107 mL/min/1.73 sq.m. Ages 40-49 = 99 mL/min/1.73 sq.m. Ages 50-59 = 93 mL/min/1.73 sq.m. Ages 60-69 = 85 mL/min/1.73 sq.m. Ages 70+ = 75 mL/min/1.73 sq.m.Chronic Kidney Disease: Less than 60 mL/min/1.73 square metersEnd Stage Renal Disease: Less than 15 mL/min/1.73 square meters Performed By: #### U A, UAMICAO, PREGU ####Ella [place] [place], [place] [address] GFR 110 ml/min/1.73sqm Normal [facility] ([place]) Comment on above: Result Comment: GFR Population mean for , Non- Americans Ages 20-29 = 116 mL/min/1.73 sq.m. Ages 30-39 = 107 mL/min/1.73 sq.m. Ages 40-49 = 99 mL/min/1.73 sq.m. Ages 50-59 = 93 mL/min/1.73 sq.m. Ages 60-69 = 85 mL/min/1.73 sq.m. Ages 70+ = 75 mL/min/1.73 sq.m.Chronic Kidney Disease: Less than 60 mL/min/1.73 square metersEnd Stage Renal Disease: Less than 15 mL/min/1.73 square meters Performed By: #### U A, UAMICAO, PREGU ####Ella [place] [place], [place] [address] .NEUABSon 11-23-2017 Neutrophil, Absolute 6.70 10 3/mcL High 2.85-6.16 A [facility] ([place]) Comment on above: Performed By: #### U A, UAMICROX, PREGU ####Ella [place] [place], [place] [address] .Urinalysis Microscopic (AO) on 11-23-2017 RBC Test strip #/vol (U) None Seen Normal None Seen [facility] ([place] Comment on above: Performed By: #### U A, UAMICAO, PREGU ####Ella [address] [place], [place] [address] UA Squam Epithelial 0-5 Abnormal None Seen [facility] ([place]) Comment on above: Performed By: #### U A, UAMICAO, PREGU ####Ella [place] [place], [place] [address] UA WBC 0-5 Abnormal None Seen [facility] ([place] Comment on above: Performed By: #### U A, UAMICAO, PREGU ####[facility] [place] [address] BSAon 11-23-2017 Body surface area Derived from formula . MICRO - MicrobiologyPROCEDURE: Beta Strep Antigen with Cult if Ind [*1]SOURCE: Throat BODY SITE:COLLECTED DATE/TIME: 11/23/2017 20:17 EST RECEIVED DATE/TIME: 11/23/2017 20:20 ESTSTART DATE/TIME: 11/23/2017 20:20 EST FREE TEXT SOURCE:FINAL REPORTSFinal Report []Verified Date/Time/Personnel: 11/23/2017 20:33 ESTAntigen Screen: Negative for Group A Strep.Culture confirmation to follow.COMMENT: Recommendations suggest that all negativeresults be confirmed with culture.Performing Locations*1: This test was performed at: [address] ([place]) Comment on above: Performed By: #### ISHAAN Quintana PREGU ####[place] [address] CBCon 11-23-2017 Erythrocyte distribution width Auto Ratio (RBC) 13.0 % Normal 11.5-14.5 [facility] ([place]) Comment on above: Performed By: #### ISHAAN Quintana PREGU ####Ella [address] [place] [address] Hematocrit Auto Volume Fraction (Bld) 43.0 % Normal 37.0-47.0 [facility] ([place]) Comment on above: Performed By: #### ISHAAN Quintana PREGU ####[place] [address] [place] [address] Hemoglobin mass conc (Bld) 14.3 G/dL Normal 12.0-16.0 [facility] ([place]) Comment on above: Performed By: #### ISHAAN Quintana PREGU ####Ella [address] [place] [address] MCH Auto Entitic mass (RBC) 30.0 pg Normal 27.0-31.2 [facility] ([place]) Comment on above: Performed By: #### ISHAAN Quintana PREGU ####Ella [address] [place], [place] [address] MCHC Auto mass conc (RBC) 33.3 G/dL Normal 33.0-37.0 [facility] ([place]) Comment on above: Performed By: #### ISHAAN Quintana PREGU ####Ella [address] [place], [place] [address] MCV Auto Entitic volume (RBC) 90.1 fL Normal 80.0-94.0 [facility] ([place]) Comment on above: Performed By: #### ISHAAN Quintana PREGU ####Ella [address] [place], [place] [address] Platelet mean volume Auto Entitic volume (Bld) 8.7 fL Normal 7.4-10.4 [facility] ([place]) Comment on above: Performed By: #### ISHAAN Quintana PREGU ####Ella [address] [place], [place] [address] Platelets Auto #/vol (Bld) 220 10 3/mcL Normal 130-400 [facility] ([place]) Comment on above: Performed By: #### ISHAAN Quintana PREGU ####Ella [place] [place], [place] [address] RBC Auto #/vol (Bld) 4.77 10 6/mcL Normal 4.20-5.40 A [facility] ([place]) Comment on above: Performed By: #### ISHAAN Quintana PREGU ####Ella [place] [place], [place] [address] WBC Auto #/vol (Bld) 10.20 10 3/mcL Normal 4.60-10.80 [facility] ([place]) Comment on above: Performed By: #### ISHAAN Quintana PREGU ####Ella [place] [place], [place] [address] CMPon 11-23-2017 Albumin/Globulin mass ratio 2.0 {ratio} Normal 1.1-2.5 [facility] ([place]) Comment on above: Performed By: #### U A, UAMICAO, PREGU ####Ella [address] [place], [place] [address] ALP enzyme act/vol 49 U/L Normal 40-135 [facility] ([place]) Comment on above: Performed By: #### U A, UAMICAO, PREGU ####Ella [address] [place], [place] [address] ALT enzyme act/vol 13 U/L Normal 10-35 [facility] ([place]) Comment on above: Performed By: #### U A, UAMICAO, PREGU ####Ella [address] [place], [place] [address] AST enzyme act/vol 14 U/L Normal 10-40 [facility] ([place]) Comment on above: Performed By: #### U A, UAMICAO, PREGU ####Ella [address] [place], [place] [address] Bili Total 0.3 mg/dL Normal 0.2-1.0 [facility] ([place]) Comment on above: Performed By: #### U A, UAMICAO, PREGU ####Ella [address] [place], [place] [address] Creatinine mass conc 0.8 mg/dL Normal 0.6-1.2 [facility] ([place]) Comment on above: Performed By: #### U A, UAMICAO, PREGU ####Ella [place] [place], [place] [address] Globulin Calculated mass conc (S) 2.5 G/dL Normal [facility] ([place] Comment on above: Performed By: #### U A, UAMICAO, PREGU ####Ella [address] [place], [place] [address] Glucose mass conc 71 mg/dL Normal 70-105 [facility] ([place] Comment on above: Performed By: #### U A, UAMICAO, PREGU ####Ella [address] [place], [place] [address] Protein mass conc 7.4 G/dL Normal 6.0-8.3 [facility] ([place] Comment on above: Performed By: #### U A, UAMICAO, PREGU ####Ella [address] [place], [place] [address] Urea nitrogen/Creatinine mass ratio 9 ratio Normal 7-27 [facility] ([place]) Comment on above: Performed By: #### U A, UAMICAO, PREGU ####Ella [address] [place], [place] [address] Albumin mass conc 4.9 G/dL Normal 3.5-5.0 [facility] ([place] Comment on above: Performed By: #### U A, UAMICAO, PREGU ####Ella [address] [place], [place] [address] Calcium mass conc 9.7 mg/dL Normal 8.4-10.2 [facility] ([place]) Comment on above: Performed By: #### U A, UAMICAO, PREGU ####Ella [address] [place], [place] [address] Chloride molar conc 102 mmol/L Normal 98-107 [facility] ([place]) Comment on above: Performed By: #### U A, UAMICAO, PREGU ####Ella [address] [place], [place] [address] CO2 molar conc 26 mmol/L Normal 22-29 [facility] ([place]) Comment on above: Performed By: #### U A, UAMICAO, PREGU ####Ella [place] [place], [place] [address] Electrolyte Balance 8.0 mEq/L Normal [facility] ([place]) Comment on above: Performed By: #### U A, UAMICAO, PREGU ####Ella [address] [place], [place] [address] Potassium molar conc 3.6 mmol/L Normal 3.5-5.1 [facility] ([place]) Comment on above: Performed By: #### U A, UAMICAO, PREGU ####Ellabelkis [address] [place], [place] [address] Sodium molar conc 136 mmol/L Normal 136-146 [facility] ([place]) Comment on above: Performed By: #### U A, UAMICAO, PREGU ####Ella [address] [place], [place] [address] Urea nitrogen mass conc 7.0 mg/dL Normal 7.0-18.0 [facility] ([place]) Comment on above: Performed By: #### U A, UAMICAO, PREGU ####Ella [address] [place], [place] [address] LIPon 11-23-2017 Lipase Level 61 IU/L Normal 8-78 [facility] ([place]) Comment on above: Performed By: #### U A, UAMICAO, PREGU ####Ella [address] [place], [place] [address] PREGUon 11-23-2017 HCG ( test) Ql (U) Negative Normal [facility] ([place]) Comment on above: Performed By: #### U A, UAMICAO, PREGU ####Ella [address] [place], [place] [address] test (u) int HCG not detected. Invalid Interpretation Code [facility] ([place]) Comment on above: Performed By: #### U A, TAMIEMICROX, PREGU ####Ella [address] [place], [place] [address] RFLUon 11-23-2017 RFLU . MICRO - MicrobiologyPROCEDURE: Rapid Influenza A+B Screen w Cult if Ind [*1]SOURCE: Nasopharyngeal Swab BODY SITE:COLLECTED DATE/TIME: 11/23/2017 20:18 EST RECEIVED DATE/TIME: 11/23/2017 20:26 ESTSTART DATE/TIME: 11/23/2017 20:26 EST FREE TEXT SOURCE:FINAL REPORTSFinal Report []Verified Date/Time/Personnel: 11/23/2017 20:55 ESTSpecimen is negative for the presence of influenza Aantigen..Specimen is negative for the presence of influenza Bantigen..Inadequate specimen collection, improper samplehandling and/or low levels of viral shedding may yielda false-negative result..The optimal specimen type for the Rapid Flu test is anasopharyngeal wash/aspirate or nasopharyngeal swab.All negative rapid tests for Flu A and Flu B will beconfirmed with a Respiratory Id Panel by PCR..Assay method employs immunofluorescence technology.Performing Locations*1: This test was performed at: [address], [address] [place] [address] ([place]) Comment on above: Performed By: #### U A, UAMICAO, PREGU ####Ella [place] [place] [address] UAon 11-23-2017 Color Nom (U) YELLOW [facility] ([place]) Comment on above: Performed By: #### U A, UAMICAO, PREGU ####Ella [place] [place] [address] Glucose mass conc (U) Negative [facility] ([place]) Comment on above: Performed By: #### U A, UAMICAO, PREGU ####[address] [place] [address] Ketones Ql (U) Negative [facility] ([place]) Comment on above: Performed By: #### U A, UAMICAO, PREGU ####[address] [place] [address] UA Appear CLEAR [facility] ([place]) Comment on above: Performed By: #### U A, UAMICAO, PREGU ####[address] [place] [address] UA Blood Negative [facility] ([place]) Comment on above: Performed By: #### U A, UAMICAO, PREGU ####Ella [place] [place] [address] UA Leuk Est TRACE [facility] ([place]) Comment on above: Performed By: #### U A, UAMICAO, PREGU ####Ella [address] [place] [address] UA Nitrite Negative [facility] ([place]) Comment on above: Performed By: #### U A, UAMICAO, PREGU ####Ella [place] [place], [place] [address] UA pH 6.5 [facility] ([place]) Comment on above: Performed By: #### U A, UAMICAO, PREGU ####Ella [address] [place], [place] [address] UA Protein Negative [facility] ([place]) Comment on above: Performed By: #### U A, UAMICAO, PREGU ####Ella [place] [place] [address] UA Spec Grav 1.020 [facility] ([place]) Comment on above: Performed By: #### U A, UAMICAO, PREGU ####Ella [address] [place] [address] UA Specimen Type Void [facility] ([place]) Comment on above: Performed By: #### U A, UAMICAO, PREGU ####Ella [place] [place] [address] UA Urobilinogen 0.2 E.U./dL [facility] ([place]) Comment on above: Performed By: #### U A, UAMICAO, PREGU ####Ella [place] [place] [address] Urobilinogen Test strip Qn (U) Negative [facility] ([place]) Comment on above: Performed By: #### U A, UAMICAO, PREGU ####Ella [place] [place] [id number] CURon 08-19-2017 CUR . MICRO - MicrobiologyPROCEDURE: Urine Culture [*1] Urine, Clean Catch BODY SITE:COLLECTED DATE/TIME: 08/17/2017 00:57 EDT RECEIVED DATE/TIME: 08/17/2017 19:56 EDTSTART DATE/TIME: 08/17/2017 19:56 EDT FREE TEXT SOURCE:FINAL REPORTSFinal Report []Verified Date/Time/Personnel: 08/19/2017 06:57 EDTNo growth at 48 hours.PRELIMINARY REPORTSPreliminary Report []Verified Date/Time/Personnel: 08/18/2017 08:29 EDTNo growth to datePerforming Locations*1: This test was performed at: [facility], [address] [place] [address], [facility] , [facility] Normal [facility] ([place] Comment on above: Performed By: #### U A, UAMICAO, PREGU ####[place] [address] [place], [place] [address] [facility] Note on 08-18-2017 [facility] Note Normal [facility] ([place]) .Auto Diffon 08-17-2017 Ammonia mass conc (P) 0.90 10 3/mcL Normal 0.15-1.00 [facility] ([place]) Comment on above: Performed By: #### C BC, ADIFF, ANEU, GFR, LIP, CMP ####Ella [address] [place], [place] [address] Basophils Auto #/vol (Bld) 0.00 10 3/mcL Normal 0.00-0.19 [facility] ([place]) Comment on above: Performed By: #### C BC, ADIFF, ANEU, GFR, LIP, CMP ####[place] [address] [place], [place] [address] Basophils/100 WBC Auto (Bld) 0.2 % Normal 0.0-2.5 [facility] ([place]) Comment on above: Performed By: #### C BC, ADIFF, ANEU, GFR, LIP, CMP ####Ella [address] [place], [place] [address] Eosinophils Auto #/vol (Bld) 0.10 10 3/mcL Normal 0.00-0.40 [facility] ([place]) Comment on above: Performed By: #### C BC, ADIFF, ANEU, GFR, LIP, CMP ####Ella [address] [place], [place] [address] Eosinophils/100 WBC Auto (Bld) 0.4 % Normal 0.0-7.0 [facility]ly [facility] ([place]) Comment on above: Performed By: #### C BC, ADIFF, ANEU, GFR, LIP, CMP ####[address] [place], [place] [address] Lymphocytes Auto #/vol (Bld) 2.90 10 3/mcL Normal 0.77-3.85 [facility] ([place]) Comment on above: Performed By: #### C BC, ADIFF, ANEU, GFR, LIP, CMP ####[address] [place], [place] [address] Lymphocytes/100 WBC Auto (Bld) 16.0 % Normal 10.0-50.0 [facility] ([place]) Comment on above: Performed By: #### C BC, ADIFF, ANEU, GFR, LIP, CMP ####[address] [place], [place] [address] Monocytes/100 WBC Auto (Bld) 4.9 % Normal 1.7-13.0 [facility] ([place]) Comment on above: Performed By: #### C BC, ADIFF, ANEU, GFR, LIP, CMP ####[address] [place], [place] [address] Neutrophils/100 WBC Auto (Bld) 78.5 % Normal 37.0-80.0 [facility] ([place]) Comment on above: Performed By: #### C BC, ADIFF, ANEU, GFR, LIP, CMP ####[address] [place], [place] [address] .GFRon 08-17-2017 GFR 111 ml/min/1.73sqm Normal [facility] ([place] Comment on above: Result Comment: GFR Population mean for , Non- Americans Ages 20-29 = 116 mL/min/1.73 sq.m. Ages 30-39 = 107 mL/min/1.73 sq.m. Ages 40-49 = 99 mL/min/1.73 sq.m. Ages 50-59 = 93 mL/min/1.73 sq.m. Ages 60-69 = 85 mL/min/1.73 sq.m. Ages 70+ = 75 mL/min/1.73 sq.m.Chronic Kidney Disease: Less than 60 mL/min/1.73 square metersEnd Stage Renal Disease: Less than 15 mL/min/1.73 square meters Performed By: #### C BC, ADIFF, ANEU, GFR, LIP, CMP ####[address] [place], [place] [address] GFR Non- >60 Normal [facility] ([place] Comment on above: Result Comment: GFR Population mean for , Non- Americans Ages 20-29 = 116 mL/min/1.73 sq.m. Ages 30-39 = 107 mL/min/1.73 sq.m. Ages 40-49 = 99 mL/min/1.73 sq.m. Ages 50-59 = 93 mL/min/1.73 sq.m. Ages 60-69 = 85 mL/min/1.73 sq.m. Ages 70+ = 75 mL/min/1.73 sq.m.Chronic Kidney Disease: Less than 60 mL/min/1.73 square metersEnd Stage Renal Disease: Less than 15 mL/min/1.73 square meters Performed By: #### C BC, ADIFF, ANEU, GFR, LIP, CMP ####[address] [place], [place] [address] .NEUABSon 08-17-2017 Neutrophil, Absolute 14.40 10 3/mcL High 2.85-6.16 [facility] [place] Comment on above: Performed By: #### C BC, ADIFF, ANEU, GFR, LIP, CMP ####[address] [place], [place] [address] .Urinalysis Microscopic (AO) on 08-17-2017 RBC Test strip #/vol (U) 0-5 Abnormal None Seen [facility] [place] Comment on above: Performed By: #### U A, UAMICAO, PREGU ####[address] [place], [place] [address] UA Bacteria 2+ /hpf Abnormal [facility] [place] Comment on above: Performed By: #### U A, UAMICAO, PREGU ####[address] [place], [place] [address] UA Mucous 1+ /hpf Normal [facility] ([place] Comment on above: Performed By: #### U A, UAMICAO, PREGU ####[address] [place], [place] [address] UA Squam Epithelial 15-25 Abnormal None Seen [facility] ([place]) Comment on above: Performed By: #### ISHAAN Quintana PREGU ####[address] [place], [place] [address] UA WBC 5-10 Abnormal None Seen [facility] [place] Comment on above: Performed By: #### ISHAAN Quintana PREGU ####[address] [place], [place] [address] CBCon 08-17-2017 Erythrocyte distribution width Auto Ratio (RBC) 12.7 % Normal 11.5-14.5 [facility] ([place] Comment on above: Performed By: #### C BC, ADIFF, ANEU, GFR, LIP, CMP ####[address] [place] [address] Hematocrit Auto Volume Fraction (Bld) 37.6 % Normal 37.0-47.0 [facility] [place] Comment on above: Performed By: #### C BC, ADIFF, ANEU, GFR, LIP, CMP ####[address] [place] [address] Hemoglobin mass conc (Bld) 12.4 G/dL Normal 12.0-16.0 [facility] ([place] Comment on above: Performed By: #### C BC, ADIFF, ANEU, GFR, LIP, CMP ####[address] [place], [place] [address] MCH Auto Entitic mass (RBC) 29.4 pg Normal 27.0-31.2 [facility] [place] Comment on above: Performed By: #### C BC, ADIFF, ANEU, GFR, LIP, CMP ####[address] [place] [id number] MCHC Auto mass conc (RBC) 32.9 G/dL Low 33.0-37.0 [facility] [place] Comment on above: Performed By: #### C BC, ADIFF, ANEU, GFR, LIP, CMP ####[address] [place] [address] MCV Auto Entitic volume (RBC) 89.3 fL Normal 80.0-94.0 [facility] [place] Comment on above: Performed By: #### C BC, ADIFF, ANEU, GFR, LIP, CMP ####[address] [place], [place] [address] Platelet mean volume Auto Entitic volume (Bld) 8.4 fL Normal 7.4-10.4 [facility] [place] Comment on above: Performed By: #### C BC, ADIFF, ANEU, GFR, LIP, CMP ####[address] [place], [place] [address] Platelets Auto #/vol (Bld) 279 10 3/mcL Normal 130-400 [facility] ([place] Comment on above: Performed By: #### C BC, ADIFF, ANEU, GFR, LIP, CMP ####[address] [place], [place] [address] RBC Auto #/vol (Bld) 4.21 10 6/mcL Normal 4.20-5.40 [facility] ([place]) Comment on above: Performed By: #### C BC, ADIFF, ANEU, GFR, LIP, CMP ####[address] [place], [place] [address] WBC Auto #/vol (Bld) 18.40 10 3/mcL High 4.60-10.80 [facility] [place] Comment on above: Performed By: #### C BC, ADIFF, ANEU, GFR, LIP, CMP ####[address] [place], [place] [address] CMPon 08-17-2017 AST enzyme act/vol 15 U/L Normal 10-40 [facility] ([place]) Comment on above: Performed By: #### C BC, ADIFF, ANEU, GFR, LIP, CMP ####[address] [place], [place] [address] ALP enzyme act/vol 56 U/L Normal 40-135 [facility] ([place] Comment on above: Performed By: #### C BC, ADIFF, ANEU, GFR, LIP, CMP ####[address] [place], [place] [address] ALT enzyme act/vol 12 U/L Normal 10-35 [facility] ([place] Comment on above: Performed By: #### C BC, ADIFF, ANEU, GFR, LIP, CMP ####[address] [place], [place] [address] Glucose mass conc 111 mg/dL High 70-105 [facility] [place] Comment on above: Performed By: #### C BC, ADIFF, ANEU, GFR, LIP, CMP ####[address] [place], [place] [address] Albumin/Globulin mass ratio 1.5 {ratio} Normal 1.1-2.5 [facility] [place] Comment on above: Performed By: #### C BC, ADIFF, ANEU, GFR, LIP, CMP ####[address] [place], [place] [address] Bili Total 0.4 mg/dL Normal 0.2-1.0 [facility] [place] Comment on above: Performed By: #### C BC, ADIFF, ANEU, GFR, LIP, CMP ####[address] [place], [place] [address] Globulin Calculated mass conc (S) 3.0 G/dL Normal [facility] [place] Comment on above: Performed By: #### C BC, ADIFF, ANEU, GFR, LIP, CMP ####[address] [place], [place] [address] Protein mass conc 7.4 G/dL Normal 6.0-8.3 [facility] [place] Comment on above: Performed By: #### C BC, ADIFF, ANEU, GFR, LIP, CMP ####[address] [place], [place] [address] Albumin mass conc 4.4 G/dL Normal 3.5-5.0 [facility] [place] Comment on above: Performed By: #### C BC, ADIFF, ANEU, GFR, LIP, CMP ####[address] [place], [place] [address] Calcium mass conc 9.7 mg/dL Normal 8.4-10.2 [facility] [place] Comment on above: Performed By: #### C BC, ADIFF, ANEU, GFR, LIP, CMP ####[address] [place], [place] [address] CO2 molar conc 27 mmol/L Normal 22-29 [facility] [place] Comment on above: Performed By: #### C BC, ADIFF, ANEU, GFR, LIP, CMP ####[address] [place], [place] [address] Creatinine mass conc 0.8 mg/dL Normal 0.6-1.2 [facility] ([place]) Comment on above: Performed By: #### C BC, ADIFF, ANEU, GFR, LIP, CMP ####[address] [place], [place] [address] Electrolyte Balance 10.0 mEq/L Normal [facility] ([place]) Comment on above: Performed By: #### C BC, ADIFF, ANEU, GFR, LIP, CMP ####[address] [place], [place] [address] Urea nitrogen mass conc 5.7 mg/dL Low 7.0-18.0 [facility] ([place] Comment on above: Performed By: #### C BC, ADIFF, ANEU, GFR, LIP, CMP ####[address] [place], [place] [address] Urea nitrogen/Creatinine mass ratio 7 ratio Normal 7-27 [facility] ([place] Comment on above: Performed By: #### C BC, ADIFF, ANEU, GFR, LIP, CMP ####[address] [place], [place] [address] Chloride molar conc 101 mmol/L Normal 98-107 [facility] ([place]) Comment on above: Performed By: #### C BC, ADIFF, ANEU, GFR, LIP, CMP ####[address] [place], [place] [address] Potassium molar conc 3.7 mmol/L Normal 3.5-5.1 [facility] ([place]) Comment on above: Performed By: #### C BC, ADIFF, ANEU, GFR, LIP, CMP ####[id number] [place], [place] [address] Sodium molar conc 138 mmol/L Normal 136-146 [facility] ([place] Comment on above: Performed By: #### C BC, ADIFF, ANEU, GFR, LIP, CMP ####[id number] [place], [place] [address] CT ABD/PELVIS W/ IV CONTRAST ONLYon 08-17-2017 CT ABD/PELVIS W/ IV CONTRAST ONLY ORIGINALClinical history: Right lower quadrant. Abdominal pain. Leukocytosis. COMPARISON: None. Axial scans were obtained through the abdomen and pelvis. Intravenous contrast was given for this examination. The scans were reviewed in axial, coronal, and sagittal planes. This exam was performed according to our departmental dose optimization program, and includes the following measures where applicable: automated exposure control, adjustment of the mAs and/or kVp according to patient size and/or exam, and an iterative reconstruction algorithm. No acute abnormality is present at the lung bases. The liver, biliary tree, pancreas, spleen, adrenal glands, kidneys, abdominal aorta, and inferior vena cava show no sign of acute abnormality. There is no sign of intestinal obstruction or inflammation. No abnormal fluid collection or free intraperitoneal air is present. The appendix is normal. No pelvic mass or abnormal fluid collection is present. Urinary bladder is normal. There are no inflammatory changes in the pelvis. The skeletal structures are unremarkable. IMPRESSION: No sign of acute abdominal or pelvic abnormality. Interpreted By: Yfn Schulz MDPreliminary Report By: Yfn Schulz MDElectronically Signed By: Yfn Schulz MD Dictated Date: 08/17/2017 12:31:11 AM Prelim Date: 08/17/2017 12:31:11 AM Sign Date: 08/17/2017 12:38:55 AM Normal [facility] [place] LIPon 08-17-2017 Lipase Level 30 IU/L Normal 8-78 [facility] [place] Comment on above: Performed By: #### C BC, ADIFF, ANEU, GFR, LIP, CMP ####[id number] [place], [place] [address] PREGUon 08-17-2017 HCG ( test) Ql (U) Negative Normal [facility] [place] Comment on above: Performed By: #### U A, UAMICAO, PREGU ####[address] [place] [address] test (u) int HCG not detected. Invalid Interpretation Code [facility] ([place] Comment on above: Performed By: #### U A, UAMICAO, PREGU ####[address] [place] [address] Patient Summary Documentson 08-17-2017 Patient Summary Documents Normal [facility] [place] UAon 08-17-2017 Color Nom (U) YELLOW Normal [facility] ([place] Comment on above: Performed By: #### U A, UAMICAO, PREGU ####[address] [place] [address] Glucose mass conc (U) Negative Normal [facility] ([place]) Comment on above: Performed By: #### U A, UAMICAO, PREGU ####E[address] [place] [address] Ketones Ql (U) Negative [facility] ([place]) Comment on above: Performed By: #### U A, UAMICAO, PREGU ####[address] [place] [address] UA Appear CLEAR Normal [facility] ([place] Comment on above: Performed By: #### U A, UAMICAO, PREGU ####[address] [place] [address] UA Blood SMALL Normal [facility] ([place] Comment on above: Performed By: #### U A, UAMICAO, PREGU ####[address] [place] [address] UA Leuk Est TRACE [facility] ([place] Comment on above: Performed By: #### U A, UAMICAO, PREGU ####[address] [place] [address] UA Nitrite Negative [facility] ([place]) Comment on above: Performed By: #### U A, UAMICAO, PREGU ####[address] [place], [place] [address] UA pH 5.5 [facility] ([place]) Comment on above: Performed By: #### U A, UAMICAO, PREGU ####[address] [place], [place] [address] UA Protein Negative [facility] ([place] Comment on above: Performed By: #### U A, UAMICAO, PREGU ####[address] [place], [place] [address] UA Spec Grav 1.015 [facility] ([place] Comment on above: Performed By: #### U A, UAMICAO, PREGU ####[address] [place], [place] [address] UA Specimen Type Void [facility] ([place]) Comment on above: Performed By: #### U A, UAMICAO, PREGU ####[address] [place], [place] [address] UA Urobilinogen 0.2 E.U./dL [facility] ([place]) Comment on above: Performed By: #### U A, UAMICAO, PREGU ####[address] [place], [place] [address] Urobilinogen Test strip Qn (U) Negative [facility] ([place]) Comment on above: Performed By: #### U A, UAMICAO, PREGU ####[address] [place], [place] [address] Vital Signs Date Time Vital Sign Value Performing Clinician Facility 05-02-2025 10: Body height 165.[address] Romulo Kemp DO Work Phone: [facility] 05-02-2025 10:29-040 Body mass index (BMI) [Ratio] 18.3 kg/m2 Dr. Romulo Kemp DO Work Phone: [facility] 05-02-2025 10:29-040 Body weight 49.[address] Romulo Kemp DO Work Phone: [facility] 05-02-2025 10:29-0400 Diastolic blood pressure 88 mm[Hg] Dr. Romulo Kemp DO Work Phone: 7(330)142-509157 [place] [address] 05-02-2025 10:29-0400 Heart rate 75 /min Dr. Romulo Kemp DO Work Phone: 0(117)837-722557 [place] [address] 05-02-2025 10:29-0400 SaO2% (BldA) [Mass fraction] 98 % Dr. Romulo Kemp DO Work Phone: 4(763)959-423157 [place] [address] 05-02-2025 10:29-0400 Systolic blood pressure 127 mm[Hg] Dr. Romulo Kemp DO Work Phone: 4(657)824-057815 [place] [address] 02-25-2025 13:36-0400 Body mass index (BMI) [Ratio] 18.1 kg/m2 Dr. Romulo Kemp DO Work Phone: 5(132)833-316857 [place] [address] 02-25-2025 13:36-0400 Body weight 49.[address] Romulo Kemp DO Work Phone: 0(592)340-842415 [place] [address] 02-25-2025 13:36-0400 Diastolic blood pressure 78 mm[Hg] Dr. Romulo Kemp DO Work Phone: 9(944)131-413657 [place] [address] 02-25-2025 13:36-0400 Systolic blood pressure 127 mm[Hg] Dr. Romulo Kemp DO Work Phone: [facility] 08-14-2024 06:58-0400 Body mass index (BMI) [Ratio] 17.81 kg/m2 Anabel Hughes PA-C Work Phone: [facility] 08-14-2024 06:58-0400 Body temperature 97.81 [degF] Anabel Hughes PA-C Work Phone: [facility] 08-14-2024 06:58-0400 Body weight 48.53 kg Anabel Hughes PA-C Work Phone: [facility] 08-14-2024 06:58-0400 Diastolic blood pressure 72 mm[Hg] Anabel Hughes PA-C Work Phone: [facility] 08-14-2024 06:58-0400 Heart rate 94 /min Anabel Hughes PA-C Work Phone: [facility] 08-14-2024 06:58-0400 Respiratory rate 16 /min Anabel Hughes PA-C Work Phone: [facility] 08-14-2024 06:58-0400 SaO2% (BldA) [Mass fraction] 97 % Anabel Hughes PA-C Work Phone: [facility] 08-14-2024 06:58-0400 Systolic blood pressure 92 mm[Hg] Anabel Hughes PA-C Work Phone: [facility] 08-03-2024 16:43-0400 Body mass index (BMI) [Ratio] 18.34 kg/m2 Emily Praisler-Wood CONSTRUCTION EQUIPMENT TECHNICIAN.LEGAL CONSULTANT Work Phone: [facility] 08-03-2024 16:43-0400 Body temperature 99 [degF] Emily Praisler-Wood CONSTRUCTION EQUIPMENT TECHNICIAN.LEGAL CONSULTANT Work Phone: [facility] 08-03-2024 16:43-0400 Body weight 50 kg Emily Praisler-Wood CONSTRUCTION EQUIPMENT TECHNICIAN.LEGAL CONSULTANT Work Phone: [facility] 08-03-2024 16:43-0400 Diastolic blood pressure 85 mm[Hg] Emily Praisler-Wood CONSTRUCTION EQUIPMENT TECHNICIAN.LEGAL CONSULTANT Work Phone: [facility] 08-03-2024 16:43-0400 Heart rate 114 /min Emily Praisler-Wood CONSTRUCTION EQUIPMENT TECHNICIAN.LEGAL CONSULTANT Work Phone: [facility] 08-03-2024 16:43-0400 Respiratory rate 18 /min Emily Praisler-Wood CONSTRUCTION EQUIPMENT TECHNICIAN.LEGAL CONSULTANT Work Phone: [facility] 08-03-2024 16:43-0400 SaO2% (BldA) [Mass fraction] 99 % Emily Praisler-Wood CONSTRUCTION EQUIPMENT TECHNICIAN.LEGAL CONSULTANT Work Phone: [facility] 08-03-2024 16:43-0400 Systolic blood pressure 125 mm[Hg] Emily Busby CONSTRUCTION EQUIPMENT TECHNICIAN.LEGAL CONSULTANT Work Phone: [facility] 06-27-2023 08:22-0400 Body height 165.[address] [facility] 06-27-2023 08:22-0400 Body mass index (BMI) [Ratio] 19.4 kg/m2 [facility] 06-27-2023 08:22-0400 Body temperature 97.1 [degF] [facility] 06-27-2023 08:22-0400 Body weight 53.[address] [facility] 06-27-2023 08:22-0400 Diastolic blood pressure 81 mm[Hg] [facility] 06-27-2023 08:22-0400 Heart rate 108 /min [facility] 06-27-2023 08:22-0400 Respiratory rate 16 /min [facility] 06-27-2023 08:22-0400 SaO2% (BldA) [Mass fraction] 100 % [facility] 06-27-2023 08:22-0400 Systolic blood pressure 126 mm[Hg] [facility] 03-15-2023 16:01-0400 Body temperature 97.5 [degF] Milady Perezk CONSTRUCTION EQUIPMENT TECHNICIAN.LEGAL CONSULTANT Work Phone: [facility] 03-15-2023 16:01-0400 Body weight 53.98 kg Milady Perezk CONSTRUCTION EQUIPMENT TECHNICIAN.LEGAL CONSULTANT Work Phone: [facility] 03-15-2023 16:01-0400 Diastolic blood pressure 68 mm[Hg] Milady Catrachita CONSTRUCTION EQUIPMENT TECHNICIAN.LEGAL CONSULTANT Work Phone: [facility] 03-15-2023 16:01-0400 Heart rate 84 /min Milady Catrachita CONSTRUCTION EQUIPMENT TECHNICIAN.LEGAL CONSULTANT Work Phone: [facility] 03-15-2023 16:01-0400 Respiratory rate 18 /min Milady Catrachita CONSTRUCTION EQUIPMENT TECHNICIAN.LEGAL CONSULTANT Work Phone: [facility] 03-15-2023 16:01-0400 SaO2% (BldA) [Mass fraction] 99 % Milady Domínguez CONSTRUCTION EQUIPMENT TECHNICIAN.LEGAL CONSULTANT Work Phone: [facility] 03-15-2023 16:01-0400 Systolic blood pressure 122 mm[Hg] Milady Domínguez CONSTRUCTION EQUIPMENT TECHNICIAN.LEGAL CONSULTANT Work Phone: [facility] Encounters Encounter Date Encounter Type Care Provider Facility Start: 05-06-2025 End: 05-06-2025 Telephone encounter Romulo Kemp DO Work Phone: [facility] [place] Comment on above: Appointment Start: 05-02-2025 End: 05-02-[address] Dustin Flowers MD -[facility] Work Phone: Start: 05-02-2025 End: 05-02-[address] Romulo Kemp DO Work Phone: -[facility] Start: 03-07-2025 End: 03-07-2025 Telephone encounter Romulo Kemp DO Work Phone: [facility] Comment on above: Referral to Endo Start: 03-06-2025 End: 03-07-2025 Telephone encounter Romulo Kemp DO Work Phone: [facility] Comment on above: Referral to Endocrin ology Start: 02-26-2025 Encounter for genera l adult medical examination without abnormal findings Suad Nascimento NP [facility] Start: 02-25-2025 End: 02-25-2025 Patient encounter procedure Kiara FIELD -[facility] Work Phone: Start: 02-25-2025 End: 02-25-2025 Patient encounter status Kiara Bacon NP-C [facility] Start: 02-25-2025 End: 02-25-2025 ambulatory Romulo Kemp Facility:[facility] Start: 02-25-2025 End: 02-25-2025 ambulatory Kiara Bacon NP Facility:[facility] Start: 02-22-2025 End: 02-22-2025 Patient encounter procedure Suad FIELD -Laboratory Work Phone: Start: 02-22-2025 End: 02-22-2025 ambulatory Romulo Kemp Facility:[facility] Start: 02-20-2025 End: 02-20-2025 ambulatory ROMULO KEMP Facility:[facility] Start: 02-20-2025 Encounter for doris l adult medical examination without abnormal findings SUAD NASCIMENTO [facility] Start: 12-21-2024 ambulatory Health Risk Assessment Facility:[facility] Start: 09-13-2024 End: 09-13-2024 Emergency department patient visit Romulo Kemp Facility:[facility] Start: 08-14-2024 End: 08-14-2024 Telephone encounter Anabel Hughes PA-C Work Phone: [facility] Comment on above: Results Start: 08-14-2024 End: 08-14-2024 Subsequent hospital visit by physician [facility] Work Phone: Radiology Comment on above: Bronchitis [J40] Start: 08-14-2024 End: 08-14-2024 ambulatory ROMULO KEMP Facility:[facility] Start: 08-14-2024 End: 08-14-2024 Patient encounter procedure Anabel Hughes PA-C Work Phone: [facility] Comment on above: Bronchitis (Primary Dx); Wheezing Start: 08-07-2024 End: 08-07-2024 Telephone encounter Roseline Soto APRN.LEGAL CONSULTANT Work Phone: [facility] Comment on above: Results Start: 08-05-2024 End: 08-05-2024 Telephone encounter Kyree Leahy APRN.LEGAL CONSULTANT Work Phone: [facility] Comment on above: Results; Orders Start: 08-03-2024 End: 08-03-2024 ambulatory ROMULO KEMP Facility:[facility] Start: 08-03-2024 End: 08-03-2024 Patient encounter procedure Emily Busby APRN.LEGAL CONSULTANT Work Phone: [facility] Comment on above: Burning with urinati on (Primary Dx); Dental infection; Bronchitis Start: 06-27-2023 End: 06-27-2023 Emergency department patient visit [facility] Work Phone: Start: 03-15-2023 End: 03-15-2023 Patient encounter procedure Milady Domínguez LEGAL CONSULTANT Work Phone: [facility] Comment on above: Strain of neck muscl e, initial encounter (Primary Dx) Start: 02-12-2022 End: 02-12-2022 Patient encounter procedure Rafita Diehl DO Work Phone: [facility] Comment on above: Strain of sternoclei domastoid muscle, initial encounter (Primary Dx) Start: 02-05-2022 End: 02-05-2022 Subsequent hospital visit by physician [facility] Work Phone: Radiology Comment on above: Acute pain of right shoulder [M25.511] Start: 07-14-2018 End: 07-14-2018 Emergency department patient visit JILLIAN MARTINEZ Facility:B Start: 11-23-2017 End: 11-24-2017 Emergency department patient visit CROW KIMMIE Facility:[facility] Start: 08-17-2017 End: 08-17-2017 Emergency department patient visit [facility] Facility:[facility] Procedures Date Procedure Procedure Detail Performing Clinician Start: 02-25-2025 Liquid based cervica l cytology screening Dr. Romulo Kemp DO Work Phone: Comment on above: NEGATIVE FOR INTRAEP ITHELIAL LESION OR MALIGNANCY.CELLULAR CHANGES ASSOCIATED WITH INFLAMMATION ARE PRESENT. This liquid based Th inPrep(R) pap test was screened withthe use of an image guided system. Start: 02-25-2025 Iadna hepatitis c qu ant & reverse hypercil core transformer assembler Dr. Romulo Kemp DO Work Phone: Comment on above: Test not performed Start: 02-25-2025 Serologic test for syphilis Dr. Romulo Kemp DO Work Phone: Start: 02-22-2025 Thyroglobulin antibo dy measurement Dr. Romulo Kemp DO Work Phone: Comment on above: Thyroglobulin Antibo dy measured by NetgenMethodologyIt should be noted that the presence of thyroglobulinantibodies may not be pathogenic nor diagnostic, especiallyat very low levels. The assay chemical instrumentation officer has found thatfour percent of individuals without evidence of thyroiddisease or autoimmunity will have positive TgAb levels upto 4 IU/mL. Start: 08-14-2024 Radiologic exam chest 2 views Anabel Hughes PA-C Work Phone: Start: 08-03-2024 Urnls dip stick/tabl et rgnt auto w/o microscopy Kyree Leahy CONSTRUCTION EQUIPMENT TECHNICIAN.LEGAL CONSULTANT Work Phone: Start: 06-27-2023 X-ray of both feet Start: 02-05-2022 Radex shoulder compl ete minimum 2 views Emily Busby CONSTRUCTION EQUIPMENT TECHNICIAN.LEGAL CONSULTANT Work Phone: Plan of Treatment Date Care Activity Detail Author Start: 09-13-2034 Urine microalbumin profile DTaP,Tdap,Td Vaccine (3 - Td or Tdap) [facility] Start: 02-20-2026 Covid-19 Vaccine ( season) Covid-19 Vaccine ( season) [facility] Comment on above: Postponed from 07/01 (Declined at this time) Start: 07-01-2025 Influenza vaccination Influenza Vacc ine (#1) [facility] Start: 07-01-2024 Covid-19 Vaccine ( season) Covid-19 Vaccine ( season) [facility] Start: 07-01-2024 Influenza vaccination Influenza Vacc ine (#1) [facility] Start: 05-03-2024 Urine microalbumin profile DTaP,Tdap,Td Vaccine (2 - Td or Tdap) [facility] Start: 07-01-2023 Influenza vaccination INFLUENZ A (Season Ended) [facility] Start: 02-15-2023 PAP TESTING PAP TESTING [facility] Start: 02-15-2023 Screening for malign ant neoplasm of cervix Cervical Cancer Screening [facility] Start: 07-01-2022 Influenza vaccination INFLUENZ A (Season Ended) [facility] Start: 2019 HPV TESTING HPV TESTING [facility] Start: 05-03-2015 Pneumococcal vaccination Pneumococcal Vaccine (2 of 2 - PCV) [facility] Start: 2008 Hepatitis B Vaccine (1 of 3 - 19+ 3-dose series) Hepatitis B Vaccine (1 of 3 - 19+ 3-dose series) [facility] Start: 2008 ONE PNEUMOVAX PRIOR TO AGE 65 ONE PNEUMOVAX PRIOR TO AGE 65 [facility] Start: 2008 Urine microalbumin profile DTAP,TDAP,TD (1 - Tdap) [facility] Start: 1995 PNEUMOCOCCAL (1 - PCV) PNEUMOCOCCAL (1 - PCV) [facility] Start: 1994 COVID-19 VACCINE (1) COVID-19 VACCIN E (1) [facility] Start: 05-26-1990 COVID-19 VACCINE (#1) COVID-19 VACCI NE (#1) [facility] Start: 1989 HEPATITIS B (1 of 3 - 3-dose series) HEPATITIS B (1 of 3 - 3-dose series) [facility] Bacteria identified in Urine by Culture URINE CULTURE Microbiology Routine Burning with urination Ordered: 08/03/2024 [facility] Work Phone: Comment on above: Ordered: 08/03/2024 Patient Education ED Foot Contus ion ED Crush Injury, Foot/Toe [facility] Work Phone: Patient referral [facility] Work Phone: T4 free measurement [facility] Thyroid stimulating hormone measurement [facility] Immunizations Immunization Date Immunization Notes Care Provider Marilin fonseca 12-21-2024 influenza, seasonal, injectable, preservative free Dr. Romulo Kemp DO Work Phone: [facility] 12-21-2024 influenza virus vaccine, unspecified formulation Romulo Kemp DO Work Phone: [facility] 09-13-2024 tetanus toxoid, redu david diphtheria toxoid, and acellular pertussis vaccine, adsorbed Dr. Romulo Kemp DO Work Phone: [facility] 10-26-2017 influenza virus vaccine, unspecified formulation Inge Medford Work Phone: [facility] 08-07-2014 influenza, seasonal, injectable Rafita Diehl V DO Work Phone: [facility] Work Phone: 05-03-2014 pneumococcal vaccine , unspecified formulation [facility] 05-03-2014 tetanus toxoid, redu david diphtheria toxoid, and acellular pertussis vaccine, adsorbed [facility] 09-08-2010 influenza virus vaccine, unspecified formulation Rafita Diehl V, DO Work Phone: [facility] Work Phone: Payers Date Payer Category Payer Unknown [id number] 2024 Self-pay [id number] 2023 Self-pay [id number] 2021 Private Health Insurance [facility] [id number] 2021-Present [phone] [facility] [id number] [place] [address] Open Access [id number] 2021 Private Health Insurance [id number] 2017 Private Health Insurance [id number] Unknown [id number] Unknown [id number] 62 Unknown [id number] 62 Unknown [id number] 62 Unknown [id number] 62 Unknown [id number] 62 Unknown [id number] 62 Social History Date Type Detail Facility Start: 09-07-2016 End: 08-03-2024 Tobacco smoking status NHIS Smokes tobacco daily [facility] History of tobacco use Cigarette Smoker [facility] Work Phone: Start: 02-12-2022 End: 02-20-2025 Alcohol intake Current drinker of alcohol (finding) [facility] Start: 09-07-2016 History SDOH Alcohol Comment Rarely [facility] Start: 1990 Sex Assigned At Not on file [facility] Start: 01-26-2022 End: 02-12-2022 Exposure to SARS-CoV-2 (event) Not sure [facility] Start: 09-07-2016 End: 08-14-2024 Cigarettes smoked current (pack per day) - Reported 0.5 [facility] Start: 09-07-2016 End: 08-03-2024 Tobacco use and exposure Smokeless tobacco non-user [facility] Work Phone: Start: 06-27-2023 Tobacco smoking status NHIS Unknown if ever smoked [facility] Start: 06-27-2023 Rare [facility] Start: 10-10-2020 None [facility] Start: 06-27-2023 Homeless [facility] Start: 06-24-2020 Cigarettes [facility] Start: 1989 Sex Assigned At Female W [facility] Start: 02-05-2022 End: 08-14-2024 Tobacco use panel [facility] Work Phone: National Score (1-100), lower number is lower risk Not on file [facility] NEGATED: Highlighted row [facility] Functional Status Date Assessment Result Facility 08-07-2014 Are you deaf, or do you have serious difficulty hearing No 08/07/2014 2:24 PM EDT Monica Ventura LPN No [facility] 08-07-2014 Are you blind, or do you have serious difficulty seeing, even when wearing glasses No 08/07/2014 2:24 PM SHENT Monica Ventura LPN No [facility] 08-07-2014 Do you have serious difficulty walking or climbing stairs No 08/07/2014 2:24 PM Monica Perez LPN No [facility] 08-07-2014 Do you have difficul ty dressing or bathing No 08/07/2014 2:24 PM EDT Monica Ventura LPN No [facility] 08-07-2014 Because of a physica l, mental, or emotional condition, do you have difficulty doing errands alone such as visiting a physician's office or shopping No 08/07/2014 2:24 PM EDT Monica Ventura LPN No [facility] Mental Status Date Assessment Result Facility 08-07-2014 Because of a physica l, mental, or emotional condition, do you have serious difficulty concentrating, remembering, or making decisions No 08/07/2014 2:24 PM EDT Monica Ventura LPN No [facility] Clinical Notes 02-18-2014 to 05-06-2025 Telephone Encounter - Carri Brown - 05/06/2025 4:08 PM EDTTelephone Encounter - Carri Brown - 05/06/2025 4:08 PM EDTTelephone Encounter - Martha Castaneda MA - 03/07/2025 3:36 PM EDT Note Date & Type Note Facility 05-06-2025 Telephone encount er Note Lvm for pt stating that she has a referral to see Endocrinology. Provided the number to call and schedule when ready. Will send letter in mail. [facility] 05-06-2025 Miscellaneous Notes Formattin g of this note might be different from the original. Lvm for pt stating that she has a referral to see Endocrinology. Provided the number to call and schedule when ready. Will send letter in mail. documented in this encounter [facility] 03-07-2025 Telephone encount er Note Sent to pt via [employer] message Martha Castaneda MA [facility] 03-07-2025 Miscellaneous Notes Formattin g of this note might be different from the original. Sent to pt via message Martha Castaneda MA I agree with this and stated the same in the previous message. Please let patient know. Suad Nascimento APRN.CNP [facility] reports they received a referral from [facility] provider for patient to see Endo due to family history of thyroid disease. States if labs or documentation do not show a valid reason for referral for patient to see Endo they will not see patient. They are able to view patient's thyroid labs and state they are normal. Pt does not take medications that would qualify for referral to endo. documented in this encounter [facility] 03-07-2025 Telephone encount er Note I agree with this and stated the same in the previous message. Please let patient know. Suad Nascimento APRN.CNP [facility] Work Phone: 03-07-2025 Telephone encount er Note [facility] reports they received a referral from [facility] provider for patient to see Endo due to family history of thyroid disease. States if labs or documentation do not show a valid reason for referral for patient to see Endo they will not see patient. They are able to view patient's thyroid labs and state they are normal. Pt does not take medications that would qualify for referral to endo. [facility] 03-07-2025 Telephone encount er Note Pt informed. Consult faxed per pt request Martha Castaneda MA [facility] 03-07-2025 Miscellaneous Notes Formattin g of this note might be different from the original. Pt informed. Consult faxed per pt request Martha Castaneda MA I can send her a consult if she would like. However, the elevated labs are not significantly elevated, and all they show is that she is at increased risk to develop hypothyroidism. This is not indicative of a thyroid problem. Endocrinology consult placed, please fax per her request if she would still like to see Dr. Flowers. Suad Nascimento APRN.CNP See thyroid labs attached-- Scan on 03/06/2025 8:35 AM by Provider, Cristhian, JOE: Miscellaneous Lab Patient is requesting a referral to Endocrinology to see Dr. Flowers after her thyroid labs came back high. Please review and advise patient. Margaret Peraza March 06, 2025 1:46 PM documented in this encounter [facility] 03-07-2025 Telephone encount er Note I can send her a consult if she would like. However, the elevated labs are not significantly elevated, and all they show is that she is at increased risk to develop hypothyroidism. This is not indicative of a thyroid problem. Endocrinology consult placed, please fax per her request if she would still like to see Dr. Flowers. Suad Nascimento APRN.CNP [facility] 03-06-2025 Telephone encount er Note See thyroid labs attached-- Scan on 03/06/2025 8:35 AM by Provider, JOE Morrow: Miscellaneous Lab [facility] 03-06-2025 Telephone encount er Note Patient is requesting a referral to Endocrinology to see Dr. Flowers after her thyroid labs came back high. Please review and advise patient. 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 Author Type: Nurse Practitioner Type: Progress Notes Filed: 02/20/2025 14:59 Note Text: Chief Complaint Patient presents with: Insurance Physical: Rash on chest and left thigh x 6 months, unsteady, tunnel vision, heart palp, flushed with activity x 1 month HPI Ashley Brown is a 34 year old female who presents here today for Above Complaints.. Reports a woozy feeling- Pt reports feeling woozy and feels a warm/cool sensation throughout her whole body similar to the feeling of having a glass of wine. Her skin on her chest and cheeks also becomes red which this happens. This is triggered by walking fast for short distances. Siting down and resting helps. This started a month ago and has been persistent. Denies SOB, chest pain, palpitations, vertigo, syncope. Pt is concerned for her thyroid d/t strong family history of thyroid disease. Skin rash- Couple months ago she noticed small flat patches on her chest. They get red when taking a hot shower. Does not itch or cause pain or discomfort in any way, not spreading from what she can tell. Past medical history, appointments, medications, allergies reviewed. Previous Medical History PAST MEDICAL HISTORY Diagnosis Date Abnormal Pap smear of cervix FRACTURE WRIST AGE 6 Herpes simplex without mention of complication PANCREATITIS 2010 Recurrent major depression in partial remission (HCC) 07/17/2015 ? hypomanic Previous Surgical History PAST SURGICAL HISTORY Procedure Laterality Date COLONOSCOPY FLX DX W/COLLJ SPEC WHEN PFRMD 11/22/2017 Colonoscopy DILATION AND CURETTAGE DXAND/THER NONOBSTETRIC 2013 Dilation AND curettage ESOPHAGOGASTRODUODENOSCOPY TRANSORAL DIAGNOSTIC 11/22/2017 EGD LAPAROSCOPY SURG CHOLECYSTECTOMY 2011 Cholecystectomy, lap Family History FAMILY HISTORY Problem Relation Age of Onset Diabetes Mother COPD Mother Thyroid Mother Lipids Father Heart Father Patient Allergies ALLERGIES Allergen Reactions Seasonal Allergies Other: See Comments RUNNY NOSE, ITCHY EYES Tree Nuts Hives Current Medications Current Outpatient Medications on File Prior to Visit Medication Sig albuterol HFA (PROVENTIL HFA, VENTOLIN HFA) 90 mcg/actuation inhaler Inhale 2 Puffs as instructed every 4 hours as needed. lorazepam (ATIVAN ORAL) Take by mouth. hyoscyamine SR (SYMAX-SR) 0.375 mg 12 hr tablet Take 1 tablet by mouth twice daily. (Patient not taking: Reported on 04/20/2019 ) acetaminophen (TYLENOL) 325 mg tablet Take 650 mg by mouth every 6 hours as needed. No current facility-administered medications on file prior to visit. Social History Social History Tobacco Use Smoking status: Every Day Current packs/day: 0.50 Average packs/day: 0.5 packs/day for 9.0 years (4.5 ttl pk-yrs) Types: Cigarettes Smokeless tobacco: Never Vaping Use Vaping status: Never Used Substance Use Topics Alcohol use: Yes Comment: Rarely Drug use: No Review of Symptoms REVIEW OF SYSTEMS See HPI, otherwise negative EXAM: LMP 05/01/2020 General Appearance: Well appearing, alert, in no acute distress, well-hydrated, well nourished.. Skin: Positives: small, round flat pink-colored patches scattered across chest- approximately 0.5cm in diameter Ears: External ears normal, canals clear. Oropharynx: Lips, mucosa, and tongue normal, teeth and gums normal, oropharynx normal. Neck: Negative findings: no asymmetry, masses, or scars, Positive findings: thyroid: normal to inspection and palpation and tender. Lungs: Lungs clear to auscultation. No wheezing, rhonchi, rales.. Heart: RRR without murmur, gallop, or rubs. No ectopy. Abdomen: Normal abdominal exam, Abdomen soft, non-tender. Bowel sounds normal. No masses, organomegaly. Extremities: No deformities, edema, skin discoloration, clubbing or cyanosis. Good capillary refill. . Peripheral Pulses: Normal. Psychiatric: pleasant, cooperative Health Maintenance List Hepatitis B Vaccine(1 of 3 - 19+ 3-dose series) Never done Pneumococcal Vaccine(2 of 2 - PCV) due on 05/03/2015 Cervical Cancer Screening due on 02/15/2023 Covid-19 Vaccine(2023- season) Never done DTaP,Tdap,Td Vaccine(3 - Td or Tdap) due on 09/13/2034 Influenza Vaccine Completed Hepatitis C Screening Completed HIV Screening Completed Data reviewed ASSESSMENT/PLAN: 1. Well adult exam - ICD9: V70.0, ICD10: Z00.00 (primary diagnosis) - THYROID STIMULATING HORMONE - T3 - T4 FREE/FREE THYROXINE - THYROGLOBULIN ANTIBODY - THYROID PEROXIDASE ANTIBODY 2. Family history of thyroid disease - ICD9: V18.19, ICD10: Z83.49 - THYROID STIMULATING HORMONE - T3 - T4 FREE/FREE THYROXINE - THYROGLOBULIN ANTIBODY - THYROID PEROXIDASE ANTIBODY - COMPLETE BLOOD COUNT - COMPREHENSIVE METABOLIC PANEL - VITAMIN D 25 HYDROXY 3. Encounter for vitamin deficiency screening - ICD9: V77.99, ICD10: Z13.21 (more content not included)...[facility]10-15-2024 Telephone encounter Note* Telephone Encounter - Juvencio Holbrook LPN - 08/14/2024 9:15 AM EDT Pt notified of same. Juvencio Holbrook LPN [facility]10-15-2024 Miscellaneous Notes* Telephone Encounter - Juvencio Holbrook LPN - 08/14/2024 9:15 AM EDT Pt notified of same. Juvencio Holbrook LPN * Telephone Encounter - Anabel Hughes PA-C - 08/14/2024 8:41 AM EDT Xray neg. Continue as we discussed. Anabel Hughes PA-C [facility] Telephone encounter Note * Telephone Encounter - Anabel Hughes PA-C - 08/14/2024 8:41 AM EDT Xray neg. Continue as we discussed. Anabel Hughes PA-C [facility]10-15-2024 History of Present illness Narrative* Felicity Boogie RT(R) - 08/14/2024 8:00 AM EDT Radiology Service Progress Note PATIENT NAME: Ashley Brown DATE OF SERVICE: August 14, 2024 TIME: 8:03 AM PATIENT IDENTITY VERIFICATION COMPLETED USING TWO (2) IDENTIFIERS: Name and Date of confirmedby patient verbally. FALL SCREENING: Has the patient had 2 falls in the last year or 1 fall with injury or currently using an Ambulatory Assistive Device (Walker, Cane, Wheelchair, Crutches, etc.)? No PATIENT GENDER DATA: Female. status: : No status: NO. PATIENT RELEVANT IMPLANT DATA REVIEWED: Not Applicable PATIENT PRESENTS WITH AN IMPLANTABLE OR ATTACHED TUMOR REGISTRAR: No RADIOLOGY DEPARTMENT: General X-ray: Exam(s) Completed: Chest X-Ray PERIPHERAL IV DATA: Not applicable SIGNED BY: RT Lorelei(R) August 14, 2024 8:03 AM documented in [facility]24 NoteHNO ID: [id number] Author: FELICITY BOOGIE RT(R) Service: Radiology Author Type: Technologist Type: Progress Notes Filed: 08/14/2024 08:14 Note Text: Radiology Service Progress Note PATIENT NAME: Ashley Brown DATE OF SERVICE: August 14, 2024 TIME: 8:03 AM PATIENT IDENTITY VERIFICATION COMPLETED USING TWO (2) IDENTIFIERS: Name and Date of confirmed by patient verbally. FALL SCREENING: Has the patient had 2 falls in the last year or 1 fall with injury or currently using an Ambulatory Assistive Device (Walker, Cane, Wheelchair, Crutches, etc.)? No PATIENT GENDER DATA: Female. status: : No status: NO. PATIENT RELEVANT IMPLANT DATA REVIEWED: Not Applicable PATIENT PRESENTS WITH AN IMPLANTABLE OR ATTACHED TUMOR REGISTRAR: No RADIOLOGY DEPARTMENT: General X-ray: Exam(s) Completed: Chest X-Ray PERIPHERAL IV DATA: Not applicable SIGNED BY: RT Lorelei(Alvin) August 14, 2024 8:03 [facility]10-15-2024 NoteHNO ID: [id number] Author: ANABEL HUGHES PA-C Service: ? Author Type: Physician Dispatcher [employer] Type: Progress Notes Filed: 08/14/2024 07:32 Note Text: Chief Complaint Patient presents with: Recheck: Was seen in [facility]. Still having cough and headache and shortness breath HPI Ashley Brown is a 33 year old female who presents here today for Above Complaints.. Still has dry cough Last fever was 4 days ago. Does feel slightly better. States she is starting to feel chest tightness again. Past medical history, appointments, medications, allergies reviewed. Previous Medical History PAST MEDICAL HISTORY Diagnosis Date Abnormal Pap smear of cervix FRACTURE WRIST AGE 6 Herpes simplex without mention of complication PANCREATITIS 2011 Recurrent major depression in partial remission (HCC) 07/17/2015 ? hypomanic Previous Surgical History PAST SURGICAL HISTORY Procedure Laterality Date COLONOSCOPY FLX DX W/COLLJ SPEC WHEN PFRMD 11/22/2017 Colonoscopy DILATION AND CURETTAGE DXAND/THER NONOBSTETRIC 2012 Dilation AND curettage ESOPHAGOGASTRODUODENOSCOPY TRANSORAL DIAGNOSTIC 11/22/2017 EGD LAPAROSCOPY SURG CHOLECYSTECTOMY 2011 Cholecystectomy, lap Family History FAMILY HISTORY Problem Relation Age of Onset Diabetes Mother COPD Mother Thyroid Mother Lipids Father Heart Father Patient Allergies ALLERGIES Allergen Reactions Seasonal Allergies Other: See Comments RUNNY NOSE, ITCHY EYES Tree Nuts Hives Current Medications Current Outpatient Medications on File Prior to Visit Medication Sig lorazepam (ATIVAN ORAL) Take by mouth. acetaminophen (TYLENOL) 325 mg tablet Take 650 mg by mouth every 6 hours as needed. cyclobenzaprine (FLEXERIL) 10 mg tablet Take 1 tablet by mouth twice daily as needed for muscle spasm. (Patient not taking: Reported on 10/22/2023) meclizine (ANTIVERT) 12.5 mg tab Take 1 tablet by mouth every 6 hours as needed (dizziness). (Patient not taking: Reported on 07/10/2021 ) nicotine (NICODERM) 14 mg/24 hr Apply 1 Patch as directed every 24 hours. (Patient not taking: Reported on 07/10/2021 ) ondansetron orally disintegrating (ZOFRAN ODT) 8 mg disintegrating tablet Take one tab 30 min prior to taking azithromycin. Can repeat in 8 hrs if needed. (Patient not taking: Reported on 10/29/2020 ) hydrOXYzine HCl (ATARAX) 25 mg tablet Take 1 tablet by mouth every 6 hours as needed for Itching/Rash. (Patient not taking: Reported on 10/29/2020 ) guaiFENesin (MUCINEX) 600 mg 12 hr tablet Take 2 tablets by mouth twice daily. (Patient not taking: Reported on 04/20/2019 ) benzonatate (TESSALON PERLES) 100 mg capsule Take 1 capsule by mouth three times daily as needed. (Patient not taking: Reported on 04/20/2019 ) albuterol HFA (PROVENTIL HFA, VENTOLIN HFA) 90 mcg/actuation inhaler Inhale 2 Puffs as instructed every 4 hours as needed. (Patient not taking: Reported on 04/20/2019 ) nystatin (MYCOSTATIN) 100,000 unit/mL suspension Take 5 mL by mouth four times daily. 1tsp swish in mouth for several minutes, then swallow (or expectorate) 4 times daily until gone. (Patient not taking: Reported on 12/06/2018 ) estradiol (ESTRACE) 1 mg tablet Take 1 tablet by mouth once daily for 10 days. (Patient not taking: Reported on 12/06/2018 ) traMADol (ULTRAM) 50 mg tablet Take 1 tablet by mouth as needed for Pain for up to 7 days. (Patient not taking: Reported on 07/07/2021) Food Supplement, Lactose-Free (ENSURE ACTIVE HIGH PROTEIN) liqd Take 237 mL by mouth twice daily. (Patient not taking: Reported on 04/20/2019 ) colestipol (COLESTID) 1 gram tablet Take 1 tablet by mouth once daily. (Patient not taking: Reported on 04/20/2019 ) hyoscyamine SR (SYMAX-SR) 0.375 mg 12 hr tablet Take 1 tablet by mouth twice daily. (Patient not taking: Reported on 04/20/2019 ) ondansetron orally disintegrating (ZOFRAN ODT) 4 mg disintegrating tablet DISSOLVE ONE TABLET BY MOUTH EVERY 8 HOURS NEEDED FOR NAUSEA (Patient not taking: Reported on 05/15/2021) sucralfate (CARAFATE) 1 gram tablet TAKE 1 PO 30 MINUTES BEFORE MEALS AND AT BEDTIME. (Patient not taking: Reported on 12/06/2018 ) fluticasone (FLONASE) 50 mcg/actuation nasal spray Use 2 Sprays in each nostril once daily. Rinse mouth after use. (Patient not taking: Reported on 04/20/2019 ) No current facility-administered medications on file prior to visit. Social History Social History Tobacco Use Smoking status: Every Day Current packs/day: 0.50 Average packs/day: 0.5 packs/day for 9.0 years (4.5 ttl pk-yrs) Types: Cigarettes Smokeless tobacco: Never Vaping Use Vaping status: Never Used Substance Use Topics Alcohol use: Yes Comment: Rarely Drug use: No Review of Symptoms REVIEW OF SYSTEMS See hpi EXAM: BP 92/72 (BP Site: Left Arm, BP Position: Sitting, BP Cuff Size: Regular Adult) Pulse 94 Temp 36.6 ?C (97.8 ?F) Resp 16 Wt 48.5 kg (107 lb) LMP 05/01 (more content not included)...[facility]10-15-2024 History of Present illness Narrative* Anabel Hughes PA-C - 08/14/2024 7:11 AM EDT Chief Complaint Patient presents with: Recheck: Was seen in [facility]. Still having cough and headache and shortness breath HPI Ashley Brown is a 33 year old female who presents here today for Above Complaints.. Still has dry cough Last fever was 4 days ago. Does feel slightly better. States she is starting to feel chest tightness again. Past medical history, appointments, medications, allergies reviewed. Previous Medical History PAST MEDICAL HISTORY Diagnosis Date Abnormal Pap smear of cervix FRACTURE WRIST AGE 6 Herpes simplex without mention of complication PANCREATITIS 2010 Recurrent major depression in partial remission (HCC) 07/17/2015 ? hypomanic Previous Surgical History PAST SURGICAL HISTORY Procedure Laterality Date COLONOSCOPY FLX DX W/COLLJ SPEC WHEN PFRMD 11/22/2017 Colonoscopy DILATION & CURETTAGE DX&/THER NONOBSTETRIC 2013 Dilation & curettage ESOPHAGOGASTRODUODENOSCOPY TRANSORAL DIAGNOSTIC 11/22/2017 EGD LAPAROSCOPY SURG CHOLECYSTECTOMY 2010 Cholecystectomy, lap Family History FAMILY HISTORY Problem Relation Age of Onset Diabetes Mother COPD Mother Thyroid Mother Lipids Father Heart Father Patient Allergies ALLERGIES Allergen Reactions Seasonal Allergies Other: See Comments RUNNY NOSE, ITCHY EYES Tree Nuts Hives Current Medications Current Outpatient Medications on File Prior to Visit Medication Sig lorazepam (ATIVAN ORAL) Take by mouth. acetaminophen (TYLENOL) 325 mg tablet Take 650 mg by mouth every 6 hours as needed. cyclobenzaprine (FLEXERIL) 10 mg tablet Take 1 tablet by mouth twice daily as needed for muscle spasm. (Patient not taking: Reported on 10/22/2023) meclizine (ANTIVERT) 12.5 mg tab Take 1 tablet by mouth every 6 hours as needed (dizziness). (Patient not taking: Reported on 07/10/2021 ) nicotine (NICODERM) 14 mg/24 hr Apply 1 Patch as directed every 24 hours. (Patient not taking: Reported on 07/10/2021 ) ondansetron orally disintegrating (ZOFRAN ODT) 8 mg disintegrating tablet Take one tab 30 min priorto taking azithromycin. Can repeat in 8 hrs if needed. (Patient not taking: Reported on 10/29/2020 ) hydrOXYzine HCl (ATARAX) 25 mg tablet Take 1 tablet by mouth every 6 hours as needed for Itching/Rash. (Patient not taking: Reported on 10/29/2020 ) guaiFENesin (MUCINEX) 600 mg 12 hr tablet Take 2 tablets by mouth twice daily. (Patient not taking:Reported on 04/20/2019 ) benzonatate (TESSALON PERLES) 100 mg capsule Take 1 capsule by mouth three times daily as needed. (Patient not taking: Reported on 04/20/2019 ) albuterol HFA (PROVENTIL HFA, VENTOLIN HFA) 90 mcg/actuation inhaler Inhale 2 Puffs as instructed every 4 hours as needed. (Patient not taking: Reported on 04/20/2019 ) nystatin (MYCOSTATIN) 100,000 unit/mL suspension Take 5 mL by mouth four times daily. 1tsp swish inmouth for several minutes, then swallow (or expectorate) 4 times daily until gone. (Patient not taking: Reported on 12/06/2018 ) estradiol (ESTRACE) 1 mg tablet Take 1 tablet by mouth once daily for 10 days. (Patient not taking:Reported on 12/06/2018 ) traMADol (ULTRAM) 50 mg tablet Take 1 tablet by mouth as needed for Pain for up to 7 days. (Patientnot taking: Reported on 07/07/2021) Food Supplement, Lactose-Free (ENSURE ACTIVE HIGH PROTEIN) liqd Take 237 mL by mouth twice daily. (Patient not taking: Reported on 04/20/2019 ) colestipol (COLESTID) 1 gram tablet Take 1 tablet by mouth once daily. (Patient not taking: Reported on 04/20/2019 ) hyoscyamine SR (SYMAX-SR) 0.375 mg 12 hr tablet Take 1 tablet by mouth twice daily. (Patient not taking: Reported on 04/20/2019 ) ondansetron orally disintegrating (ZOFRAN ODT) 4 mg disintegrating tablet DISSOLVE ONE TABLET BY MOUTH EVERY 8 HOURS NEEDED FOR NAUSEA (Patient not taking: Reported on 05/15/2021) sucralfate (CARAFATE) 1 gram tablet TAKE 1 PO 30 MINUTES BEFORE MEALS AND AT BEDTIME. (Patient not taking: Reported on 12/06/2018 ) fluticasone (FLONASE) 50 mcg/actuation nasal spray Use 2 Sprays in each nostril once daily. Rinse mouth after use. (Patient not taking: Reported on 04/20/2019 ) No current facility-administered medications on file prior to visit. Social History Social History Tobacco Use Smoking status: Every Day Current packs/day: 0.50 Average packs/day: 0.5 packs/day for 9.0 years (4.5 ttl pk-yrs) Types: Cigarettes Smokeless tobacco: Never Vaping Use Vaping status: Never Used Substance Use Topics Alcohol use: Yes Comment: Rarely Drug use: No Review of Symptoms REVIEW OF SYSTEMS See hpi EXAM: BP 92/72 (BP Site: Left Arm, BP Position: Sitting, BP Cuff Size: Regular Adult) Pulse 94 Temp 36.6 C (97.8 F) Resp 16 Wt 48.5 kg (107 lb) LMP 05/01/2020 SpO2 97% BMI 17.81 kg/m General Appearance: Well appearing, alert, in no acute distress, well-hydrated, well nourished.. Ears: External ears normal, canals clear. Nose/Sinuses: Nares normal, septum midline, mucosa normal, no drainage or sinus tenderness. Oropharynx: Lips, mucosa, and tongue normal, teeth and gums normal, oropharynx normal. Neck: Supple, no adenopathy; thyroid symmetric, normal size, no bruits. Lungs: Lungs clear to auscultation. No wheezing, rhonchi, rales.. Heart: RRR without murmur, gallop, or rubs. No ectopy. Health Maintenance List Hepatitis B Vaccine(1 of 3 - 19+ 3-dose series) Never done Pneumococcal Vaccine(2 of 2 - PCV) due on 05/03/2015 Cervical Cancer Screening due on 02/15/2023 DTaP,Tdap,Td Vaccine(2 - Td or Tdap) due on 05/03/2024 Influenza Vaccine(1) due on 07/01/2024 Covid-19 Vaccine(1 - 2023- season) Never done Hepatitis C Screening Completed HIV Screening Completed HPV Vaccine Aged Out Data reviewed ASSESSMENT/PLAN: 1. Bronchitis - ICD9: 490, ICD10: J40 (primary diagnosis) Will start duricef Check xray - XR CHEST 2V FRONTAL/LAT 2. Wheezing - ICD9: 786.07, ICD10: R06.2 As above - ALBUTEROL SULFATE HFA 90 MCG/ACTUATION AEROSOL INHALER Patient is past due routine care with PCP. Anabel Hughes PA-C [facility] Telephone encounter Note * Telephone Encounter - Roseline Soto APRN.CNP - 08/07/2024 3:59 PM EDT Patient reaches out. Endorses that her chid is being seen presently . Dx with pneumonia. Her daughter last week I don't feel the ATB is working Will change to Zithromax. Patient aware. [facility] Miscellaneous Notes* Telephone Encounter - Roseline Soto APRN.CNP - 08/07/2024 3:59 PM EDT Patient reaches out. Endorses that her chid is being seen presently . Dx with pneumonia. Her daughter last week I don't feel the ATB is working Will change to Zithromax. Patient aware. [facility] Telephone encounter Note * Telephone Encounter - Afua Woo MA - 08/05/2024 1:53 PM EDT Patient given results and verbalized understanding of instructions given. Afua Woo MA [facility]10-[facility] Miscellaneous Notes* Telephone Encounter - Afua Woo MA - 08/05/2024 1:53 PM EDT Patient given results and verbalized understanding of instructions given. Afua Woo MA * Telephone Encounter - Kyree Leahy APRN.CNP - 08/05/2024 11:42 AM EDT Urinary culture came back and patient needs her antibiotic changed. Going to change the antibiotic to Macrobid twice a day for 5 days. Patient can continue taking the other antibiotic for upper respiratory stuff. If no improvement follow-up with PCP. documented in [facility] Telephone encounter Note * Telephone Encounter - Kyree Leahy APRN.CNP - 08/05/2024 11:42 AM EDT Urinary culture came back and patient needs her antibiotic changed. Going to change the antibiotic to Macrobid twice a day for 5 days. Patient can continue taking the other antibiotic for upper respiratory stuff. If no improvement follow-up with PCP. [facility]-04[facility] Instructions* Patient Instructions* Emily Busby APRN.CNP - 08/03/2024 5:06 PM EDT ASSESSMENT/PLAN: 1. Burning with urination - ICD9: 788.1, ICD10: R30.0 (primary diagnosis) acute - UA positive for nitrates - Send urine for culture - UA DIP, URINE (POC) - URINE CULTURE 2. Dental infection - ICD9: 522.4, ICD10: K04.7 - AMOXICILLIN 875 MG-POTASSIUM CLAVULANATE 125 MG TABLET 3. Bronchitis - ICD9: 490, ICD10: J40 - PREDNISONE 20 MG TABLET - Follow-up with your PCP in 3-5 days if symptoms have not improved or sooner if symptoms worsen - Discussed red flags and need for immediate medical evaluation if any occur. - Discussed supportive care treatment with fluids, rest and analgesia. - Discussed expected course of illness Emily Busby APRN.CNP ACUTE BRONCHITIS: You have acute bronchitis. This means the airway passages in your lungs are inflamed. Bronchitis may be caused by viruses or bacteria. Inhaling cigarette smoke will always make it worse. Exposure to irritating chemicals or second hand smoke as well as allergies can contribute to bronchitis. Repeat episodes of bronchitis may cause lifelong lung problems. Acute bronchitis is usually treated with rest, fluids, cough medicine, and possibly antibiotics or inhaled medicine to open up the small airways. It is very important that you avoid smoke and drink increased amounts of fluids. A cool air vaporizer can help thin bronchial secretions. This makes it easier to cough and clear your chest. If you are a cigarette smoker, consider using nicotine gum or skin patches to help you withdraw. Recovery from bronchitis is often slow, but you should start feeling better after 2-3 days of treatment. Please call your doctor or return here if you have any of the following symptoms: Increased fever, chills, or chest pain. Severe shortness of breath or bloody sputum. Do not improve after 3 days of proper treatment. documented in this encounterW[facility]10-04-[facility]24 NoteHNO ID: [id number] Author: EMILY BUSBY APRN.DAVID Service: ? Author Type: Nurse Practitioner Type: Progress Notes Filed: 08/03/2024 17:08 Note Text: Subjective UTI Associated symptoms include urgency. Pertinent negatives include no chills, no nausea and no vomiting. Cough Associated symptoms include shortness of breath and wheezing. Pertinent negatives include no chills and no sore throat. Ashley Brown is a 33 year old female who presents with cough x 1 month, feels like she is unable to cough up anything, chest feels tight with cough. She has not had a fever. Cough is generally dry. She has has some shortness of breath. She denies any known sick contacts. She also notes having cloudy urine, urgency, and dysuria since this morning. Denies fever. No back pain today. She also notes finding a small abscess above her top teeth. One opened and drained yesterday but she is still having some pain in the area. She feels like another one is developing. She notes poor dentition due to a medication she used to take. Review of Systems Constitutional: Negative for chills and fever. HENT: Positive for congestion (runny nose that started today). Negative for sore throat. Respiratory: Positive for cough, shortness of breath and wheezing. Negative for sputum production. Cardiovascular: Negative. Gastrointestinal: Negative for abdominal pain, nausea and vomiting. Genitourinary: Positive for dysuria and urgency. Musculoskeletal: Negative for back pain. BP 125/85 Pulse 114 Temp 37.2 ?C (99 ?F) Resp 18 Wt 50 kg (110 lb 3.7 oz) LMP 05/01/2020 SpO2 99% BMI 18.34 kg/m? PAST MEDICAL HISTORY Diagnosis Date Abnormal Pap smear of cervix FRACTURE WRIST AGE 6 Herpes simplex without mention of complication PANCREATITIS 2010 Recurrent major depression in partial remission (HCC) 07/17/2015 ? hypomanic PAST SURGICAL HISTORY Procedure Laterality Date COLONOSCOPY FLX DX W/COLLJ SPEC WHEN PFRMD 11/22/2017 Colonoscopy DILATION AND CURETTAGE DXAND/THER NONOBSTETRIC 2012 Dilation AND curettage ESOPHAGOGASTRODUODENOSCOPY TRANSORAL DIAGNOSTIC 11/22/2017 EGD LAPAROSCOPY SURG CHOLECYSTECTOMY 2010 Cholecystectomy, lap ALLERGIES Seasonal Allergies and Tree Nuts MEDICATIONS amoxicillin-clavulanate potassium (AUGMENTIN) 875-125 mg per tablet Take 1 tablet by mouth two times a day for 10 days. predniSONE (DELTASONE) 20 mg tablet Take 1 tablet by mouth once daily for 4 days. Take daily with food. cyclobenzaprine (FLEXERIL) 10 mg tablet Take 1 tablet by mouth twice daily as needed for muscle spasm. (Patient not taking: Reported on 10/22/2023) meclizine (ANTIVERT) 12.5 mg tab Take 1 tablet by mouth every 6 hours as needed (dizziness). (Patient not taking: Reported on 07/10/2021 ) nicotine (NICODERM) 14 mg/24 hr Apply 1 Patch as directed every 24 hours. (Patient not taking: Reported on 07/10/2021 ) lorazepam (ATIVAN ORAL) Take by mouth. ondansetron orally disintegrating (ZOFRAN ODT) 8 mg disintegrating tablet Take one tab 30 min prior to taking azithromycin. Can repeat in 8 hrs if needed. (Patient not taking: Reported on 10/29/2020 ) hydrOXYzine HCl (ATARAX) 25 mg tablet Take 1 tablet by mouth every 6 hours as needed for Itching/Rash. (Patient not taking: Reported on 10/29/2020 ) guaiFENesin (MUCINEX) 600 mg 12 hr tablet Take 2 tablets by mouth twice daily. (Patient not taking: Reported on 04/20/2019 ) benzonatate (TESSALON PERLES) 100 mg capsule Take 1 capsule by mouth three times daily as needed. (Patient not taking: Reported on 04/20/2019 ) albuterol HFA (PROVENTIL HFA, VENTOLIN HFA) 90 mcg/actuation inhaler Inhale 2 Puffs as instructed every 4 hours as needed. (Patient not taking: Reported on 04/20/2019 ) nystatin (MYCOSTATIN) 100,000 unit/mL suspension Take 5 mL by mouth four times daily. 1tsp swish in mouth for several minutes, then swallow (or expectorate) 4 times daily until gone. (Patient not taking: Reported on 12/06/2018 ) estradiol (ESTRACE) 1 mg tablet Take 1 tablet by mouth once daily for 10 days. (Patient not taking: Reported on 12/06/2018 ) traMADol (ULTRAM) 50 mg tablet Take 1 tablet by mouth as needed for Pain for up to 7 days. (Patient not taking: Reported on 07/07/2021) Food Supplement, Lactose-Free (ENSURE ACTIVE HIGH PROTEIN) liqd Take 237 mL by mouth twice daily. (Patient not taking: Reported on 04/20/2019 ) colestipol (COLESTID) 1 gram tablet Take 1 tablet by mouth once daily. (Patient not taking: Reported on 04/20/2019 ) hyoscyamine SR (SYMAX-SR) 0.375 mg 12 hr tablet Take 1 tablet by mouth twice daily. (Patient not taking: Reported on 04/20/2019 ) ondansetron orally disintegrating (ZOFRAN ODT) 4 mg disintegrating tablet DISSOLVE ONE TABLET BY MOUTH EVERY 8 HOURS NEEDED FOR NAUSEA (Patient not taking: Reported on 05/15/2021) sucralfate (CARAFATE) 1 gram tablet TAKE 1 PO 30 MINUTES BEFORE MEALS AND AT BEDTIM (more content not included)...[facility]10-[facility] History of Present illness Narrative* Emily Busby APRN.LEGAL CONSULTANT - 08/03/2024 5:00 PM EDT Images from the original note were not included. Subjective UTI Associated symptoms include urgency. Pertinent negatives include no chills, no nausea and no vomiting. Cough Associated symptoms include shortness of breath and wheezing. Pertinent negatives include no chillsand no sore throat. Ashley Brown is a 33 year old female who presents with cough x 1 month, feels like she is unable tocough up anything, chest feels tight with cough. She has not had a fever. Cough is generally dry. She has has some shortness of breath. She denies any known sick contacts. She also notes having cloudy urine, urgency, and dysuria since this morning. Denies fever. No back pain today. She also notes finding a small abscess above her top teeth. One opened and drained yesterday but she is still having some pain in the area. She feels like another one is developing. She notes poor dentition due to a medication she used to take. Review of Systems Constitutional: Negative for chills and fever. HENT: Positive for congestion (runny nose that started today). Negative for sore throat. Respiratory: Positive for cough, shortness of breath and wheezing. Negative for sputum production. Cardiovascular: Negative. Gastrointestinal: Negative for abdominal pain, nausea and vomiting. Genitourinary: Positive for dysuria and urgency. Musculoskeletal: Negative for back pain. BP 125/85 Pulse 114 Temp 37.2 C (99 F) Resp 18 Wt 50 kg (110 lb 3.7 oz) LMP 05/01/2020 SpO2 99% BMI 18.34 kg/m PAST MEDICAL HISTORY Diagnosis Date Abnormal Pap smear of cervix FRACTURE WRIST AGE 6 Herpes simplex without mention of complication PANCREATITIS 2010 Recurrent major depression in partial remission (HCC) 07/17/2015 ? hypomanic PAST SURGICAL HISTORY Procedure Laterality Date COLONOSCOPY FLX DX W/COLLJ SPEC WHEN PFRMD 11/22/2017 Colonoscopy DILATION & CURETTAGE DX&/THER NONOBSTETRIC 2012 Dilation & curettage ESOPHAGOGASTRODUODENOSCOPY TRANSORAL DIAGNOSTIC 11/22/2017 EGD LAPAROSCOPY SURG CHOLECYSTECTOMY 2011 Cholecystectomy, lap ALLERGIES Seasonal Allergies and Tree Nuts MEDICATIONS amoxicillin-clavulanate potassium (AUGMENTIN) 875-125 mg per tablet Take 1 tablet by mouth two times a day for 10 days. predniSONE (DELTASONE) 20 mg tablet Take 1 tablet by mouth once daily for 4 days. Take daily with food. cyclobenzaprine (FLEXERIL) 10 mg tablet Take 1 tablet by mouth twice daily as needed for muscle spasm. (Patient not taking: Reported on 10/22/2023) meclizine (ANTIVERT) 12.5 mg tab Take 1 tablet by mouth every 6 hours as needed (dizziness). (Patient not taking: Reported on 07/10/2021 ) nicotine (NICODERM) 14 mg/24 hr Apply 1 Patch as directed every 24 hours. (Patient not taking: Reported on 07/10/2021 ) lorazepam (ATIVAN ORAL) Take by mouth. ondansetron orally disintegrating (ZOFRAN ODT) 8 mg disintegrating tablet Take one tab 30 min priorto taking azithromycin. Can repeat in 8 hrs if needed. (Patient not taking: Reported on 10/29/2020 ) hydrOXYzine HCl (ATARAX) 25 mg tablet Take 1 tablet by mouth every 6 hours as needed for Itching/Rash. (Patient not taking: Reported on 10/29/2020 ) guaiFENesin (MUCINEX) 600 mg 12 hr tablet Take 2 tablets by mouth twice daily. (Patient not taking:Reported on 04/20/2019 ) benzonatate (TESSALON PERLES) 100 mg capsule Take 1 capsule by mouth three times daily as needed. (Patient not taking: Reported on 04/20/2019 ) albuterol HFA (PROVENTIL HFA, VENTOLIN HFA) 90 mcg/actuation inhaler Inhale 2 Puffs as instructed every 4 hours as needed. (Patient not taking: Reported on 04/20/2019 ) nystatin (MYCOSTATIN) 100,000 unit/mL suspension Take 5 mL by mouth four times daily. 1tsp swish inmouth for several minutes, then swallow (or expectorate) 4 times daily until gone. (Patient not taking: Reported on 12/06/2018 ) estradiol (ESTRACE) 1 mg tablet Take 1 tablet by mouth once daily for 10 days. (Patient not taking:Reported on 12/06/2018 ) traMADol (ULTRAM) 50 mg tablet Take 1 tablet by mouth as needed for Pain for up to 7 days. (Patientnot taking: Reported on 07/07/2021) Food Supplement, Lactose-Free (ENSURE ACTIVE HIGH PROTEIN) liqd Take 237 mL by mouth twice daily. (Patient not taking: Reported on 04/20/2019 ) colestipol (COLESTID) 1 gram tablet Take 1 tablet by mouth once daily. (Patient not taking: Reported on 04/20/2019 ) hyoscyamine SR (SYMAX-SR) 0.375 mg 12 hr tablet Take 1 tablet by mouth twice daily. (Patient not taking: Reported on 04/20/2019 ) ondansetron orally disintegrating (ZOFRAN ODT) 4 mg disintegrating tablet DISSOLVE ONE TABLET BY MOUTH EVERY 8 HOURS NEEDED FOR NAUSEA (Patient not taking: Reported on 05/15/2021) sucralfate (CARAFATE) 1 gram tablet TAKE 1 PO 30 MINUTES BEFORE MEALS AND AT BEDTIME. (Patient not taking: Reported on 12/06/2018 ) fluticasone (FLONASE) 50 mcg/actuation nasal spray Use 2 Sprays in each nostril once daily. Rinse mouth after use. (Patient not taking: Reported on 04/20/2019 ) acetaminophen (TYLENOL) 325 mg tablet Take 650 mg by mouth every 6 hours as needed. FAMILY HISTORY Problem Relation Age of Onset Diabetes Mother COPD Mother Thyroid Mother Lipids Father Heart Father Social History Tobacco Use Smoking status: Every Day Current packs/day: 0.50 Average packs/day: 0.5 packs/day for 9.0 years (4.5 ttl pk-yrs) Types: Cigarettes Smokeless tobacco: Never Vaping Use Vaping status: Never Used Substance Use Topics Alcohol use: Yes Comment: Rarely Drug use: No Objective Physical Exam Vitals and nursing note reviewed. Constitutional: General: She is not in acute distress. Appearance: Normal appearance. She is not ill-appearing. HENT: Nose: Nose normal. Mouth/Throat: Lips: [place]. Mouth: Mucous membranes are moist. Pharynx: Uvula midline. No oropharyngeal exudate or posterior oropharyngeal erythema. Cardiovascular: Rate and Rhythm: Normal rate and regular rhythm. Heart sounds: Normal heart sounds. Pulmonary: Effort: Pulmonary effort is normal. No respiratory distress. Breath sounds: Normal breath sounds. No wheezing or rales. Musculoskeletal: Cervical back: Neck supple. Lymphadenopathy: Cervical: No cervical adenopathy. Skin: General: Skin is warm and dry. Findings: No erythema or rash. Neurological: Mental Status: She is alert. ASSESSMENT/PLAN: 1. Burning with urination - ICD9: 788.1, ICD10: R30.0 (primary diagnosis) acute - UA positive for nitrates - Send urine for culture - UA DIP, URINE (POC) - URINE CULTURE 2. Dental infection - ICD9: 522.4, ICD10: K04.7 - AMOXICILLIN 875 MG-POTASSIUM CLAVULANATE 125 MG TABLET 3. Bronchitis - ICD9: 490, ICD10: J40 - PREDNISONE 20 MG TABLET - Follow-up with your PCP in 3-5 days if symptoms have not improved or sooner if symptoms worsen - Discussed red flags and need for immediate medical evaluation if any occur. - Discussed supportive care treatment with fluids, rest and analgesia. - Discussed expected course of illness Emily Busby APRN.CNP Medical Decision Making: Problems: Low: 2+ self-limited or minor problems Moderate: New problem with uncertain prognosis Risk: Low: Low risk from testing/treatment Moderate: Drug management Medical Decision Making Level: 4 - Moderate [facility] Instructions* Patient Instructions* Milady Domínguez APRN.CNP - 03/15/2023 4:13 PM EDT Flexeril as ordered [place] as discussed * Prednisone 40 mg (2 tablets) per day for 5 days, take in morning or early in day * Do not NSAIDs during this 5 day course (ibuprofen, naproxen, Motrin, Aleve, Advil) Tylenol only during prednisone use * Follow up with primary care provider if no improvement with treatment documented in this encounterW[facility] History of Present illness Narrative* Milady Domínguez APRN.CNP - 03/15/2023 4:11 PM EDT Subjective The history is provided by the patient and a relative. No pattern drum maker was used. HPI Ashley Brown is a 32 year old female who presents today for CC of neck muscle strain that started in the past 24 hours. She has used ice without relief. She denies any trauma or injury, woke up with a stiff neck after falling asleep on the couch. BP 122/68 Pulse 84 Temp 36.4 C (97.5 F) Resp 18 Wt 54 kg (119 lb) LMP 05/01/2020 SpO2 99% BMI 19.80 kg/m Social History Tobacco Use Smoking status: Every Day Packs/day: 0.50 Years: 9.00 Pack years: 4.50 Types: Cigarettes Smokeless tobacco: Never Vaping Use Vaping Use: Never used Substance Use Topics Alcohol use: Yes Comment: Rarely Drug use: No PAST MEDICAL HISTORY Diagnosis Date Abnormal Pap smear of cervix FRACTURE WRIST AGE 6 Herpes simplex without mention of complication PANCREATITIS 2010 Recurrent major depression in partial remission ([facility]) 07/17/2015 ? hypomanic I have confirmed and edited as necessary, the [facility] Review of Systems Constitutional: Negative for chills and fever. Musculoskeletal: Positive for neck pain. Negative for joint pain and myalgias. Skin: Negative for itching and rash. All other systems reviewed and are negative. Objective Physical Exam Vitals and nursing note reviewed. Cardiovascular: Pulses: Radial pulses are 2+ on the right side and 2+ on the left side. Dorsalis pedis pulses are 2+ on the right side and 2+ on the left side. Posterior tibial pulses are 2+ on the right side and 2+ on the left side. Pulmonary: Effort: Pulmonary effort is normal. Musculoskeletal: Cervical back: Tenderness present. No swelling, edema, deformity, erythema, signs of trauma, lacerations, rigidity, spasms, torticollis, bony tenderness or crepitus. Pain with movement present. Decreased range of motion. Thoracic back: Normal. Lumbar back: Normal. Back: Skin: General: Skin is warm and dry. Neurological: Mental Status: She is alert and oriented to person, place, and time. Sensory: Sensation is intact. Deep Tendon Reflexes: Reflexes are normal and symmetric. Psychiatric: Mood and Affect: Affect normal. ASSESSMENT/PLAN: 1. Strain of neck muscle, initial encounter - ICD9: 847.0, ICD10: S16.1XXA Flexeril as ordered Prednisone, tylenol only while taking Stretches as discussed Rest, ice and heat When to seek higher level of care discussed. Diagnosis and treatment plan were discussed and questions were answered to the patient's satisfaction. Pt acknowledged understanding of concepts and follow up plan. Specific signs and symptoms that would indicate the need for higher level of care were discussed indetail warranting prompt ER evaluation. Milady Domínguez APRN.DAVID documented in this encounterW[facility]04-15-[facility]22 Instructions* Patient Instructions* Rafita Diehl V, DO - 02/12/2022 4:11 PM EDT Thank you for choosing the [facility] for your acute care needs. [facility] treats minor infections, rashes and injuries. It is our mission for our patients to be healthy. A primary care relationship with the physician allows for continuity of care, counseling, and maintenance of preventive health care needs. Express [facility] does not replace the relationship or need for a primary care physician. For information about establishing with a primary care physician or booking an appointment, please call [phone] or speak with any Patient Supervisor Drilling And Shooting. Hours: Tuesday through Tuesday 7:30 am to 7:00 pm. Tuesday and Tuesday: 8:00 am to 2:30 pm. documented in this encounterWvumed[facility]04-15-2022 History of Present illness Narrative* Rafita Diehl V, DO - 02/12/2022 4:07 PM EDT SUBJECTIVE: Ashley Brown is a 31 year old female who is here for a right shoulder, clavicle, anterior chest wall injury. It occurred 2 weeks ago after throwing softball repeatedly with distance and velocity. Symptoms include pain over the top of the collarbone and into the anterior chest shoulder and neck region. She was seen in [facility] and has used a sling and some Lidoderm patch and states that she is feeling somewhat better. She still has soreness over her clavicle and has to hold pressure over it when she moves her right arm keep it from hurting. PAST MEDICAL HISTORY Diagnosis Date Abnormal Pap smear of cervix FRACTURE WRIST AGE 6 Herpes simplex without mention of complication PANCREATITIS 2010 Recurrent major depression in partial remission (HCC) 07/17/2015 ? hypomanic PAST SURGICAL HISTORY Procedure Laterality Date COLONOSCOPY FLX DX W/COLLJ SPEC WHEN PFRMD 11/22/2017 Colonoscopy DILATION & CURETTAGE DX&/THER NONOBSTETRIC 2012 Dilation & curettage ESOPHAGOGASTRODUODENOSCOPY TRANSORAL DIAGNOSTIC 11/22/2017 EGD LAPAROSCOPY SURG CHOLECYSTECTOMY 2011 Cholecystectomy, lap Current Outpatient Medications on File Prior to Visit Medication Sig lorazepam (ATIVAN ORAL) Take by mouth. acetaminophen (TYLENOL) 325 mg tablet Take 650 mg by mouth every 6 hours as needed. naproxen (NAPROSYN) 500 mg tablet Take 1 tablet by mouth twice daily as needed (for pain/inflammation). Take with food. meclizine (ANTIVERT) 12.5 mg tab Take 1 tablet by mouth every 6 hours as needed (dizziness). (Patient not taking: Reported on 07/10/2021 ) cyclobenzaprine (FLEXERIL) 10 mg tablet Take 1 tablet by mouth twice daily as needed for Muscle Spasm. (Patient not taking: Reported on 07/20/2021 ) nicotine (NICODERM) 14 mg/24 hr Apply 1 Patch as directed every 24 hours. (Patient not taking: Reported on 07/10/2021 ) ondansetron orally disintegrating (ZOFRAN ODT) 8 mg disintegrating tablet Take one tab 30 min priorto taking azithromycin. Can repeat in 8 hrs if needed. (Patient not taking: Reported on 10/29/2020 ) hydrOXYzine HCl (ATARAX) 25 mg tablet Take 1 tablet by mouth every 6 hours as needed for Itching/Rash. (Patient not taking: Reported on 10/29/2020 ) guaiFENesin (MUCINEX) 600 mg 12 hr tablet Take 2 tablets by mouth twice daily. (Patient not taking:Reported on 04/20/2019 ) benzonatate (TESSALON PERLES) 100 mg capsule Take 1 capsule by mouth three times daily as needed. (Patient not taking: Reported on 04/20/2019 ) albuterol HFA (PROVENTIL HFA, VENTOLIN HFA) 90 mcg/actuation inhaler Inhale 2 Puffs as instructed every 4 hours as needed. (Patient not taking: Reported on 04/20/2019 ) nystatin (MYCOSTATIN) 100,000 unit/mL suspension Take 5 mL by mouth four times daily. 1tsp swish inmouth for several minutes, then swallow (or expectorate) 4 times daily until gone. (Patient not taking: Reported on 12/06/2018 ) estradiol (ESTRACE) 1 mg tablet Take 1 tablet by mouth once daily for 10 days. (Patient not taking:Reported on 12/06/2018 ) traMADol (ULTRAM) 50 mg tablet Take 1 tablet by mouth as needed for Pain for up to 7 days. (Patientnot taking: Reported on 07/07/2021) Food Supplement, Lactose-Free (ENSURE ACTIVE HIGH PROTEIN) liqd Take 237 mL by mouth twice daily. (Patient not taking: Reported on 04/20/2019 ) colestipol (COLESTID) 1 gram tablet Take 1 tablet by mouth once daily. (Patient not taking: Reported on 04/20/2019 ) hyoscyamine SR (SYMAX-SR) 0.375 mg 12 hr tablet Take 1 tablet by mouth twice daily. (Patient not taking: Reported on 04/20/2019 ) ondansetron orally disintegrating (ZOFRAN ODT) 4 mg disintegrating tablet DISSOLVE ONE TABLET BY MOUTH EVERY 8 HOURS NEEDED FOR NAUSEA (Patient not taking: Reported on 05/15/2021) sucralfate (CARAFATE) 1 gram tablet TAKE 1 PO 30 MINUTES BEFORE MEALS AND AT BEDTIME. (Patient not taking: Reported on 12/06/2018 ) fluticasone (FLONASE) 50 mcg/actuation nasal spray Use 2 Sprays in each nostril once daily. Rinse mouth after use. (Patient not taking: Reported on 04/20/2019 ) No current facility-administered medications on file prior to visit. EXAM: General: cooperative and NAD Location: Right sternoclavicular region is tender to palpation over the superior aspect of the clavicle and the sternocleidomastoid muscle. There is no pain over the shoulder with palpation or with motion. There is no crepitus over the clavicle with direct palpation. No significant soft tissue swelling noted. Negative for: deformity, crepitation or instability Neurovascular: intact X-ray: No fractures or dislocations are seen. The bones, joint spaces and soft tissues are unremarkable IMPRESSION: Soft tissue injury with strain to the sternoclavicular joint and sternocleidomastoid muscle PLAN: Transition out of sling. Begin range of motion and strengthening exercises with the shoulder in theneck Patient Instructions: Use contrast heat and ice heat before and ice after exercises Follow-up if symptoms worsen, if aggressive numbness tingling or weakness developed in the arm Rafita Diehl DO * Ani Sanches Ma - 02/12/2022 3:44 PM EDT AMB ROOMING INTAKE FLOWSHEET DATA Risk Screening Do you have concerns about personal safety or safety in the home?: No Pain Pain Level: 6 Pain Location: (right collarbone) Description: Aching, Shooting, Other: See comment (grinding and popping) Duration Amount of Time: 2 Duration Units: Weeks Frequency: Continuous Intervention/Comfort measure: Other: See comment, Cold, Medication (sling) documented in this encounterWvumed[facility]04-08-2022 History of Present illness Narrative* Felicity Boogie RT(R) - 02/05/2022 11:30 AM EDT Radiology Service Progress Note PATIENT NAME: Ashley Brown DATE OF SERVICE: February 05, 2022 TIME: 11:30 AM PATIENT IDENTITY VERIFICATION COMPLETED USING TWO (2) IDENTIFIERS: Name and Date of confirmedby patient verbally. FALL SCREENING: Has the patient had 2 falls in the last year or 1 fall with injury or currently using an Ambulatory Assistive Device (Walker, Cane, Wheelchair, Crutches, etc.)? No PATIENT GENDER DATA: Female. status: : No status: NO. PATIENT RELEVANT IMPLANT DATA REVIEWED: Not Applicable RADIOLOGY DEPARTMENT: General X-ray: Exam(s) Completed: Upper Extremity X- Ray(s): Shoulder, AP / TRUE AP / AXILLARY right PERIPHERAL IV DATA: Not applicable SIGNED BY: RT Lorelei(R) February 05, 2022 11:30 AM documented in this encounterWvumedicine [facility]04-21-2014 History of Past illness Narrative* Problem Noted Date Resolved Date Low-lying placenta 02/18/2014 07/03/2014 Overview: 02/18/14: repeat US 8-10 weeks.Kiara Bacon CNP History of miscarriage, currently 09/2007/03/2014 Overview: 09/20/2013She is 3 para one with a history of a miscarriage on April 20, 2013. We discussed her loss. Patient states she did not get out of bed for approximately 2 weeks after the miscarriage. She feels she was depressed but she did not report the symptoms. Patient denies any depression symptoms since then. Discussed increased risks of depression during and and importance of reporting the development or worsening of symptoms should they occur. Pt denies ever having any suicidal thoughts or tendencies or thoughts of hurting others. Information on [facility] at [facility] given to patient. 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 Ultrasound ordered by Dr. Leahy for uncertain dates and history of miscarriage. TKRN Subchorionic hemorrhage 04/05/2013 07/03/20 14 Overview: Viable IUP seen History of delivery, currently 03/27/2013 07/03/2014 Overview: Boy on us 03/27/2013Pt has a history of labor and delivery at 34 weeks 6 days with her last . Signs and symptoms of PTL discussed and the importance of going to the hospital at onset of PTL should it occur. Felicity MIRAMONTES RN Tobacco use in 03/27/2013 014 Overview: 03/27/2013 Pt smokes 1/2-3/4 pack a day of cigarettes, down from 1- 1 1/2 ppd. Discussed risks of smoking during . Advised pt to quit. [place] tobacco quit line information given to patient. TKRN History of herpes genitalis 03/27/201312/2013 Overview: 03/27/2013 Patient has a history of genital herpes.Discussed with pt. importance of reporting any outbreaks during should they occur.Felicity MIRAMONTES RN History of pancreatitis 03/27/2013 07/03/20 14 Overview: 03/27/2013 Patient was admitted for pancreatitis several times in 2010. She states she was hospitalized 4 times at [facility] and once at [facility]. She states each hospitalization was for 5-7 days. She states she was told pancreatitis was related to gallbladder issues. Patient has a history of a cholecystectomy in 2010. She denies any problems with pancreatitis since 2010.Felicity MIRAMONTES RN documented as of this encounter (statuses as of 02/15/2022) [facility]04-[facility] History of Past illness Narrative* Problem Noted Date Resolved Date Low-lying placenta 02/18/2014 07/03/2014 Overview: 02/18/14: repeat US 8-10 weeks.Kiara Bacon CNP History of miscarriage, currently 09/2007/03/2014 Overview: 09/20/2013She is 3 para one with a history of a miscarriage on April 20, 2013. We discussed her loss. Patient states she did not get out of bed for approximately 2 weeks after the miscarriage. She feels she was depressed but she did not report the symptoms. Patient denies any depression symptoms since then. Discussed increased risks of depression during and and importance of reporting the development or worsening of symptoms should they occur. Pt denies ever having any suicidal thoughts or tendencies or thoughts of hurting others. Information on [facility] at [facility] given to patient. 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 Ultrasound ordered by Dr. Leahy for uncertain dates and history of miscarriage. TKRN Subchorionic hemorrhage 04/05/2013 07/03/20 14 Overview: Viable IUP seen History of delivery, currently 03/27/2013 07/03/2014 Overview: Boy on us 03/27/2013Pt has a history of labor and delivery at 34 weeks 6 days with her last . Signs and symptoms of PTL discussed and the importance of going to the hospital at onset of PTL should it occur. Felicity MIRAMONTES RN Tobacco use in 03/27/2013 014 Overview: 03/27/2013 Pt smokes 1/2-3/4 pack a day of cigarettes, down from 1- 1 1/2 ppd. Discussed risks of smoking during . Advised pt to quit. [place] tobacco quit line information given to patient. TKRN History of herpes genitalis 03/27/201312/2013 Overview: 03/27/2013 Patient has a history of genital herpes.Discussed with pt. importance of reporting any outbreaks during should they occur.Felicity MIRAMONTES RN History of pancreatitis 03/27/2013 07/03/20 14 Overview: 03/27/2013 Patient was admitted for pancreatitis several times in 2010. She states she was hospitalized 4 times at [facility] and once at [facility]. She states each hospitalization was for 5-7 days. She states she was told pancreatitis was related to gallbladder issues. Patient has a history of a cholecystectomy in 2010. She denies any problems with pancreatitis since 2010.Felicity MIRAMONTES RN documented as of this encounter (statuses as of 03/16/2023) [facility] note* Diagnosis Strain of sternocleidomastoid muscle, initial encounter- Primary documented in this encounter [facility] note* Diagnosis Strain of neck muscle, initial encounter- Primary documented in this encounter [facility] noteNo assessment information availableWOhioHealth [facility] Work Phone: Evaluation note* Diagnosis Acute pain of right shoulder documented in this encounter [facility] note* Diagnosis Burning with urination- Primary Dysuria Dental infection Acute apical periodontitis of pulpal origin Bronchitis Bronchitis, not specified as acute or chronic documented in this encounter [facility] note* Diagnosis Bronchitis- Primary Bronchitis, not specified as acute or chronic Wheezing Bronchitis Bronchitis, not specified as acute or chronic documented in this encounter [facility] note* Diagnosis Bronchitis Bronchitis, not specified as acute or chronic documented in this encounter [facility] note* Diagnosis Family history of thyroid disease- Primary Family history of other endocrine and metabolic diseases documented in this encounter [facility] for referral (narrative)* Diagnostic Procedure Only (Urgent) - Closed Specialty Diagnoses / Procedures Referred By Contac t Referred To Contact XR IMAGING Diagnoses Acute pain of right shoulder Procedures XR SHOULDER GENERAL 3V OR MORE AP/TRUE AP/OTHER RIGHT RADEX SHOULDER COMPLETE MINIMUM 2 VIEWS Emily Busby, TETO.LEGAL CONSULTANT [address] [place] [address] [place] [address] Referral ID Status Reason Start Date Expiration Date V isits Requested Visits Authorized [id number] Closed Auto-Generate d Referral 02/05/2022 03/07/2023 1 1 [facility] HospitalReason for referral (narrative)No reason for referral information availableIndiana [facility] Work Phone: Reason for visit Narrative* Diagnostic Procedure Only (Urgent) - Closed Specialty Diagnoses / Procedures Referred By Contac t Referred To Contact XR IMAGING Diagnoses Acute pain of right shoulder Procedures XR SHOULDER GENERAL 3V OR MORE AP/TRUE AP/OTHER RIGHT RADEX SHOULDER COMPLETE MINIMUM 2 VIEWS Emily Busby APRN.CNP [address] [place] [address] [place] [address] Referral ID Status Reason Start Date Expiration Date V isits Requested Visits Authorized [id number] Closed Auto-Generate d Referral 02/05/2022 03/07/2023 1 1 [facility] Summary Purpose Family History No Family History Records Found Relationship Condition Age at Onset Recorded Date/T feder[place] father Cardiac disease Unknown mother Chronic obstructive pulmonary disease Unk nown Diabetes mellitus Unknown grandfather Cardiac disease Unknown Relationship Condition Age at Onset Recorded Date/T federica father Cardiac disease Unknown Alcoholism Unknown mother Diabetes mellitus Unknown Malignant neoplasm of urinary bladder 60 Chronic obstructive pulmonary disease Unk nown Arthritis Unknown Malignant neoplasm Unknown Malignant neoplasm of uterus Unknown Disorder of thyroid Unknown Disorder of respiratory system Unknown grandfather Cardiac disease Unknown uncle Malignant neoplasm of skin Unknown Advance Directives No Advanced Directives Records FoundDocuments on File Type Date Recorded 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 Advance Directive(s) 11/22/2017 10:44 AM Advance Directive Response Recorded Date/ Time Living Will No June 27 9:01am Power of Aviation Electronics Technician No June 27, 023 9:01am Chief Complaint and Reason for Visit Chief Complaint foot Chief Complaint Admit Date 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) February 25, 2025 1:3 1pm Thyroid May 02, 2025 10:28 am Reason for Visit Admit Date EDNA III (cervical intraepithelial neopla rita III) February 25, 2025 1:31pm HSV-2 infection February 25, 2025 1:3 1pm STD exposure February 25, 2025 1:3 1pm Encounter for routine gynecological exam ination February 25, 2025 1:31pm Garcia's thyroiditis May 02, 2025 1 0:28am Additional Source Comments INFORMATION SOURCE (unrecogn ized section and content) DATE CREATED AUTHOR 08/10/2018 [facility] DATE CREATED AUTHOR AUTHOR'S ORGANIZ ATION 05/04/[address] [facility] DATE CREATED AUTHOR AUTHOR'S ORGANIZ ATION 05/10/2025 [facility] Source Comments (unrecognize d section and content) In the event this informatio n is protected by the Federal Confidentiality of Alcohol and Drug Abuse Patient Records regulations: The Federal rules restrict any use of the information to criminally investigate or prosecute any alcohol or drug abuse patient.[facility] HospitalIn the event this information is protected by the Federal Confidentiality of Alcohol and Drug Abuse Patient Records regulations: The Federal rules restrict any use of the information to criminally investigate or prosecute any alcohol or drug abuse patient.[facility] HospitalIn the event this information is protected by the Federal Confidentiality of Alcohol and Drug Abuse Patient Records regulations: The Federal rules restrict any use of the information to criminally investigate or prosecute any alcohol or drug abuse patient.[facility] HospitalIn the event this information is protected by the Federal Confidentiality of Alcohol and Drug Abuse Patient Records regulations: The Federal rules restrict any use of the information to criminally investigate or prosecute any alcohol or drug abuse patient.[facility] HospitalIn the event this information is protected by the Federal Confidentiality of Alcohol and Drug Abuse Patient Records regulations: The Federal rules restrict any use of the information to criminally investigate or prosecute any alcohol or drug abuse patient.[facility] HospitalIn the event this information is protected by the Federal Confidentiality of Alcohol and Drug Abuse Patient Records regulations: The Federal rules restrict any use of the information to criminally investigate or prosecute any alcohol or drug abuse patient.[facility] HospitalIn the event this information is protected by the Federal Confidentiality of Alcohol and Drug Abuse Patient Records regulations: The Federal rules restrict any use of the information to criminally investigate or prosecute any alcohol or drug abuse patient.[facility] HospitalIn the event this information is protected by the Federal Confidentiality of Alcohol and Drug Abuse Patient Records regulations: The Federal rules restrict any use of the information to criminally investigate or prosecute any alcohol or drug abuse patient.[facility] HospitalIn the event this information is protected by the Federal Confidentiality of Alcohol and Drug Abuse Patient Records regulations: The Federal rules restrict any use of the information to criminally investigate or prosecute any alcohol or drug abuse patient.[facility] HospitalIn the event this information is protected by the Federal Confidentiality of Alcohol and Drug Abuse Patient Records regulations: The Federal rules restrict any use of the information to criminally investigate or prosecute any alcohol or drug abuse patient.[facility] HospitalIn the event this information is protected by the Federal Confidentiality of Alcohol and Drug Abuse Patient Records regulations: The Federal rules restrict any use of the information to criminally investigate or prosecute any alcohol or drug abuse patient.[facility] HospitalIn the event this information is protected by the Federal Confidentiality of Alcohol and Drug Abuse Patient Records regulations: The Federal rules restrict any use of the information to criminally investigate or prosecute any alcohol or drug abuse patient.[facility] Reason for Visit (unrecogniz ed section and content) Reason Comments New Patient Right shoulder pain [place] [facility] Reason Comments Neck Pain left side,headache, nausea x 2 days, after sleeping Reason Comments UTI Urgency, burning, cl oudy urine x1 day Cough Chest congestion x1 month, pneumonia exposure Reason Comments Results Orders Reason Comments Results Reason Comments Recheck Was seen in [facility]. Still having cough and headache and shortness breath Reason Comments Referral to Endocrinology Reason Comments Referral to Endo Reason Comments Appointment Care Teams (unrecognized sec tion and content) Cloth Desizing Range Tender Relationship Specialty Start Date End Date Romulo Kemp DO [address] [place] [address] PCP - General Family Practice 08/09/14 Cloth Desizing Range Tender Relationship Specialty Start Date End Date Romulo Kemp DO [address], [place] [id number] PCP - General Family Medicine 08/09/14 Team Status: Active Member Role Status Dates Dr. Romulo Kemp DO Family Provider Active Dr. Romulo Kemp DO Primary Care Provider Active Team Status: Inactive Member Role Status Dates Dr. Romulo Kemp DO Primary Care Provider Active Dr. Carmine Clifford , Emergency Provider Active Cloth Desizing Range Tender Relationship Specialty Start Date End Date Romulo Kemp DO [address] [facility] [place] [address] PCP - General Family Medicine 08/09/14 Cloth Desizing Range Tender Relationship Specialty Start Date End Date Romulo Kemp DO [address] [place] [place] [address] PCP - General Family Medicine 08/09/14 Cloth Desizing Range Tender Relationship Specialty Start Date End Date Romulo Kemp DO [address] [place] [place] [address] PCP - General Family Medicine 08/09/14 Cloth Desizing Range Tender Relationship Specialty Start Date End Date Romulo Kemp DO [address] [place] [place] [address] PCP - General Family Medicine 08/09/14 Cloth Desizing Range Tender Relationship Specialty Start Date End Date Romulo Kemp DO [address] [place] [place] [address] PCP - General Family Medicine 08/09/14 Cloth Desizing Range Tender Relationship Specialty Start Date End Date Romulo Kemp DO [address] [place] [place] [address] PCP - General Family Medicine 08/09/14 Cloth Desizing Range Tender Relationship Specialty Start Date End Date Romulo Kemp DO [address] [place] [place] [address] PCP - General Family Medicine 08/09/14 Cloth Desizing Range Tender Relationship Specialty Start Date End Date Romulo eKmp DO [address] [place] [address] PCP - General Family Medicine 08/09/14 Suad Nascimento APRN.LEGAL CONSULTANT [address] [place] [address] [facility] Cloth Desizing Range Tender Relationship Specialty Start Date End Date Romulo Kemp DO [address] [place] [address] PCP - General Family Medicine 08/09/14 Suad Nascimento, TETO.LEGAL CONSULTANT [address] [place] [address] [facility] 10/07/24 Team Status: Active Member Role/Relationship Status Dates Dr. Romulo Kemp DO Primary Care Provider Active Team Status: Inactive Member Role/Relationship Status Dates Dr. Romulo Kemp DO Primary Care Provider Active Start: February 22, 2025 End: February 22, 2025 Suad Nascimento PRIMING POWDER PREMIX BLENDER, PRIMING POWDER PREMIX BLENDER-C Attending Provider Active Start: February 22, 2025 End: February 22, 2025 Suad Nascimento PRIMING POWDER PREMIX BLENDER, PRIMING POWDER PREMIX BLENDER-C Referring Provider Active Start: February 22, 2025 End: February 22, 2025 Team Status: Inactive Member Role/Relationship Status Dates Dr. Romulo Kemp DO Primary Care Provider Active Start: February 25, 2025 End: February 25, 2025 Dr. Romulo Kemp DO Referring Provider Active Start: February 25, 2025 End: February 25, 2025 Kiara Bacon PRIMING POWDER PREMIX BLENDER, PRIMING POWDER PREMIX BLENDER-C Attending Provider Active Start: February 25, 2025 End: February 25, 2025 Team Status: Inactive Member Role/Relationship Status Dates Dr. Romulo Kemp DO Primary Care Provider Active Start: February 25, 2025 End: February 25, 2025 Kiara Bacon PRIMING POWDER PREMIX BLENDER, PRIMING POWDER PREMIX BLENDER-C Attending Provider Active Start: February 25, 2025 End: February 25, 2025 Kiara Keystone PRIMING POWDER PREMIX BLENDER, PRIMING POWDER PREMIX BLENDER-C Referring Provider Active Start: February 25, 2025 End: February 25, 2025 Team Status: Inactive Member Role/Relationship Status Dates Dr. Romulo Kemp DO Primary Care Provider Active Start: May 02, 2025 End: May 02, 2025 Dr. Romulo Kemp DO Referring Provider Active Start: May 02, 2025 End: May 02, 2025 Dr. Dustin Flowers MD Attending Provider Active Sta rt: May 02, 2025 End: May 02, 2025 Cloth Desizing Range Tender Relationship Specialty Start Date End Date Romulo Kemp DO [address] [place], [place] [id number] PCP - General Family Medicine 08/09/14 Suad Nascimento, CONSTRUCTION EQUIPMENT TECHNICIAN.LEGAL CONSULTANT [address], [place] [id number] [employer] Installer Family Medicine 10/07/24 Roxana Funes, CONSTRUCTION EQUIPMENT TECHNICIAN.LEGAL CONSULTANT [address] [place], [place] [id number] [employer]razzo Installer Family [facility] 04/15/25 Goals (unrecognized section and content) Goals may be documented in a n alternate sectionGoals may be documented in an alternate section FOR RECORDS PERTAINING TO PATIENTS WHO ARE OR HAVE BEEN ENROLLED IN A CHEMICAL DEPENDENCY/SUBSTANCEABUSE PROGRAM, SOME INFORMATION MAY BE OMITTED. This clinical summary was aggregated from multiple sources. Caution should be exercised in using it in the provision of clinical care. This summary normalizes information from multiple sources, and as a consequence, information in this document may materially change the coding, format and clinical context of patient data. In addition, data may be omitted in some cases. CLINICAL DECISIONS SHOULD BE BASED ON THE PRIMARY CLINICAL RECORDS. [employer] provides no warranty or guarantee of the accuracy or completeness of information in this document.
[2025-07-23 19:33] VITALS: BP 105/80; PULSE 69; RESP 18; O2SAT 98
--- NOTE | 2025-07-23 20:52 | EKG12_ITS ---
Test Reason : chest pain Blood Pressure : */* mmHG Vent. Rate : 92 BPM Atrial Rate : 92 BPM P-R Int : 124 ms QRS Dur : 80 ms QT Int : 362 ms P-R-T Axes : 80 98 51 degrees QTcB Int : 447 ms Normal sinus rhythm with sinus arrhythmia Possible Left atrial enlargement Rightward axis Borderline ECG Confirmed by Jameel Kapoor ([id number]), editor continuity and script ANGELIQUE TILLMAN ([id number]) on 07/25/2025 5:54:50 AM Referred By: Confirmed By: Jameel Kapoor
[2025-07-23 21:00] VITALS: BP 153/81; PULSE 77; RESP 18; O2SAT 99
--- NOTE | 2025-07-23 21:03 | EKG12_ITS ---
Test Reason : CP Blood Pressure : */* mmHG Vent. Rate : 80 BPM Atrial Rate : 80 BPM P-R Int : 126 ms QRS Dur : 80 ms QT Int : 386 ms P-R-T Axes : 85 94 60 degrees QTcB Int : 445 ms Normal sinus rhythm with sinus arrhythmia Possible Left atrial enlargement Rightward axis Borderline ECG Confirmed by Jameel Kapoor ([id number]), newspaper editor ANGELIQUE TILLMAN ([id number]) on 07/25/2025 5:57:17 AM Referred By: Confirmed By: Jameel Kapoor
[2025-07-23 21:33] LABS: Hematocrit 41.1 % (37-47); Hemoglobin 13.9 g/dL (12.0-15.0); Immature Granulocytes Count 0.030 X10^3/uL (0.0-0.0); Mean Corp Hgb Conc 33.8 g/dL (32-36); Mean Corpuscular Volume 91.1 fL (81-99); Mean Platelet Vol. 10.5 fl (6.2-12.0); NRBC Flagged by Analyzer 0 % (0-5); Platelet Count 315 K/mm3 (150-450); RBC Distribution Width CV 12.0 % (11.6-14.6); RBC Distribution Width SD 40.0 fl (35.1-43.9); Red Blood Count 4.51 M/mm3 (4.2-5.4); White Blood Count 11.0 K/mm3 (4.4-11.0)
--- NOTE | 2025-07-23 21:34 | RAD_ITS ---
PROCEDURE: CHEST PA AND LATERAL 07/23/2025 REASON FOR EXAM: PLEURITIC CHEST PAIN TECHNIQUE: Procedure Code: RADCXR Modality: DX Procedure: CHEST PA AND LATERAL COMPARISON: None FINDINGS: No focal consolidation. No pleural effusion or pneumothorax. Cardiac silhouette is within normal limits. No acute fractures. RAD/Chest PA and Lateral IMPRESSION: No focal consolidations. Reading Location: [id number]
[2025-07-23 21:58] LABS: Anion Gap 13 (5-15); BUN 10 mg/dL (4-19); BUN/Creat Ratio 12.3 RATIO (10-20); Calcium,Total 10.0 mg/dL (7.6-11.0); Carbon Dioxide 24.0 mmol/L (21.0-32.0); Chloride 101 mmol/L (98-108); Estimated Creatinine Clearance 80.26 ml/min (50-250); Glucose 90 mg/dL (70-99); Potassium 3.7 mmol/L (3.3-5.1); Troponin T High Sensitivity < 6 ng/L (<=14)
[2025-07-23 23:00] VITALS: BP 153/81; PULSE 74; RESP 16; O2SAT 98
[2025-07-23 23:54] LABS: Troponin T High Sens 2 HR 6 ng/L (<=14)
[2025-07-23 23:59] VITALS: BP 102/73; PULSE 71; RESP 16; TEMP 36.6; O2SAT 99
--- NOTE | 2025-07-23 23:59 | ED.VIS.CHEST ---
HPI History of Present Illness Chief Complaint: Chest Pain Detail of Chief Complaint: Anterior chest pain with pleuritic component and left upper quadrant pain Informant: patient Onset/Context/Timing Onset: Yesterday Activity at onset: sudden Timing: Intermittent and Waxes and wanes Quality: Positive for - (Pain/discomfort) Location: - (Right anterior pain superior to the breast. Left anterior pain superior to the breast near the left costal margin and left upper quadrant) Current Severity: Mild Maximum Severity: Severe Worsened By: Palpation, Breathing and Coughing; Not Worsened By Nothing, Exertion, Movement of Arm, Movement of Torso or Eating Relieved By: - (Not breathing) Associated Symptoms: Positive for Cough; Negative for Nausea, Vomiting, Diaphoresis, Dyspnea, Fever, Lightheadedness, Acid Reflux (Patient has a history of reflux but does not have any reflux symptoms.) or Palpitations Narrative Narrative: Patient is a 34-year-old female. She is status post hysterectomy. She is a smoker of half pack per day. She is on no hormonal therapy. She has no history of VTE. She has no risk factors for VTE. She denies leg pain, swelling discoloration. She does endorse nasal congestion and runny nose. She attributes this to allergies. She denies fever, chills or night sweats. She denies sore throat. She denies ear pain or ear drainage. She does have history of reflux. She denies heartburn, indigestion. Denies black or maroon-colored stool. She denies intolerance to greasy or fried foods. She has no history of pancreatitis. She denies weight gain or weight loss. She has no urologic symptoms. Prior Similar Symptoms: No Recent Illness/Hospitalization: No CVD Risk Factors: Positive for Family History 1' </=55 (Cardiovascular disease multiple family member) and Smoking; Negative for Hypertension, Diabetes or Hypercholesterolemia PE Risk Factors: Negative for Recent Travel/Surgery, Recent Immobilization, Prior DVT or PE, Cancer or OCP + Smoking + >/=35 TAD Risk Factors: Negative for Marfan's Syndrome, Hypertension or Family History [facility] Medical History Joint laxity Dysautonomia Garcia's thyroiditis EDNA III (cervical intraepithelial neoplasia III) Home Medications ?Medication ?Instructions ?Recorded ?Last Taken ?Type naproxen 500 mg tablet (Naprosyn) 500 mg PO BID PRN pain #20 tabs 07/24/25 Unknown Rx Allergy/AdvReac Type Severity Reaction Status Date / Time Seasonal Allergies: Uncoded Allergy Mild Other Verified 07/23/25 17:02 nut - unspecified Allergy Hives Verified 07/23/25 17:02 Family History Father Heart disease Alcoholism Mother Diabetes Bladder cancer, Onset Age: 60 COPD (chronic obstructive pulmonary disease) Arthritis Cancer Uterine cancer Thyroid disorder Respiratory disease Grandfather Heart disease Arthritis Cancer Uncle Skin cancer Surgical History Hx of bilateral salpingectomy History of total vaginal hysterectomy (TVH) History of oral surgery History of dilation and curettage History of cholecystectomy Social History household members: spouse number of children: 2 current occupational status: employed current occupation: [employer] history of recent travel: No sexually active: Yes Smoking Status: Current every day smoker tobacco type: cigarettes alcohol intake: current alcohol intake frequency: holidays/special occasions only substance use type: does not use caffeine: Yes what type of physical activity do you participate in: none seatbelt use: always do you feel safe at home: Yes additional social history: soon to be . Has boyfriend - ROS ROS ED Constitutional Constitutional ED: Denies chills, fever(s) or subjective Eyes Eyes: Reports none ENT ENT ED: Reports rhinorrhea; Denies ear pain or sore throat Cardiovascular Cardiovascular: Reports as per HPI; Denies orthopnea or paroxysmal nocturnal dyspnea Respiratory/Chest Respiratory/Chest: Reports cough; Denies dyspnea, dyspnea on exertion, orthopnea or paroxysmal nocturnal dyspnea Gastrointestinal Gastrointestinal: Reports abdominal pain; Denies constipation, diarrhea, melena, nausea or vomiting Genitourinary Genitourinary ED: Denies dysuria, hematuria or urinary frequency Musculoskeletal Musculoskeletal: Denies arthralgias, back pain or neck pain Integumentary Denies abscess Neurologic Neurologic: Denies paresthesias or weakness Psychiatric Psychiatric: Denies anxiety or depression Endocrine Endocrinology: Denies cold intolerance or heat intolerance Hematologic/Lymphatic Hematologic/Lymphatic: Denies easy bleeding or easy bruising EXAM Physical Exam Const Vital Signs: 07/23/25 17:02 07/23/25 19:33 07/23/25 21:00 Temperature 96.1 F L Temperature Source Temporal Pulse Rate 100 69 77 Respiratory Rate 14 18 18 Blood Pressure 118/77 105/80 153/81 H Blood Pressure Mean 90 88 105 Pulse Ox 100 98 99 Oxygen Delivery Method Room Air Room Air Room Air 07/23/25 23:00 Temperature Temperature Source Pulse Rate 74 Respiratory Rate 16 Blood Pressure 153/81 H Blood Pressure Mean 105 Pulse Ox 98 Oxygen Delivery Method Room Air Positive well nourished and well developed; Negative for obese General Appearance ED: well developed and NAD; Negative for pallor Nutritional Appearance: Negative for obese HEENT Reports TM's clear and moist mucous membranes normocephalic and atraumatic Tympanic Membrane ED: Yes TM's clear Eyes PERRL and EOMs intact bilaterally General Eye ED: Negative for pale conjunctiva or scleral icterus Neck no lymphadenopathy, supple and no JVD Chest Wall inspection of chest normal and palpation of chest normal Resp normal respiratory effort and clear to auscultation bilaterally Effort and Inspection: Negative for respiratory distress Cardio regular rate, regular rhythm, S1 normal heart sound, S2 normal heart sound and no murmurs Peripheral Pulses: pulses 2+ throughout GI normal to inspection, nondistended, normoactive bowel sounds, soft to palpation, non-distended and no masses; Negative for non-tender or hepatosplenomegaly GI Narrative: Tenderness left upper quadrant/left costal margin Back/Spine no CVA tenderness and no thoracic nor lumbar tenderness Extremity normal to inspection Extremity Narrative: There is no mottling, clubbing or acrocyanosis. General Extremety ED: Negative for edema or pulses abnormal General Extremity: Negative for edema or pulses abnormal Neuro oriented x3 and CN's II-XII intact bilaterally Sensorium / Orientation: awake and alert Psych mental status grossly normal Skin no rashes or lesions noted and no wounds General Skin Exam: Negative for jaundice or pallor Heart Score History: Slightly/Non-Suspicious ECG: Normal Age: </= 45 years Risk Factors: 1 or 2 Risk Factors Troponin: </= Normal Limit Score: 1 MDM MDM MDM Narrative Medical decision making narrative: Pleurisy, pulmonary embolus, atypical cardiac presentation, pneumothorax, pneumonia pain of unknown etiology. Since patient PERC negative and Wells score is less than 3 there is no consideration for pulmonary embolus. Lab Data Labs: Laboratory Results - last 24 hr 07/23/25 07/23/25 21:15 23:12 WBC 11.0 RBC 4.51 Hgb 13.9 Hct 41.1 MCV 91.1 MCH 30.8 MCHC 33.8 RDW Std Deviation 40.0 RDW Coeff of Carline 12.0 Plt Count 315 MPV 10.5 Immature Gran % (Auto) 0.300 Neut % (Auto) 49.4 Lymph % (Auto) 42.2 H [place] % (Auto) 6.0 Eos % (Auto) 1.6 Baso % (Auto) 0.5 Absolute Neuts (auto) 5.4 Absolute Lymphs (auto) 4.64 H Nucleated RBC % 0 Sodium 138 Potassium 3.7 Chloride 101 Carbon Dioxide 24.0 Anion Gap 13 BUN 10 Creatinine 0.78 Estim Creat Clear Calc 80.26 Est GFR (MDRD) Non-Af 102 BUN/Creatinine Ratio 12.3 Glucose 90 Calcium 10.0 Troponin T High Sens < 6 Troponin T Hi Sens 2 Hr 6 Radiography Diagnostic Testing: Clinical Impression(s) from Imaging Studies Chest X-Ray 07/23/25 21:34 IMPRESSION: No focal consolidations. 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 There is a issue with the chart not being put up in neither I nor the other physician realized that she had not been seen. I did sign her EKG initially and that apparently led to the confusion. They were understanding. She will be discharged to home on NSAIDs and she has no contraindication. Discharge Plan Triage Chief Complaint: Chest Pain ED Provider: Yusuf Roe Dx/Rx/DC Orders Clinical Impression: Pleurisy, Garcia's thyroiditis, Tobacco use disorder Instructions: ED Pleurisy Prescriptions: New naproxen [Naprosyn] 500 mg tablet 500 mg PO BID PRN (Reason: pain) Qty: 20 0RF Primary Care Provider: Romulo Kemp Referrals: Romulo Kemp, DO [Primary Care Provider, Medical] - 3-5 Days if not improving Print Language: Mexican Disposition Disposition: Home, Self Care
== END 2025-07-24 00:28 | disposition home or self-care (01) ==
PROVIDERS: Emergency Provider Emergency Medicine; PCP Student in an Organized Health Care Education/Training Program; Visit Provider Emergency Medicine
DX: R09.1 Pleurisy (principal); F17.210 Nicotine dependence, cigarettes, uncomplicated; R10.12 Left upper quadrant pain; E06.3 Autoimmune thyroiditis
CPT/HCPCS: 71046; 80048; 84484; 85025; 93005; 99284; A4216